=== PATIENT | female | born 1945 | race Caucasian/White ===

== ENCOUNTER → 2016-09-22 | Outpatient (CLI) | payer MEDICARE, BC ==
--- NOTE | 2016-09-23 08:55 | DEXA ---
AP SPINE L1 - L4 0.901 -2.4 -0.3 LT FEMUR TOTAL 0.748 -2.1 -0.3 RT FEMUR TOTAL 0.747 -2.1 -0.3 TOTAL BODY TOTAL OTHER DUAL FEMUR FRAX* ASSESSMENT Risk factors: Current hormone use. 10 year probability of fracture Major osteoporotic fracture 12.1 % Hip fracture 2.7 % COMMENTS: There is low bone density of the spine and hips. The decreased density of the spine does represent a significant change. The decreased density of the left hip does represent a significant change. The decreased density of the right hip does represent a significant change. The density of the spine has decreased 9.7% since the initial exam on 2000. The spine density has decreased 8.5% since the most recent exam on 02/01/2014. The density of the left hip has decreased 12.9% since the initial exam on 2000. The density of the left hip has decreased 3.0% since the most recent exam on . The density of the right hip has decreased 11.0% since the initial exam on 07/13. The density of the right hip has decreased 2.1% since the most recent exam on . FOLLOW-UP: Recommendation for the next bone density exam: 2 years. TIMMY
== END ==
LOC: M WHC 09:03
PROVIDERS: ATTEND Internal Medicine
DX: Z01.419 Encounter for gynecological examination (general) (routine) without abnormal findings (principal); M85.80 Other specified disorders of bone density and structure, unspecified site; Z78.0 Asymptomatic menopausal state; Z82.62 Family history of osteoporosis
CPT/HCPCS: 77080; G0101

== ENCOUNTER → 2017-06-25 | Day surgery (SDC) | payer MEDICARE, BC, OTHER ==
[~2017-06-25] MED LIST: LIDOCAINE 2% INJ 100 MG/5 ML SDV (FOR ANES.) As Ordered; PROPOFOL 200 MG/20 ML VIAL As Ordered
[2017-06-25] MEDS: NS 1,000 ML IV (09:42)
== END | disposition home or self-care (01) ==
LOC: M OPP 08:10
DX: K22.70 Barrett's esophagus without dysplasia (principal); K22.8 Other specified diseases of esophagus; K44.9 Diaphragmatic hernia without obstruction or gangrene; I10 Essential (primary) hypertension; E78.5 Hyperlipidemia, unspecified; R12 Heartburn; K21.9 Gastro-esophageal reflux disease without esophagitis; R51 Headache; Z78.0 Asymptomatic menopausal state; R06.83 Snoring; M85.80 Other specified disorders of bone density and structure, unspecified site; Z85.828 Personal history of other malignant neoplasm of skin; Z88.0 Allergy status to penicillin; Z88.2 Allergy status to sulfonamides; Z88.8 Allergy status to other drugs, medicaments and biological substances; Z91.013 Allergy to seafood
CPT/HCPCS: 43239

== ENCOUNTER → 2020-05-02 | Outpatient (CLI) | payer SELFPAY ==
[~2020-05-02] MED LIST changes: +AMLO2.5T3 PO; +ASPI81TA26 PO; +ATOR1TAB19 PO; +CALCTAB29 PO; +COEN60CA PO; +FISH500C PO; +KLOR10TA76 PO; -LIDOCAINE 2% INJ 100 MG/5 ML SDV (FOR ANES.) As Ordered; +LOSA100T50 PO; +MAGN400C2 PO; +MULT1TAB10 PO; +OMEP1CAP73 PO; -PROPOFOL 200 MG/20 ML VIAL As Ordered
== END ==
LOC: M LABSMTC 10:34
PROVIDERS: ATTEND Pediatrics
DX: Z20.828 Contact with and (suspected) exposure to other viral communicable diseases (principal)

== ENCOUNTER → 2020-09-11 | Outpatient (CLI) | payer MEDICARE, BC, OTHER ==
[~2020-09-11] MED LIST changes: +CALC600C3 PO; +GNP10TAB20 PO; +META0.52 PO; +VITMTA PO
== END ==
LOC: M LABSMTC 11:17
PROVIDERS: ATTEND Anesthesiology
DX: Z01.818 Encounter for other preprocedural examination (principal); Z11.52 Encounter for screening for COVID-19

== ENCOUNTER 2020-09-16 14:00 | Day surgery (SDC) | payer MEDICARE, BC, OTHER ==
[~2020-09-16] VITALS: Ht 152.4 cm; Wt 54.0 kg
[~2020-09-16 14:00] MED LIST changes: +NS 1,000 ML IV ONE
[2020-09-16] MEDS ORDERED: LIDOCAINE 2% 100MG/5ML SDV (FOR ANES.) As Ordered ONE (16:12)
[2020-09-16] MEDS ORDERED: fentaNYL 100 MCG/2 ML INJECTION (J3010) As Ordered ONE (16:12)
[2020-09-16] MEDS ORDERED: propofoL 200 MG/20 ML VIAL As Ordered ONE (16:12)
--- NOTE | 2020-09-16 16:22 | ROOR ---
Patient Name: Richa Santamaria Procedure Date: 09/16/2020 4:04 PM Date of : 1945 Age: 75 Room: [facility] Gender: Female Note Status: Finalized Procedure: Upper GI endoscopy Indications: Surveillance for malignancy due to personal history of Enriquez's esophagus Providers: Samy CARDOZA MD Referring MD: Marina MCARTHUR MD Requesting Provider: Medicines: Monitored Anesthesia Care Complications: No immediate complications. Procedure: Pre-Anesthesia Assessment: - The heart rate, respiratory rate, oxygen saturations, blood pressure, adequacy of pulmonary ventilation, and response to care were monitored throughout the procedure. The Endoscope was introduced through the mouth, and advanced to the second part of duodenum. The upper GI endoscopy was accomplished without difficulty. The patient tolerated the procedure well. Findings: The Z-line was variable and was found 37 cm from the incisors. Biopsies were taken with a cold forceps for histology. The examined esophagus was normal. Small Hiatal Hernia. The entire examined stomach was normal. A small diverticulum was found in the second portion of the duodenum. The examined duodenum was normal. Impression: - Z-line variable, 37 cm from the incisors. Biopsied. - Othrwise normal esophagus. - Small Hiatal Hernia, otherwise normal stomach. - Duodenal diverticulum, otherwise normal duodenum. Recommendation: - Repeat upper endoscopy in 3 years for surveillance. - Continue present medications. Procedure Code(s): --- Professional --- 20869, Esophagogastroduodenoscopy, flexible, transoral; with biopsy, single or multiple Diagnosis Code(s): --- Professional --- K57.10, Diverticulosis of small intestine without perforation or abscess without bleeding K22.8, Other specified diseases of esophagus K22.70, Enriquez's esophagus without dysplasia CPT copyright 2019 [employer]. All rights reserved. The codes documented in this report are preliminary and upon rig operator review may be revised to meet current compliance requirements. Samy Cardoza MD Samy CARDOZA MD 09/16/2020 4:22:04 PM Electronically signed by Samy CARDOZA MD Number of Addenda: 0 Note Initiated On: 09/16/2020 4:04 PM Estimated Blood Loss: Estimated blood loss: none.
[2020-09-16 16:45] VITALS: BP 184/78
== END 2020-09-16 16:57 | disposition home or self-care (01) ==
LOC: M OPP 14:00
PROVIDERS: ATTEND Internal Medicine Gastroenterology
DX: K22.8 Other specified diseases of esophagus (principal); K57.30 Diverticulosis of large intestine without perforation or abscess without bleeding; K21.9 Gastro-esophageal reflux disease without esophagitis; I10 Essential (primary) hypertension; K44.9 Diaphragmatic hernia without obstruction or gangrene; K31.89 Other diseases of stomach and duodenum; Z79.899 Other long term (current) drug therapy; Z88.0 Allergy status to penicillin; Z88.2 Allergy status to sulfonamides; Z88.8 Allergy status to other drugs, medicaments and biological substances; Z91.013 Allergy to seafood
CPT/HCPCS: 43239; 88305; J3010

== ENCOUNTER → 2020-10-17 | Outpatient (REF) | payer MEDICARE, OTHER ==
[~2020-10-17] MED LIST changes: -NS 1,000 ML IV ONE
== END ==
LOC: M LAB REF 17:17
PROVIDERS: ATTEND Internal Medicine
DX: N76.0 Acute vaginitis (principal)

== ENCOUNTER → 2020-11-25 | Outpatient (CLI) | payer MEDICARE, BC ==
--- NOTE | 2020-11-25 10:30 | REPMRS ---
Patient History The patient states she has not had a clinical breast exam in over a year. No known family history of cancer. Taking estrogen for 5 years. Took unspecified hormones for 7 years. No breast complaints today Patient signed the MRS sheet 1st covid vaccine 06/16/20-left arm-Pfizer 2nd covid vaccine 07/07/20--left arm Most recent mammos done @ [facility] Patient Identification Verified Digital Woman Screen Mammo: November 25, 2020 - Exam #: [id number] Bilateral CC and MLO view(s) were taken. Technologist: Hermelinda Foster, Technologist Prior study comparison: February 05, 2015, digital woman screen mammo performed at [facility]. November 29, 2014, left breast digital mammo diagnostic unilateral, performed at [facility]. FINDINGS: The breast tissue is heterogeneously dense. This may lower the sensitivity of mammography. Screening. Digital screening (2D) mammography was performed bilaterally in the CC and MLO projections. Additionally, breast tomosynthesis (3D mammography) was performed bilaterally in the CC and MLO projections. Todays exam was compared to the prior exam/exams. By history, the patient has no complaints of a palpable breast abnormality or other significant breast complaints. The breasts are unchanged in size and shape.Once again, dense heterogenous fibroglandular elements are seen bilaterally in a stable appearing pattern but to such a degree that the sensitivity of the mammogram in detecting cancer is decreased. There are no janelle-soft tissue densities or spiculated masses. There is no internal architectural distortion.Once again, stable benign appearing calcifications are seen. There are no suspicious janelle-calcific clusters. Skin thickening or nipple retraction is not present. IMPRESSION: BI-RADS Category 2- Benign Findings. There is no evidence of malignant alteration of the breasts. Followup examination recommended in one year. The Volpara volumetric breast density category is C, the breasts are heterogenously dense which may obscure small masses. This mammogram was read with the assistance of [employer],an FDA approved computer aided detection system for mammography. The lifetime Tyrer-Cuzick score is 3.4 % Due to the density of the breasts or Tyrer Cuzick score of 20% or greater, MRI/whole breast screening ultrasound is warranted. Negative x-ray reports should not delay surgical consultation if a dominant or clinically suspicious mass is present. Not all breast cancers can be identified by mammography. Therefore, we recommend that you continue to perform regular breast self-examination and physical examination and then promptly contact your physician of any concerns or changes. Adenosis and dense breasts may obscure an underlying neoplasm. Assessment: BI-RADS/ACR category 2 mammogram. Benign Findings. Recommendation Routine screening mammogram of both breasts in 1 year. Electronically Signed By: Jimbo Conte DO 11/25/20 [id number]
== END ==
LOC: M WHC 09:14
PROVIDERS: ATTEND Internal Medicine
DX: Z12.31 Encounter for screening mammogram for malignant neoplasm of breast (principal)

== ENCOUNTER → 2020-12-17 | Outpatient (REF) | payer MEDICARE, BC ==
[~2020-12-17] MED LIST changes: +CLON0.5T2 PO; +ESTR0.1C5 TOP; -KLOR10TA76 PO; +LOSA100T45 PO; -LOSA100T50 PO; +LOSA50TA28 PO; +POTA-136 PO; +REST0.05 OU
== END ==
LOC: M LAB REF 16:20
PROVIDERS: ATTEND Internal Medicine
DX: N76.0 Acute vaginitis (principal)

== ENCOUNTER → 2020-12-17 | Outpatient (CLI) | payer MEDICARE, BC ==
[~2020-12-17] MED LIST changes: -CLON0.5T2 PO; -ESTR0.1C5 TOP; +KLOR10TA76 PO; -LOSA100T45 PO; +LOSA100T50 PO; -LOSA50TA28 PO; -POTA-136 PO; -REST0.05 OU
--- NOTE | 2020-12-17 10:28 | DEXAMM ---
INDICATION: M85.80 [facility] DISRD OF BONE DENSITY AND STRUCTURE. COMPARISON: 09/22/2016 as well as other prior exams. TECHNIQUE: Bone density was measured using dual-energy x-ray absorptiometry (DEXA). FINDINGS: AP SPINE L1-L4 BMD 0.876 g/cm2 Young Adult T-Score -2.6 Age Matched Z-Score -0.8. LT FEMUR, TOTAL BMD 0.738 g/cm2 Young Adult T-Score -2.1 Age Matched Z-Score -0.4. LT NECK BMD 0.718 g/cm2 Young Adult T-Score -2.3 Age Matched Z-Score -0.4. RT FEMUR, TOTAL BMD 0.723 g/cm2 Young Adult T-Score -2.3 Age Matched Z-Score -0.5. RT NECK BMD 0.713 g/cm2 Young Adult T-Score -2.3 Age Matched Z-Score -0.4. IMPRESSION: There is osteoporosis of the spine. There is low bone density of the left hip. There is low bone density of the right hip. The density of the spine has decreased 12.2% since the initial exam on 07/13/2000. The density of the spine decreased 2.8% since most recent exam on 09/22/2016. The density of the left hip has decreased 14.1% since initial exam on 07/13/2000. The density of the left hip has decreased 1.3% since most recent exam on 09/22/2016. The density of the right hip has decreased 13.8% since the initial exam on 07/13/2000. The density of the right hip has decreased 3.2% since the most recent exam on 09/22/2016. FOLLOW-UP: Recommendation for the next bone density exam: 2 years. <Electronically signed by Davin Elder > 12/17/20 1024
== END ==
LOC: M WHC 08:50
PROVIDERS: ATTEND Internal Medicine
DX: M81.0 Age-related osteoporosis without current pathological fracture (principal); M85.851 Other specified disorders of bone density and structure, right thigh; M85.852 Other specified disorders of bone density and structure, left thigh; M85.88 Other specified disorders of bone density and structure, other site; N76.0 Acute vaginitis

== ENCOUNTER → 2021-03-01 | Outpatient (CLI) | payer MEDICARE, BC, OTHER ==
[~2021-03-01] MED LIST changes: -KLOR10TA76 PO; +POTA-136 PO
== END ==
LOC: M LABSMTC 11:18
PROVIDERS: ATTEND Anesthesiology
DX: Z01.818 Encounter for other preprocedural examination (principal); Z11.52 Encounter for screening for COVID-19

== ENCOUNTER 2021-03-06 06:07 | Day surgery (SDC) | payer MEDICARE, BC, OTHER ==
[~2021-03-06] VITALS: Ht 152.4 cm; Wt 50.8 kg
[~2021-03-06 06:07] MED LIST changes: +CLON0.5T2 PO; +ESTR0.1C5 TOP; +LIDOCAINE 1% MDV 20ML VIAL SQ PRN; +LOSA50TA88 PO; +PHENAZOPYRIDINE 100 MG TAB PO ONE; +REST0.05 OU; +UNRESOLVED CLARIFICATION ENTRY XX SCH
--- OUTSIDE RECORDS SUMMARY | 2021-03-06 06:15 | CCD | Continuity of Care Document ---
Author Author Richa Borges M.D. Organization Unknown Address [address] [facility] [address] [place] [address] Phone [phone] Care Team Providers Care Hand Paster Name Role Phone Marina Borges MD AUTM [phone] Farrah Henderson MD AUTM [phone] [facility] AUTM [phone] [facility] AUTM [phone] Oanh Melvin MD AUTM [phone] Samy Cardoza MD AUTM [phone] Ry Benitez DO AUTM [phone] Rama Shelton AUTM [phone] Problems Active Problems Provider Date Enriquez's esophagus Dheeraj Figueroa D.O. Onset: 2010 Osteoporosis Dheeraj Figueroa D.O. Onset: 2010 Essential hypertension Dheeraj Figueroa D.O. Onset: Gastroesophageal reflux disease Dheeraj Figueroa D.O. O nset: 04/29/2011 Pure hypercholesterolemia Dheeraj Figueroa D.O. Onset: 04/29/2011 Social History Type Date Description Comments Sex Unknown ETOH Use Consumes 1 glass of wine per day ETOH Use Occasionally consumes beer ETOH Use Occasionally consumes alcohol Tobacco Use Start: Unknown Patient has never smoked Allergies and adverse reactions Active Allergies Criticality Reaction | Severity Comments Date Shrimp Unable to assess criticality HIVES FACE SWELLS 01/25/2012 Sulfa Unable to assess criticality rash 02/24/2018 Penicillin Unable to assess criticality rash 02/24/2018 Compazine Unable to assess criticality muscle spasm s 02/24/2018 Medications Active Medications SIG Qnty Indications Ordering Provide r Date Clonazepam 0.5mg Tablets take 1/2 tablet by mouth twice a day (max 1 daily) 30tabs Marina sanchez M.D. 01/07/2021 Stool Softener 100mg Capsules 1-2 by mouth every day Marina Borges M.D. 01/08/20 21 Amlodipine Besylate 5mg Tablets Take 1 Tablet AT Bedtime 90tabs Marina Borges M.D. 2020 Losartan Potassium 50mg Tablets Take 1 Tablet Daily 90tabs Marina Borges M.D. 12/19/19 21 Atorvastatin Calcium 10mg Tablets Take 1 Tablet Daily 90tabs Marina Borges M.D. 07/23/19 21 Metamucil 28.3% Powder 1-2 tablespoon every morning as tolerated 1150gm Dwight Olivo 05/08/2020 Estradiol 0.1mg/GM Cream insert 1/2 gram vaginally twice a week 43units Marina Borges M.D. 1 06/06/2018 Restasis 0.05% Emulsion 1 drop both eyes twice a day Marina Borges M.D. 02/17/20 19 Fluticasone Propionate 50mcg/Act Suspension 2 sprays in each nostril once daily 16gm H68.002 [place]o [place], PATRICIO 02/24/2018 Epipen 2-Pineda 0.3mg/0 .3ML Solution Auto-Inject inject as directed prn 1units Marina Borges M.D. 04/04/[address] take 1 capsule by mouth in the morning 90caps Marina Borges M.D. 03/29/2014 Potassium Chloride ER 20Meq Tablet s ER 1 by mouth every day 90tabs Marina Borges M.D. 09/04 Magnesium 400mg Capsules 1 po bid Marina Borges M.D. 06/29/2013 Calcium Citrate + D [id number]-Kbsv Tablets 1 po qd 60tabs Marina Borges M.D. 11/14 Multivital Tablets 1 po qd Marina Borges M.D. 01/25/2012 Fish Oil Double Strength 1200mg Ca psules 1 po qd Marina Borges M.D. 01/25/20 12 Co Q10 200mg Capsules 1 by mouth every day Marina Borges M.D. 01/25/20 12 Saline Nasal Ignacio 0.65% Solution 6-8x/d as directed Marina Borges M.D. 04/29/20 11 Levocetirizine Dihydrochloride 5mg Tablets take one tablet by mouth every zhen Marina Borges M.D. History Medications Fluconazole 100mg Tablets 1 by mouth every day x7 d 7tabs Marina Borges M.D. 12/18/19 - 01/07/2021 Pessary Merida Marina Borges M.D. 0 12/04/2020 - 02/25/2021 Diflucan 150mg Tablets 1 by mouth x1 1tabs Marina Borges M.D. 10/21/2020 - Medications Administered in Office Medication SIG Qnty Indications Ordering Provider Date Administration Of Flu Vaccine Inj frank Borges M.D. 02/13/20 20 Administration Of Flu Vaccine Inj frank Borges M.D. 02/17/20 19 Administration Of Flu Vaccine Inj DULCE ThurmanP 02/24/2018 Administration Of Flu Vaccine Inj frank Borges M.D. 03/18/20 17 Administration Of Flu Vaccine Inj frank Borges M.D. 03/10/20 16 Administration Of Flu Vaccine Inj frank Borges M.D. 04/04/20 15 Administration Of Flu Vaccine Inj frank Borges M.D. 03/01/20 14 Administration Of Flu Vaccine Inj frank Borges M.D. 03/28/20 13 Administration Of Flu Vaccine Inj ection Marina Borges M.D. 02/23/20 12 Immunizations CPT Code Status Date Vaccine Lot # 48737 Given 02/13/2020 Influenza Vaccin e Quadrivalent Preser/Antibiotic Free Im Use [id number] 16125 Given 02/16/2019 Influenza Vaccin e Quadrivalent Preser/Antibiotic Free Im Use [id number] 82817 Given 02/24/2018 Influenza Virus Vaccine, Quadrivalent ([id number]), Derived From 9 Given 2017 Influenza Vaccin e Quadrivalent Preser/Antibiotic Free Im Use [id number] U-[id number] Given 02/11/2017 Prevnar 13 05433 Given 08/11/2016 Adacel- Tetanus Diphtheria P ertussis [id number] Q2037 Given 03/10/2016 Fluvirin Virus Vaccine 72990 01 Q2037 Given 04/04/2015 Fluvirin Virus Vaccine 11833 01 Q2037 Given 03/01/2014 Fluvirin Virus Vaccine 45098 21 Q2037 Given 03/28/2013 Fluvirin Virus Vaccine 50441 01 Q2037 Given 02/23/2012 Fluvirin Virus Vaccine 54348 01 64094 Given 01/25/2012 Pneumovax 23 [id number] Q2037 Given 03/10/2011 Fluvirin Virus Vaccine 96316 Given 02/17/2010 Influenza Virus Vaccine 97845 Refused 08/11/2018 Zoster Vaccine 34319 Refused 08/10/2017 Zoster Vaccine Vital Signs Date Vital Result Comment 02/25/2021 1:00pm BP Systolic 130 mmHg BP Diastolic 80 mmHg Heart Rate 87 /min Height 60.25 inches 5'0.25" Weight 114.00 lb BMI (Body Mass Index) 22.1 kg/m2 01/28/2021 1:44pm BP Systolic 144 mmHg RT Arm BP Diastolic 80 mmHg RT Arm Heart Rate 104 /min Height 60.25 inches 5'0.25" Weight 114.50 lb BMI (Body Mass Index) 22.2 kg/m2 Results Test Acquired Date Facility Test Result H/L Range Note Basic Metabolic Panel 02/24/2021 [facility] [employer] Consultant: Dr Michael Bullock [place] [id number] [phone] Glucose 96 mg/dL 74 - 99 1 BUN 6 mg/dL Low 7 - 18 Creatinine 0.7 mg/dL 0.6 - 1.3 Sodium 134 mEq/L Low 136 - 145 Potassium 4.1 mEq/L 3.5 - 5.1 Chloride 96 mEq/L Low 98 - 107 Carbon Dioxide 31 mEq/L 21 - 32 Calcium 9.3 mg/dL 8.5 - 10.1 GFR >= 60 mL/min >60 GFR >= 60 mL/min >60 2 Lipid Profile 02/24/2021 [facility] [employer] Consultant: [place] [address] [phone] Cholesterol 184 mg/dL 131 - 200 Triglycerides 45 mg/dL 30 - 150 HDL Cholesterol 99 mg/dL High 35 - 60 LDL (Calculated) 76 CALC 50 - 159 Laboratory test finding 02/24/2021 [facility] [employer] Consultant: [place] [address] [phone] Creatine Kinase(CK) 87 U/L 26 - 192 Basic Metabolic Panel 01/28/2021 [facility] [employer] Consultant: [place] [address] [phone] Glucose 137 mg/dL High 74 - 99 3 BUN 11 mg/dL 7 - 18 Creatinine 0.7 mg/dL 0.6 - 1.3 Sodium 137 mEq/L 136 - 145 Potassium 3.9 mEq/L 3.5 - 5.1 Chloride 100 mEq/L 98 - 107 Carbon Dioxide 31 mEq/L 21 - 32 Calcium 9.2 mg/dL 8.5 - 10.1 GFR >= 60 mL/min >60 GFR >= 60 mL/min >60 4 Laboratory test finding 01/28/2021 [facility] [employer] Consultant: [place] [address] [phone] Vitamin D 25-Hydroxy 54.0 ng/ml 24.0 - 80.0 5 Basic Metabolic Panel 01/15/2021 [facility] [employer] Consultant: [place] [address] [phone] Glucose 97 mg/dL 74 - 99 6 BUN 9 mg/dL 7 - 18 Creatinine 0.7 mg/dL 0.6 - 1.3 Sodium 136 mEq/L 136 - 145 Potassium 4.5 mEq/L 3.5 - 5.1 Chloride 100 mEq/L 98 - 107 Carbon Dioxide 26 mEq/L 21 - 32 Calcium 9.5 mg/dL 8.5 - 10.1 GFR >= 60 mL/min >60 GFR >= 60 mL/min >60 7 Basic Metabolic Panel 01/07/2021 [facility] [employer] Consultant: Dr Michael Bullock [place], [place] [id number] [phone] Glucose 132 mg/dL High 74 - 99 8 BUN 11 mg/dL 7 - 18 Creatinine 0.7 mg/dL 0.6 - 1.3 Sodium 133 mEq/L Low 136 - 145 Potassium 3.5 mEq/L 3.5 - 5.1 Chloride 98 mEq/L 98 - 107 Carbon Dioxide 32 mEq/L 21 - 32 Calcium 9.1 mg/dL 8.5 - 10.1 GFR >= 60 mL/min >60 GFR >= 60 mL/min >60 9 Basic Metabolic Panel 12/17/2020 [facility] [employer] Consultant: [place] [address] [phone] Glucose 148 mg/dL High 74 - 99 10 BUN 11 mg/dL 7 - 18 Creatinine 0.7 mg/dL 0.6 - 1.3 Sodium 134 mEq/L Low 136 - 145 Potassium 3.7 mEq/L 3.5 - 5.1 Chloride 97 mEq/L Low 98 - 107 Carbon Dioxide 31 mEq/L 21 - 32 Calcium 9.6 mg/dL 8.5 - 10.1 GFR >= 60 mL/min >60 GFR >= 60 mL/min >60 11 Laboratory test finding 12/17/2020 [facility] [address] [place], [place] [id number] [phone] Genital Culture FULL REPORT IN L <SEE NOTE> Normal 12 Complete Blood Count 12/03/2020 [facility] [employer] Consultant: [place] [address] [phone] WBC 6.5 x10*3/UL 4.1 - 10.9 RBC 4.38 x10*6/UL 4.20 - 6.30 Hemoglobin 14.3 g/dL 12.0 - 18.0 Hematocrit 41.2 % 37.0 - 51.0 MCV 94.0 fL 80.0 - 97.0 MCH 32.6 pg High 26.0 - 32.0 MCHC 34.7 g/dL 31.0 - 38.0 RDW 12.6 % 11.6 - 13.7 PLT 294 x10*3/UL 140 - 440 MPV 7.2 FL Low 7.8 - 11.0 Lymph % 21.4 % 10.0 - 58.5 Mid % 6.6 % 1.7 - 9.3 Neut % 72.0 % 37.0 - 92.0 Lymph # 1.4 x10*3/UL 0.6 - 4.1 Mid # 0.4 x10*3/UL 0.1 - 0.6 Neut # 4.7 x10*3/UL 2.0 - 7.8 Ua Dipstick Only 12/03/2020 [facility] [employer] Consultant: [place] [address] [phone] Urine Color YELLOW Yellow Urine Appearance CLOUDY Abnormal Clear Urine PH 8.0 units 5.0 - 9.0 Urine Specific Rotan 1.010 1.005 - 1.030 Urine Leukocytes LARGE Abnormal Negative Urine Blood NEGATIVE Negative Urine Protein NEGATIVE Negative -Trace Urine Glucose NEGATIVE mg/dL Negative Urine Nitrite NEGATIVE Negative Urine Ketone NEGATIVE mg/dL Negative Urine Bilirubin NEGATIVE Negative Urine Urobilinogen 0.2 mg/dL 0.2 - 1.0 Laboratory test finding 12/03/2020 [facility] [employer] Consultant: [place] [address] [phone] Thyroid Stimulating Hormone 2.77 uIU/mL 0.3 6 - 3.74 Lipid Profile 12/03/2020 [facility] [employer] Consultant: [place] [address] [phone] Cholesterol 166 mg/dL 131 - 200 Triglycerides 44 mg/dL 30 - 150 HDL Cholesterol 111 mg/dL High 35 - 60 LDL (Calculated) 46 CALC Low 50 - 159 Comprehensive Chem Profile 12/03/2020 [facility] [employer] Consultant: Dr Michael Funglogg [place], [place] [id number] [phone] Glucose 104 mg/dL High 74 - 99 13 BUN 8 mg/dL 7 - 18 Creatinine 0.7 mg/dL 0.6 - 1.3 Sodium 134 mEq/L Low 136 - 145 14 Potassium 3.9 mEq/L 3.5 - 5.1 Chloride 97 mEq/L Low 98 - 107 Carbon Dioxide 29 mEq/L 21 - 32 Calcium 9.4 mg/dL 8.5 - 10.1 Alk. Phosphatase 75 mg/dL 46 - 116 Total Bilirubin 0.9 mg/dL 0.2 - 1.0 Ast (Sgot) 32 U/L 15 - 37 Alt (SGPT) 31 U/L 12 - 78 Albumin 4.0 g/dL 3.4 - 5.0 Total Protein 7.3 g/dL 6.4 - 8.2 A/G Ratio 1.21 CALC 1.00 - 1.90 GFR >= 60 mL/min >60 GFR >= 60 mL/min >60 15 Laboratory test finding 12/03/2020 [facility] [employer] Consultant: Dr Michael Bullock [place], [place] [id number] [phone] Magnesium 1.8 mg/dL 1.8 - 2.4 Creatine Kinase(CK) 88 U/L 26 - 192 Xray 11/25/2020 [facility] [address] [place], [place] [id number] [phone] Dexa/Bone Density <pending> 3D Bi-Lateral Mammogram <pending> Laboratory test finding [facility]/17[facility] [address] [place] [address] [phone] Genital Culture FULL REPORT IN L <SEE NOTE> Normal 16 1 NOTE: LYTES VERIFIED 100-125 mg/dL PRE-DIABETES/FASTING >126 mg/dL DIABETES/FASTING 2 CHRONIC KIDNEY DISEASE STAGI NG PER NKF STAGE I & II GFR >= 60 NORMAL TO MILDLY DECREASED STAGE III GFR 30-59 MODERATELY DECREASED STAGE IV GFR 15-29 SEVERELY DECREASED STAGE V GFR <15 VERY LITTLE GFR LEFT ESRD GFR <15 ON ADJUSTMENT EXAMINER 3 100-125 mg/dL PRE-DIABET ES/FASTING >126 mg/dL DIABETES/FASTING 4 CHRONIC KIDNEY DISEASE STAGI NG PER NKF STAGE I & II GFR >= 60 NORMAL TO MILDLY DECREASED STAGE III GFR 30-59 MODERATELY DECREASED STAGE IV GFR 15-29 SEVERELY DECREASED STAGE V GFR <15 VERY LITTLE GFR LEFT ESRD GFR <15 ON ADJUSTMENT EXAMINER 5 This test was performed [employer] Vitamin D immunoassay kit. Values obtained with different assay methods should not be used interchangeably. 6 100-125 mg/dL PRE-DIABET ES/FASTING >126 mg/dL DIABETES/FASTING 7 CHRONIC KIDNEY DISEASE STAGI NG PER NKF STAGE I & II GFR >= 60 NORMAL TO MILDLY DECREASED STAGE III GFR 30-59 MODERATELY DECREASED STAGE IV GFR 15-29 SEVERELY DECREASED STAGE V GFR <15 VERY LITTLE GFR LEFT ESRD GFR <15 ON ADJUSTMENT EXAMINER 8 100-125 mg/dL PRE-DIABET ES/FASTING >126 mg/dL DIABETES/FASTING 9 CHRONIC KIDNEY DISEASE STAGI NG PER NKF STAGE I & II GFR >= 60 NORMAL TO MILDLY DECREASED STAGE III GFR 30-59 MODERATELY DECREASED STAGE IV GFR 15-29 SEVERELY DECREASED STAGE V GFR <15 VERY LITTLE GFR LEFT ESRD GFR <15 ON ADJUSTMENT EXAMINER 10 100-125 mg/dL PRE-DIABET ES/FASTING >126 mg/dL DIABETES/FASTING 11 CHRONIC KIDNEY DISEASE STAGI NG PER NKF STAGE I & II GFR >= 60 NORMAL TO MILDLY DECREASED STAGE III GFR 30-59 MODERATELY DECREASED STAGE IV GFR 15-29 SEVERELY DECREASED STAGE V GFR <15 VERY LITTLE GFR LEFT ESRD GFR <15 ON ADJUSTMENT EXAMINER 12 FULL REPORT IN LAB NOTES (eC W and Medent). NORMAL LIYAH PRESENT ORGANISM 1: YEAST LIKE ORGANISM QUANTITY OF GROWTH FEW ORGANISM 1: YEAST LIKE ORGANISM 13 100-125 mg/dL PRE-DIABET ES/FASTING >126 mg/dL DIABETES/FASTING 14 NOTE: LYTES VERIFIED 15 CHRONIC KIDNEY DISEASE STAGI NG PER NKF STAGE I & II GFR >= 60 NORMAL TO MILDLY DECREASED STAGE III GFR 30-59 MODERATELY DECREASED STAGE IV GFR 15-29 SEVERELY DECREASED STAGE V GFR <15 VERY LITTLE GFR LEFT ESRD GFR <15 ON ADJUSTMENT EXAMINER 16 FULL REPORT IN LAB NOTES (eC W and Medent). NORMAL LIYAH PRESENT ORGANISM 1: YEAST LIKE ORGANISM QUANTITY OF GROWTH FEW ORGANISM 1: YEAST LIKE ORGANISM Procedures Date Code Description Status 01/28/2021 41004 Office/Outpatient Established Mo d MDM 30-39 Min Completed 01/07/2021 47170 Office/Outpatient Established Mo d MDM 30-39 Min Completed 12/17/2020 60877 Office/Outpatient Established Mo d MDM 30-39 Min Completed 12/17/2020 [id number] Bone Mineral Density Test Comple king 12/04/2020 83094 Office/Outpatient Established Mo d MDM 30-39 Min Completed 11/25/2020 [id number] Mammogram Completed 10/17/2020 10685 Office/Outpatient Established Lo w MDM 20-29 Min Completed 11/23/2019 [id number] Mammogram Completed 09/27/2018 [id number] Mammogram Completed 09/27/2018 [id number] Bone Mineral Density Test Comple king 01/10/2018 [id number] Diabetic Retinal Eye Exam Comple king 12/22/2017 [id number] Diabetic Retinal Eye Exam Comple king 08/24/2017 [id number] Mammogram Completed 09/22/2016 [id number] Bone Mineral Density Test Comple king 08/13/2016 [id number] Mammogram Completed 02/05/2015 [id number] Mammogram Completed 12/20/2014 [id number] Colonoscopy Completed 11/29/2014 [id number] Mammogram Completed 02/01/2014 [id number] Mammogram Completed 02/01/2014 [id number] Bone Mineral Density Test Comple king 01/25/2013 [id number] Mammogram Completed 01/13/2012 [id number] Mammogram Completed 01/13/2012 [id number] Bone Mineral Density Test Comple king 12/11/2010 [id number] Mammogram Completed 12/25/2009 [id number] Bone Mineral Density Test Comple [facility] 10/26/2007 [id number] Colonoscopy Completed 07/13/2003 [id number] Mammogram Completed Medical Devices Description No Information Available Encounters Type Date Location Provider Dx Diagnosis Office Visit 01/28[facility]2021 1[facility] I10 Essential (primary) hyperten jana E87.1 Hypo-osmolality and hyponatr emia N76.0 Acute vaginitis N81.10 Cystocele, unspecified F41.9 Anxiety disorder, unspecifie d K22.70 Enriquez's esophagus without dysplasia M81.0 Age-related osteoporosis w/o current pathological fracture Office Visit 01/07/2021 2:45p [facility] N76.0 Acute vaginitis F41.9 Anxiety disorder, unspecifie d G25.81 Restless legs syndrome E87.1 Hypo-osmolality and hyponatr emia I10 Essential (primary) hyperten jana K59.00 Constipation, unspecified K22.70 Enriquez's esophagus without dysplasia Office Visit 12/17/2020 1:00p [facility] N76.0 Acute vaginitis F41.9 Anxiety disorder, unspecifie d E87.1 Hypo-osmolality and hyponatr emia I10 Essential (primary) hyperten jana K59.00 Constipation, unspecified K22.70 Enriquez's esophagus without dysplasia G25.81 Restless legs syndrome Office Visit 12/04/2020 8:45a [facility] N76.0 Acute vaginitis F41.9 Anxiety disorder, unspecifie d I10 Essential (primary) hyperten jana E87.1 Hypo-osmolality and hyponatr emia K59.00 Constipation, unspecified K22.70 Enriquez's esophagus without dysplasia E78.00 Pure hypercholesterolemia, u nspecified R73.09 Other abnormal glucose G25.81 Restless legs syndrome Office Visit 10/17/2020 1[facility]30p [facility] N76.0 Acute vaginitis F41.9 Anxiety disorder, unspecifie d Assessments Date Code Description Provider 01/28/2021 I10 Essential (primary) hypertension Marina Borges M.D. 01/28/2021 E87.1 Hypo-osmolality and hyponatremia Marina Borges M.D. 01/28/2021 N76.0 Acute vaginitis Marina contreras M.D. 01/28/2021 N81.10 Cystocele, unspecified Marina Borges M.D. 01/28/2021 F41.9 Anxiety disorder, unspecified Nasreen Borges M.D. 01/28/2021 K22.70 Enriquez's esophagus without dysp lasia Marina Borges M.D. 01/28/2021 M81.0 Age-related osteoporosis without current pathological fracture Marina Borges M.D. 01/15/2021 E87.1 Hypo-osmolality and hyponatremia Marina Borges M.D. 01/15/2021 E87.1 Hypo-osmolality and hyponatremia Lab Schedule 01/07/2021 N76.0 Acute vaginitis Marina contreras M.D. 01/07/2021 F41.9 Anxiety disorder, unspecified Nasreen Borges M.D. 01/07/2021 G25.81 Restless legs syndrome Marina Borges M.D. 01/07/2021 E87.1 Hypo-osmolality and hyponatremia Marina Borges M.D. 01/07/2021 I10 Essential (primary) hypertension Marina Borges M.D. 01/07/2021 K59.00 Constipation, unspecified Marina Borges M.D. 01/07/2021 K22.70 Enriquez's esophagus without dysp geovanyia Marina Borges M.D. 12/17/2020 N76.0 Acute vaginitis Marina contreras M.D. 12/17/2020 F41.9 Anxiety disorder, unspecified Nasreen Borges M.D. 12/17/2020 E87.1 Hypo-osmolality and hyponatremia Marina Borges M.D. 12/17/2020 I10 Essential (primary) hypertension Marina Borges M.D. 12/17/2020 K59.00 Constipation, unspecified Marina Borges M.D. 12/17/2020 K22.70 Enriquez's esophagus without dysp geovanyia Marina Borges M.D. 12/17/2020 G25.81 Restless legs syndrome Marina Borges M.D. 12/04/2020 N76.0 Acute vaginitis Marina contreras M.D. 12/04/2020 F41.9 Anxiety disorder, unspecified Nasreen Borges M.D. 12/04/2020 I10 Essential (primary) hypertension Marina Borges M.D. 12/04/2020 E87.1 Hypo-osmolality and hyponatremia Marina Borges M.D. 12/04/2020 K59.00 Constipation, unspecified Marina Borges M.D. 12/04/2020 K22.70 Enriquez's esophagus without dysp lasia Marina Borges M.D. 12/04/2020 E78.00 Pure hypercholesterolemia, unspe cified Marina Borges M.D. 12/04/2020 R73.09 Other abnormal glucose Marina Borges M.D. 12/04/2020 G25.81 Restless legs syndrome Marina Borges M.D. 12/03/2020 I10 Essential (primary) hypertension Marina Borges M.D. 12/03/2020 I10 Essential (primary) hypertension Lab Schedule 12/03/2020 E78.00 Pure hypercholesterolemia, unspe cified Marina Borges M.D. 12/03/2020 E78.00 Pure hypercholesterolemia, unspe cified Lab Schedule 12/03/2020 E87.1 Hypo-osmolality and hyponatremia Marina Borges M.D. 12/03/2020 E87.1 Hypo-osmolality and hyponatremia Lab Schedule 12/03/2020 E83.42 Hypomagnesemia Marina contreras M.D. 12/03/2020 E83.42 Hypomagnesemia Lab Schedule 10/17/2020 N76.0 Acute vaginitis Marina contreras M.D. 10/17/2020 F41.9 Anxiety disorder, unspecified Nasreen Borges M.D. Plan of Treatment Future Appointment(s):* 03/11/2021 8:00 am - Marina Borges M.D. at [facility] 01/28/2021 - Marina Borges M.D.* I10 Essential (primary) hypertension * E87.1 Hypo-osmolality and hyponatremia * N76.0 Acute vaginitis * N81.10 Cystocele, unspecified * F41.9 Anxiety disorder, unspecified * K22.70 Enriquez's esophagus without dysplasia * M81.0 Age-related osteoporosis without current pathological fracture Functional Status Description No Information Available Mental Status Description No Information Available Referrals Description No Information Available
--- OUTSIDE RECORDS SUMMARY | 2021-03-06 06:15 | CCD | Continuity of Care Document ---
Author Author Richa Borges M.D. Organization Unknown Address [address] [facility] [address] [place] [address] Phone [phone] Care Team Providers Care Manager Valuation Name Role Phone Marina Borges MD AUTM [phone] Farrah Henderson MD AUTM [phone] [facility] AUTM [phone] [facility] AUTM [phone] Oanh Melvin MD AUTM [phone] Samy Cardoza MD AUTM [phone] Ry Benitez DO AUTM [phone] Rama Shelton AUTM [phone] Problems Active Problems Provider Date Enriquez's esophagus [...] Borges M.D. 06/29/2013 Calcium Citrate + D [id number] Tablets 1 po qd 60tabs Mairna Borges M.D. 11/14 Multivital Tablets 1 po qd Marina Borges M.D. 01/25/2012 Fish Oil Double Strength 1200mg Ca psules 1 po qd Marina Borges M.D. 01/25/20 12 Co Q10 200mg Capsules 1 by mouth every day Marina Borges M.D. 01/25/20 12 Saline Nasal Sellers 0.65% Solution 6-8x/d as directed Marina Borges [...] Of Flu Vaccine Inj frank Borges M.D. 02/26/20 21 Administration Of Flu Vaccine Inj frank Borges M.D. 02/13/20 20 Administration Of Flu Vaccine Inj rfank Borges M.D. 02/17/20 19 Administration Of Flu Vaccine Inj frank [place] [facility] 02/24/2018 Administration Of Flu Vaccine Inj frank Borges M.D. 03/18/20 17 Administration Of Flu Vaccine Inj frank Borges M.D. 03/10/20 16 Administration Of Flu Vaccine Inj frank Borges M.D. 04/04/20 15 Administration Of Flu Vaccine Inj frank Borges M.D. 03/01/20 14 Administration Of Flu Vaccine Inj josephion Marina Borges M.D. 03/28/20 13 Administration Of Flu Vaccine Inj ection Marina Borges M.D. 02/23/20 12 Immunizations CPT Code Status Date Vaccine Lot # [id number] Given 02/25/2021 Influenza Vaccin e Quadrivalent Preser/Antibiotic [place] [id number] Given 02/13/2020 Influenza Vaccin e Quadrivalent Preser/Antibiotic Free Im Use [id number] 39329 Given 02/16/2019 Influenza Vaccin e Quadrivalent Preser/Antibiotic Free Im Use [id number] 75883 Given 02/24/2018 Influenza Virus Vaccine, Quadrivalent (Cciiv4), Derived From 5 Given 2017 Influenza Vaccin e Quadrivalent Preser/Antibiotic Free Im Use [id number] U-PneuC Given 02/11/2017 Prevnar 13 70587 Given 08/11/2016 Adacel- Tetanus Diphtheria P ertussis [id number] Q2037 Given 03/10/2016 Fluvirin Virus Vaccine 45872 01 Q2037 Given 04/04/2015 Fluvirin Virus Vaccine 15987 01 Q2037 Given 03/01/2014 Fluvirin Virus Vaccine 47102 21 Q2037 Given 03/28/2013 Fluvirin Virus Vaccine 21352 01 Q2037 Given 02/23/2012 Fluvirin Virus Vaccine 00720 01 95865 Given 01/25/2012 Pneumovax 23 [id number] Q2037 Given 03/10/2011 Fluvirin Virus Vaccine 66058 Given 02/17/2010 Influenza Virus Vaccine 65081 Refused 08/11/2018 Zoster Vaccine 47436 Refused 08/10/2017 Zoster Vaccine Vital Signs Date [...] Date Facility Test Result H/L Range Note Coronavirus 2019 Nasopharygeal 03/01/2021 [facility] [address] [place], [place] [id number] [phone] Coronavirus 2019 Nasopharygeal ASSAY INFORMATIO <SEE N OTE> 1 Laboratory test finding 02/24/2021 [facility] Semiconductor Processing Technician: Dr Michael Bullock [place], [place] [id number] [phone] Creatine Kinase(CK) 87 U/L 26 - 192 Basic Metabolic Panel 02/24/2021 [facility] Semiconductor Processing Technician: Dr Michael Bullock [place] [id number] [phone] Glucose 96 mg/dL 74 - 99 2 BUN 6 mg/dL Low 7 - 18 Creatinine 0.7 mg/dL 0.6 - 1.3 Sodium 134 mEq/L Low 136 - 145 Potassium 4.1 mEq/L 3.5 - 5.1 Chloride 96 mEq/L Low 98 - 107 Carbon Dioxide 31 mEq/L 21 - 32 Calcium 9.3 mg/dL 8.5 - 10.1 GFR >= 60 mL/min >60 GFR >= 60 mL/min >60 3 Lipid Profile 02/24/2021 [facility] Semiconductor Processing Technician: [place] [address] [phone] Cholesterol 184 mg/dL 131 - 200 Triglycerides 45 mg/dL 30 - 150 HDL Cholesterol 99 mg/dL High 35 - 60 LDL (Calculated) 76 CALC 50 - 159 Basic Metabolic Panel 01/28/2021 [facility] Semiconductor Processing Technician: [place] [address] [phone] Glucose 137 mg/dL High 74 - 99 4 BUN 11 mg/dL 7 - 18 Creatinine 0.7 mg/dL 0.6 - 1.3 Sodium 137 mEq/L 136 - 145 Potassium 3.9 mEq/L 3.5 - 5.1 Chloride 100 mEq/L 98 - 107 Carbon Dioxide 31 mEq/L 21 - 32 Calcium 9.2 mg/dL 8.5 - 10.1 GFR >= 60 mL/min >60 GFR >= 60 mL/min >60 5 Laboratory test finding 01/28/2021 [facility] Semiconductor Processing Technician: Dr Michael Bullock [place], [place] [id number] [phone] Vitamin D 25-Hydroxy 54.0 ng/ml 24.0 - 80.0 6 Basic Metabolic Panel 01/15/2021 [facility] Semiconductor Processing Technician: Dr Michael Bullock [place], [place] [id number] [phone] Glucose 97 mg/dL 74 - 99 7 BUN 9 mg/dL 7 - 18 Creatinine 0.7 mg/dL 0.6 - 1.3 Sodium 136 mEq/L 136 - 145 Potassium 4.5 mEq/L 3.5 - 5.1 Chloride 100 mEq/L 98 - 107 Carbon Dioxide 26 mEq/L 21 - 32 Calcium 9.5 mg/dL 8.5 - 10.1 GFR >= 60 mL/min >60 GFR >= 60 mL/min >60 8 Basic Metabolic Panel 01/07/2021 [facility] Semiconductor Processing Technician: Dr Michael Bullock [place], [place] [id number] [phone] Glucose 132 mg/dL High 74 - 99 9 BUN 11 mg/dL 7 - 18 Creatinine 0.7 mg/dL 0.6 - 1.3 Sodium 133 mEq/L Low 136 - 145 Potassium 3.5 mEq/L 3.5 - 5.1 Chloride 98 mEq/L 98 - 107 Carbon Dioxide 32 mEq/L 21 - 32 Calcium 9.1 mg/dL 8.5 - 10.1 GFR >= 60 mL/min >60 GFR >= 60 mL/min >60 10 Laboratory test finding 12/17/2020 [facility] [address] [place], [place] [id number] [phone] Genital Culture FULL REPORT IN L <SEE NOTE> Normal 11 Basic Metabolic Panel 12/17/2020 [facility] Semiconductor Processing Technician: [place] [address] [phone] Glucose 148 mg/dL High 74 - 99 12 BUN 11 mg/dL 7 - 18 Creatinine 0.7 mg/dL 0.6 - 1.3 Sodium 134 mEq/L Low 136 - 145 Potassium 3.7 mEq/L 3.5 - 5.1 Chloride 97 mEq/L Low 98 - 107 Carbon Dioxide 31 mEq/L 21 - 32 Calcium 9.6 mg/dL 8.5 - 10.1 GFR >= 60 mL/min >60 GFR >= 60 mL/min >60 13 Complete Blood Count 12/03/2020 [facility] vanessa atkinson Semiconductor Processing Technician: [place] [address] [phone] WBC 6.5 x10*3/UL 4.1 - 10.9 RBC [...] Neut # 4.7 x10*3/UL 2.0 - 7.8 Laboratory test finding 12/03/2020 [facility] saab Semiconductor Processing Technician: [place] [address] [phone] Magnesium 1.8 mg/dL 1.8 - 2.4 Creatine Kinase(CK) 88 U/L 26 - 192 Comprehensive Chem Profile 12/03/2020 [facility] Semiconductor Processing Technician: [place] [address] [phone] Glucose 104 mg/dL High 74 - 99 14 BUN 8 mg/dL 7 - 18 Creatinine 0.7 mg/dL 0.6 - 1.3 Sodium 134 mEq/L Low 136 - 145 15 Potassium 3.9 mEq/L 3.5 - 5.1 Chloride [...] mL/min >60 GFR >= 60 mL/min >60 16 Lipid Profile 12/03/2020 [facility] , Semiconductor Processing Technician: [place] [address] [phone] Cholesterol 166 mg/dL 131 - 200 Triglycerides 44 mg/dL 30 - 150 HDL Cholesterol 111 mg/dL High 35 - 60 LDL (Calculated) 46 CALC Low 50 - 159 Laboratory test finding 12/03/2020 [facility] Semiconductor Processing Technician: [place] [address] [phone] Thyroid Stimulating Hormone 2.77 uIU/mL 0.3 6 - 3.74 Ua Dipstick Only 12/03/2020 [facility] [place] [facility] Semiconductor Processing Technician: [place] [address] [phone] Urine Color YELLOW Yellow Urine Appearance CLOUDY Abnormal Clear Urine PH 8.0 units 5.0 - 9.0 Urine Specific [place] 1.010 1.005 - 1.030 Urine Leukocytes LARGE Abnormal Negative Urine Blood NEGATIVE Negative Urine Protein NEGATIVE Negative -Trace Urine Glucose NEGATIVE mg/dL Negative Urine Nitrite NEGATIVE Negative Urine Ketone NEGATIVE mg/dL Negative Urine Bilirubin NEGATIVE Negative Urine Urobilinogen 0.2 mg/dL 0.2 - 1.0 Xray 11/25/2020 [facility] [address] [place] [address] [phone] Dexa/Bone Density <pending> 3D Bi-Lateral Mammogram <pending> Laboratory test finding 10/17/2020 [facility] [address] [place] [address] [phone] Genital Culture FULL REPORT IN L <SEE NOTE> Normal 17 1 ASSAY INFORMATION: Real Time RT-PCR NOTE: The COVID-19 assay has been cleared by the U.S. Food and Drug Administration under the Emergency Use Authorization (EUA). [email or web address] and [employer] are designated as high complexity laboratories by the Clinical Laboratory Improvement Amendments of 1988(CLIA) and are qualified to perform this test. Not Detected 2 NOTE: LYTES VERIFIED 100-125 mg/dL PRE-DIABETES/FASTING >126 mg/dL DIABETES/FASTING 3 CHRONIC KIDNEY DISEASE STAGI NG PER NKF STAGE I & II GFR >= 60 NORMAL TO MILDLY DECREASED STAGE III GFR 30-59 MODERATELY DECREASED STAGE IV GFR 15-29 SEVERELY DECREASED STAGE V GFR <15 VERY LITTLE GFR LEFT ESRD GFR <15 ON HANDBAG DESIGNER 4 100-125 mg/dL PRE-DIABET ES/FASTING >126 mg/dL DIABETES/FASTING 5 CHRONIC KIDNEY DISEASE STAGI NG PER NKF STAGE I & II GFR >= 60 NORMAL TO MILDLY DECREASED STAGE III GFR 30-59 MODERATELY DECREASED STAGE IV GFR 15-29 SEVERELY DECREASED STAGE V GFR <15 VERY LITTLE GFR LEFT ESRD GFR <15 ON HANDBAG DESIGNER 6 This test was performed [employer] Vitamin D immunoassay kit. Values obtained with different assay methods should not be used interchangeably. 7 100-125 mg/dL PRE-DIABET ES/FASTING >126 mg/dL DIABETES/FASTING 8 CHRONIC KIDNEY DISEASE STAGI NG PER NKF STAGE I & II GFR >= 60 NORMAL TO MILDLY DECREASED STAGE III GFR 30-59 MODERATELY DECREASED STAGE IV GFR 15-29 SEVERELY DECREASED STAGE V GFR <15 VERY LITTLE GFR LEFT ESRD GFR <15 ON HANDBAG DESIGNER 9 100-125 mg/dL PRE-DIABET ES/FASTING >126 mg/dL DIABETES/FASTING 10 CHRONIC KIDNEY DISEASE STAGI NG PER NKF STAGE I & II GFR >= 60 NORMAL TO MILDLY DECREASED STAGE III GFR 30-59 MODERATELY DECREASED STAGE IV GFR 15-29 SEVERELY DECREASED STAGE V GFR <15 VERY LITTLE GFR LEFT ESRD GFR <15 ON HANDBAG DESIGNER 11 FULL REPORT IN LAB NOTES ([facility] and [facility]). NORMAL LIYAH PRESENT ORGANISM 1: YEAST LIKE ORGANISM QUANTITY OF GROWTH FEW ORGANISM 1: YEAST LIKE ORGANISM 12 100-125 mg/dL PRE-DIABET ES/FASTING >126 mg/dL DIABETES/FASTING 13 CHRONIC KIDNEY DISEASE STAGI NG PER NKF STAGE I & II GFR >= 60 NORMAL TO MILDLY DECREASED STAGE III GFR 30-59 MODERATELY DECREASED STAGE IV GFR 15-29 SEVERELY DECREASED STAGE V GFR <15 VERY LITTLE GFR LEFT ESRD GFR <15 ON HANDBAG DESIGNER 14 100-125 mg/dL PRE-DIABET ES/FASTING >126 mg/dL DIABETES/FASTING 15 NOTE: LYTES VERIFIED 16 CHRONIC KIDNEY DISEASE STAGI NG PER NKF STAGE I & II GFR >= 60 NORMAL TO MILDLY DECREASED STAGE III GFR 30-59 MODERATELY DECREASED STAGE IV GFR 15-29 SEVERELY DECREASED STAGE V GFR <15 VERY LITTLE GFR LEFT ESRD GFR <15 ON HANDBAG DESIGNER 17 FULL REPORT IN LAB NOTES ([facility] and [facility]). NORMAL LIYAH PRESENT ORGANISM 1: YEAST LIKE ORGANISM QUANTITY OF GROWTH FEW ORGANISM 1: YEAST LIKE ORGANISM Procedures Date Code Description Status 02/25/2021 93732 EKG/Interpretation & Report Comp leted 02/25/2021 92680 Office/Outpatient Established Mo d MDM 30-39 Min Completed 01/28/2021 77330 Office/Outpatient Established Mo d MDM 30-39 Min Completed 01/07/2021 55207 Office/Outpatient Established Mo d MDM 30-39 Min Completed 12/17/2020 46867 Office/Outpatient Established Mo d MDM 30-39 Min Completed 12/17/2020 [id number] Bone Mineral Density Test Comple king 12/04/2020 44476 Office/Outpatient Established Mo d MDM 30-39 Min Completed 11/25/2020 [id number] Mammogram Completed 10/17/2020 12158 Office/Outpatient Established Lo w MDM 20-29 Min Completed 11/23/2019 [id number] Mammogram Completed 09/27/2018 [id number] Mammogram Completed 09/27/2018 [id number] Bone Mineral Density Test Comple king 01/10/2018 [id number] Diabetic Retinal Eye Exam Comple king 12/22/2017 [id number] Diabetic Retinal Eye Exam Comple king 08/24/2017 [id number] Mammogram Completed 09/22/2016 [id number] Bone Mineral Density Test Comple king 08/13/2016 [id number] Mammogram Completed 02/05/2015 [id number] Mammogram Completed 12/20/2014 [id number] Colonoscopy Completed 11/29/2014 [id number] Mammogram Completed 02/01/2014 [id number] Mammogram Completed 02/01/2014 [id number] Bone Mineral Density Test Comple [facility] 01/25/2013 [id number] Mammogram Completed 01/13/2012 [id number] Mammogram Completed 01/13/2012 [id number] Bone Mineral Density Test Comple [facility] 12/11/2010 [id number] Mammogram Completed 12/25/2009 052103418 Bone Mineral Density Test Comple [facility] 10/26/2007 [id number] Colonoscopy Completed 07/13/2003 [id number] Mammogram Completed Medical Devices Description No Information Available Encounters Type Date Location Provider Dx Diagnosis Office Visit 02/25/2021 1:00p [facility] M[facility] 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 I10 Essential (primary) hyperten jana E87.1 Hypo-osmolality and hyponatr emia N76.0 Acute vaginitis N81.10 Cystocele, unspecified F41.9 Anxiety disorder, unspecifie d K22.70 Enriquez's esophagus without dysplasia M81.0 Age-related osteoporosis w/o current pathological fracture Office Visit 01/07/2021 2:45p [facility] M[facility] N76.0 Acute vaginitis F41.9 Anxiety disorder, unspecifie d G25.81 Restless legs syndrome E87.1 Hypo-osmolality and hyponatr emia I10 Essential (primary) hyperten jana K59.00 Constipation, unspecified K22.70 Enriquez's esophagus without dysplasia Office Visit 12/17/2020 1:00p [facility] M[facility] N76.0 Acute vaginitis F41.9 Anxiety disorder, unspecifie d E87.1 Hypo-osmolality and hyponatr emia I10 Essential (primary) hyperten jana K59.00 Constipation, unspecified K22.70 Enriquez's esophagus without dysplasia G25.81 Restless legs syndrome Office Visit 12/04/2020 8:45a [facility] N76.0 Acute vaginitis F41.9 Anxiety disorder, unspecifie d I10 Essential (primary) hyperten jana E87.1 Hypo-osmolality and hyponatr emia K59.00 Constipation, unspecified K22.70 Enriquez's esophagus without dysplasia E78.00 Pure hypercholesterolemia, u nspecified R73.09 Other abnormal glucose G25.81 Restless legs syndrome Office Visit 10/17/2020 1:30p [facility] N76.0 Acute vaginitis F41.9 Anxiety disorder, unspecifie d Assessments Date Code Description Provider 02/25/2021 Z01.810 Encounter for preprocedural card iovascular examination Marina Borges M.D. 02/25/2021 N81.2 Incomplete uterovaginal prolapse Marina Borges M.D. 02/25/2021 I10 Essential (primary) hypertension Marina Borges M.D. 02/25/2021 E78.00 Pure hypercholesterolemia, unspe cified Marina Borges M.D. 02/25/2021 R73.09 Other abnormal glucose Marina Borges M.D. 02/25/2021 K22.70 Enriquez's esophagus without dysp lasia Marina Borges M.D. 02/25/2021 M19.90 Unspecified osteoarthritis, unsp ecified site Marina Borges M.D. 02/25/2021 N95.2 Postmenopausal atrophic vaginiti s Marina Borges M.D. 02/25/2021 J30.9 Allergic rhinitis, unspecified J lyubov Borges M.D. 02/25/2021 M85.80 Other specified diso rders of bone density and structure, unspecified site Marina Borges M.D. 02/25/2021 G25.81 Restless legs syndrome Marina Borges M.D. 02/25/2021 Z23 Encounter for immunization Marina Borges M.D. 02/24/2021 E78.00 Pure hypercholesterolemia, unspe cified Marina Borges M.D. 02/24/2021 E78.00 Pure hypercholesterolemia, unspe cified Lab Schedule 02/24/2021 I10 Essential (primary) hypertension Marina Borges M.D. 02/24/2021 I10 Essential (primary) hypertension Lab Schedule 02/24/2021 E87.1 Hypo-osmolality and hyponatremia Marina Borges M.D. 02/24/2021 E87.1 Hypo-osmolality and hyponatremia Lab Schedule 01/28/2021 I10 Essential (primary) hypertension Marina Borges [...] 8:00 am - Marina Borges M.D. at [facility] 01/28/2021 - Marina Borges M.D.* [...]
--- OUTSIDE RECORDS SUMMARY | 2021-03-06 06:15 | CCD | Continuity of Care Document ---
Author Author Lab [facility] Organization Unknown Address [address] [place] [id number] Phone Unavailable Care Team Providers Care Clock Smith Name Role Phone Marina Borges MD AUTM [phone] Farrah Henderson MD AUTM [phone] [facility] AUTM [phone] [facility] AUTM [phone] Oanh Melvin MD AUTM [phone] Samy Cardoza MD AUTM [phone] Ry Benitez DO AUTM [phone] Rama Shelton AUTM [phone] Problems Active Problems Provider Date Enriquez's esophagus [...] Daily 90tabs Marina Borges M.D. 12/19/19 21 Pessary reyna Marina Borges M.D. 0 12/04/2020 Atorvastatin Calcium 10mg Tablets Take 1 Tablet [...] in each nostril once daily 16gm H68.002 PATRICIO Lyman 02/24/2018 Epipen 2-Pineda 0.3mg/0 .3ML Solution Auto-Inject [...] Borges M.D. 06/29/2013 Calcium Citrate + D [id number] Tablets 1 po qd 60tabs Marina Borges M.D. 11/14 Multivital Tablets 1 po qd Marina Borges M.D. 01/25/2012 Fish Oil Double Strength 1200mg Ca psules 1 po qd Marina Borges M.D. 01/25/20 12 Co Q10 200mg Capsules 1 by mouth every day Marina Borges M.D. 01/25/20 12 Saline Nasal [place] 0.65% Solution 6-8x/d as directed Marina Borges M.D. 04/29/20 11 Levocetirizine Dihydrochloride 5mg Tablets take one tablet by mouth every zhen Marina Borges M.D. History Medications Fluconazole 100mg Tablets 1 by mouth every day x7 d 7tabs Marina Borges M.D. 12/18/19 - 01/07/2021 Diflucan 150mg Tablets 1 by mouth x1 1tabs Marina Borges M.D. 10/21/2020 - Medications Administered in Office Medication SIG Qnty Indications Ordering Provider Date Administration Of Flu Vaccine Inj frank Borges M.D. 02/13/20 20 Administration Of Flu Vaccine Inj frank Borges M.D. 02/17/20 19 Administration Of Flu Vaccine Inj PATRICIO Thurman 02/24/2018 Administration Of Flu Vaccine Inj frank Borges M.D. 03/18/20 17 Administration Of Flu Vaccine Inj frank Borges M.D. 03/10/20 16 Administration Of Flu Vaccine Inj frank Borges M.D. 04/04/20 15 Administration Of Flu Vaccine Inj frank Borges M.D. 03/01/20 14 Administration Of Flu Vaccine Inj frank Borges M.D. 03/28/20 13 Administration Of Flu Vaccine Inj frank Borges M.D. 02/23/20 12 Immunizations CPT Code Status Date Vaccine Lot # [id number] Given 02/13/2020 Influenza Vaccin e Quadrivalent Preser/Antibiotic Free Im Use [id number] Given 02/16/2019 Influenza Vaccin e Quadrivalent Preser/Antibiotic Free Im Use [id number] 91725 Given 02/24/2018 Influenza Virus Vaccine, Quadrivalent ([id number]), Derived From 8 Given 2017 Influenza Vaccin e Quadrivalent Preser/Antibiotic Free Im Use [id number] Given 02/11/2017 Prevnar 13 76134 Given 08/11/2016 Adacel- Tetanus Diphtheria P ertussis [id number] Q2037 Given 03/10/2016 Fluvirin Virus Vaccine 05521 01 Q2037 Given 04/04/2015 Fluvirin Virus Vaccine 66737 01 Q2037 Given 03/01/2014 Fluvirin Virus Vaccine 36241 21 Q2037 Given 03/28/2013 Fluvirin Virus Vaccine 78647 01 Q2037 Given 02/23/2012 Fluvirin Virus Vaccine 08087 01 52265 Given 01/25/2012 Pneumovax 23 [id number] Q2037 Given 03/10/2011 Fluvirin Virus Vaccine 26685 Given 02/17/2010 Influenza Virus Vaccine [id number] Refused 08/11/2018 Zoster Vaccine 76971 Refused 08/10/2017 Zoster Vaccine Vital Signs Date Vital Result Comment 01/28/2021 1:44pm BP Systolic 144 mmHg RT Arm BP Diastolic 80 mmHg RT Arm Heart Rate 104 /min Height 60.25 inches 5'0.25" Weight 114.50 lb BMI (Body Mass Index) 22.2 kg/m2 01/07/2021 2:40pm BP Systolic 132 mmHg RT Arm BP Diastolic 86 mmHg RT Arm Heart Rate 80 /min Height 60.25 inches 5'0.25" Weight 116.00 lb BMI (Body Mass Index) 22.5 kg/m2 Results Test Acquired Date Facility Test Result H/L Range Note Basic Metabolic Panel 02/24/2021 [facility] Practice Management Consultant: [place] [address] [phone] Glucose 96 mg/dL 74 - 99 1 [...] 60 mL/min >60 2 Lipid Profile 02/24/2021 [facility] , Practice Management Consultant: Dr Michael Bullock [place] [id number] [phone] Cholesterol 184 mg/dL 131 - 200 Triglycerides 45 mg/dL 30 - 150 HDL Cholesterol 99 mg/dL High 35 - 60 LDL (Calculated) 76 CALC 50 - 159 Laboratory test finding 02/24/2021 [facility], Practice Management Consultant: Dr Michael Bullock [place] [id number] [phone] Creatine Kinase(CK) 87 U/L 26 - 192 Basic Metabolic Panel 01/28/2021 [facility] Practice Management Consultant: Dr Michael Bullock [place] [id number] [phone] Glucose 137 mg/dL High 74 - 99 [...] mL/min >60 4 Laboratory test finding 01/28/2021 [facility], Practice Management Consultant: Dr [place] [address] [phone] Vitamin D 25-Hydroxy 54.0 ng/ml 24.0 - 80.0 5 Basic Metabolic Panel 01/15/2021 [facility] Practice Management Consultant: [place] [address] [phone] Glucose 97 mg/dL 74 - 99 6 [...] mL/min >60 7 Basic Metabolic Panel 01/07/2021 [facility] Practice Management Consultant: [place] [address] [phone] Glucose 132 mg/dL High 74 - 99 [...] mL/min >60 9 Basic Metabolic Panel 12/17/2020 [facility] Practice Management Consultant: [place] [address] [phone] Glucose 148 mg/dL High 74 - 99 [...] mL/min >60 11 Laboratory test finding 12/17/2020 [facility] [address] [place] [address] [phone] Genital Culture FULL REPORT IN L <SEE NOTE> Normal 12 Complete Blood Count 12/03/2020 [facility] Practice Management Consultant: [place] [address] [phone] WBC 6.5 x10*3/UL 4.1 - 10.9 RBC [...] 2.0 - 7.8 Ua Dipstick Only 12/03/2020 [facility] , Practice Management Consultant: [place] [address] [phone] Urine Color YELLOW Yellow Urine Appearance CLOUDY Abnormal Clear Urine PH 8.0 units 5.0 - 9.0 Urine Specific [place] 1.010 1.005 - 1.030 Urine Leukocytes LARGE Abnormal Negative Urine Blood NEGATIVE Negative Urine Protein NEGATIVE Negative -Trace Urine Glucose NEGATIVE mg/dL Negative Urine Nitrite NEGATIVE Negative Urine Ketone NEGATIVE mg/dL Negative Urine Bilirubin NEGATIVE Negative Urine Urobilinogen 0.2 mg/dL 0.2 - 1.0 Laboratory test finding 12/03/2020 [facility], Practice Management Consultant: [place] [address] [phone] Thyroid Stimulating Hormone 2.77 uIU/mL 0.3 6 - 3.74 Lipid Profile 12/03/2020 [facility] Practice Management Consultant: [place] [address] [phone] Cholesterol 166 mg/dL 131 - 200 Triglycerides 44 mg/dL 30 - 150 HDL Cholesterol 111 mg/dL High 35 - 60 LDL (Calculated) 46 CALC Low 50 - 159 Comprehensive Chem Profile 12/03/2020 [facility] Practice Management Consultant: Dr Michael Bullock [place], [place] [id number] [phone] Glucose 104 mg/dL High 74 - 99 [...] mL/min >60 15 Laboratory test finding 12/03/2020 [facility] Practice Management Consultant: Dr Michael Funglogg [place], [place] [id number] [phone] Magnesium 1.8 mg/dL 1.8 - 2.4 Creatine Kinase(CK) 88 U/L 26 - 192 Xray 11/25/2020 [facility] [address], [place] [id number] [phone] Dexa/Bone Density <pending> 3D Bi-Lateral Mammogram <pending> Laboratory test finding 10/17/2020 [facility] [address] [place] [address] [phone] Genital Culture FULL REPORT IN L <SEE NOTE> Normal 16 1 NOTE: LYTES VERIFIED 100-125 mg/dL PRE-DIABETES/FASTING >126 mg/dL DIABETES/FASTING 2 CHRONIC KIDNEY DISEASE STAGI NG PER NKF STAGE I & II GFR >= 60 NORMAL TO MILDLY DECREASED STAGE III GFR 30-59 MODERATELY DECREASED STAGE IV GFR 15-29 SEVERELY DECREASED STAGE V GFR <15 VERY LITTLE GFR LEFT ESRD GFR <15 ON ROCK SINGER 3 100-125 mg/dL PRE-DIABET ES/FASTING >126 mg/dL DIABETES/FASTING 4 CHRONIC KIDNEY DISEASE STAGI NG PER NKF STAGE I & II GFR >= 60 NORMAL TO MILDLY DECREASED STAGE III GFR 30-59 MODERATELY DECREASED STAGE IV GFR 15-29 SEVERELY DECREASED STAGE V GFR <15 VERY LITTLE GFR LEFT ESRD GFR <15 ON ROCK SINGER 5 This test was performed usin [employer] Vitamin D immunoassay kit. Values obtained with [...] LITTLE GFR LEFT ESRD GFR <15 ON ROCK SINGER 8 100-125 mg/dL PRE-DIABET ES/FASTING >126 mg/dL DIABETES/FASTING 9 CHRONIC KIDNEY DISEASE STAGI NG PER NKF STAGE I & II GFR >= 60 NORMAL TO MILDLY DECREASED STAGE III GFR 30-59 MODERATELY DECREASED STAGE IV GFR 15-29 SEVERELY DECREASED STAGE V GFR <15 VERY LITTLE GFR LEFT ESRD GFR <15 ON ROCK SINGER 10 100-125 mg/dL PRE-DIABET ES/FASTING >126 mg/dL DIABETES/FASTING 11 CHRONIC KIDNEY DISEASE STAGI NG PER NKF STAGE I & II GFR >= 60 NORMAL TO MILDLY DECREASED STAGE III GFR 30-59 MODERATELY DECREASED STAGE IV GFR 15-29 SEVERELY DECREASED STAGE V GFR <15 VERY LITTLE GFR LEFT ESRD GFR <15 ON ROCK SINGER 12 FULL REPORT IN LAB NOTES (eC [...] LITTLE GFR LEFT ESRD GFR <15 ON ROCK SINGER 16 FULL REPORT IN LAB NOTES (eC W and Medent). NORMAL LIYAH PRESENT ORGANISM 1: YEAST LIKE ORGANISM QUANTITY OF GROWTH FEW ORGANISM 1: YEAST LIKE ORGANISM Procedures Date Code Description Status 01/28/2021 12401 Office/Outpatient Established Mo d MDM 30-39 Min Completed 01/07/2021 24854 Office/Outpatient Established Mo d MDM 30-39 Min Completed 12/17/2020 32147 Office/Outpatient Established Mo d MDM 30-39 Min Completed 12/17/2020 [id number] Bone Mineral Density Test Comple king 12/04/2020 86373 Office/Outpatient Established Mo d MDM 30-39 Min Completed 11/25/2020 [id number] Mammogram Completed 10/17/2020 07854 Office/Outpatient Established Lo w MDM 20-29 Min Completed 11/23/2019 [id number] Mammogram Completed 09/27/2018 [id number] Mammogram Completed 09/27/2018 [id number] Bone Mineral Density Test Comple king 01/10/2018 [id number] Diabetic Retinal Eye Exam Comple king 12/22/2017 [id number] Diabetic Retinal Eye Exam Comple king 08/24/2017 [id number] Mammogram Completed 09/22/2016 [id number] Bone Mineral Density Test Comple king 08/13/2016 [id number] Mammogram Completed 02/05/2015 [id number] Mammogram Completed 12/20/2014 [id number] Colonoscopy Completed 11/29/2014 [id number] Mammogram Completed 02/01/2014 [id number] Mammogram Completed 02/01/2014 859204521 Bone Mineral Density Test Comple king 01/25/2013 [id number] Mammogram Completed 01/13/2012 [id number] Mammogram Completed 01/13/2012 [id number] Bone Mineral Density Test Comple king 12/11/2010 [id number] Mammogram Completed 12/25/2009 [id number] Bone Mineral Density Test Comple king 10/26/2007 [id number] Colonoscopy Completed 07/13/2003 [id number] Mammogram Completed Medical Devices Description No Information Available Encounters Type Date Location Provider Dx Diagnosis Office Visit 01/28/2021 1:45p [facility] M.D. I10 Essential (primary) hyperten jana E87.1 Hypo-osmolality and hyponatr emia N76.0 Acute vaginitis N81.10 Cystocele, unspecified F41.9 Anxiety disorder, unspecifie d K22.70 Enriquez's esophagus without dysplasia M81.0 Age-related osteoporosis w/o current pathological fracture Office Visit 01/07/2021 2:45p [facility] M.D. N76.0 Acute vaginitis F41.9 Anxiety disorder, unspecifie d G25.81 Restless legs syndrome E87.1 Hypo-osmolality and hyponatr emia I10 Essential (primary) hyperten jana K59.00 Constipation, unspecified K22.70 Enriquez's esophagus without dysplasia Office Visit 12/17/2020 [facility]p [facility] N76.0 Acute vaginitis F41.9 Anxiety disorder, unspecifie d E87.1 Hypo-osmolality and hyponatr emia I10 Essential (primary) hyperten jana K59.00 Constipation, unspecified K22.70 Enriquez's esophagus without dysplasia G25.81 Restless legs syndrome Office Visit 12/04/2020 8:45a [facility] N76.0 Acute vaginitis F41.9 Anxiety disorder, unspecifie d I10 Essential (primary) hyperten jana E87.1 Hypo-osmolality and hyponatr emia K59.00 Constipation, unspecified K22.70 Enriquez's esophagus without dysplasia E78.00 Pure hypercholesterolemia, u nspecified R73.09 Other abnormal glucose G25.81 Restless legs syndrome Office Visit 10/17/2020 1:30p [facility] N76.0 Acute vaginitis [...] contreras M.D. 12/04/2020 F41.9 Anxiety disorder, unspecified Ju lie M. Jony, M.D. 12/04/2020 I10 Essential (primary) hypertension Marina [...] Borges M.D. Plan of Treatment Future Appointment(s):* 02/25/2021 1:00 pm - Marina Borges M.D. at [facility] * 03/11/2021 8:00 am - Marina Borges M.D. at [facility] 01/28/2021 - Marina Borges M.D.* [...]
--- OUTSIDE RECORDS SUMMARY | 2021-03-06 06:15 | CCD | Continuity of Care Document ---
Author Author Richa ESCALERA Organization Unknown Address [address] [place] [address] Phone [phone] Care Team Providers Care Tube Turner Name Role Phone Marina Borges MD [facility] [phone] Problems Description No Information Available Social History Type Date Description Comments Sex Unknown Tobacco Use Start: Unknown Never Smoked Cigarettes ETOH Use Non-smoker, Occasional Drinker, Non-drug User Tobacco Use Start: Unknown Patient has never smoked Smoking Status Reviewed: 02/11/21 Patient has never smoked Exercise Type/Frequency Exercises regularly Allergies and adverse reactions Active Allergies Criticality Reaction | Severity Comments Date shrimp Unable to assess criticality 05/22/2020 sulfa Unable to assess criticality 05/22/2020 Penicillin V Unable to assess criticality 05/22/2020 Compazine Unable to assess criticality 05/22/2020 Medications Active Medications SIG Qnty Indications Ordering Provide r Date Clobetasol Propionate E 0.05% Crea m apply to affected area twice a day 45grams R10.2 Sugar Escalera MD 1 Fluconazole 150mg Tablets 1 by mouth now and one tomorrow 2tabs B37.3 Sugar Escalera MD 02/24/2021 Metronidazole 500mg Tablets one tab by mouth twice a day x 7 days 14tabs N76.0 Sugar Escalera MD Trimo-Syed 0.025-0.01% Gel use vaginally as directed 113.400gm N76.0 Sugar Escalera MD 12/10/2020 Metronidazole 500mg Tablets one tab by mouth twice a day x 7 days 14tabs N76.0 Sugar Escalera MD Vitamin B12 TR 1000mcg Tablets ER Unknown Fish Oil 1000mg Capsules Unknown Magnesium 500mg Tablets 1 Tab Daily Unknown Calcium Citrate + D3 [id number] Tablets Unknown Potassium Chloride ER 10Meq Capsules ER Unknown Omeprazole 20mg Capsules DR 1 by mouth 2x/ day Unknown Nubia Allergy 60mg Tablets one by mouth daily as needed for allergy symptoms Unknown Losartan Potassium 100mg Tablets 1 Tab Daily Unknown Amlodipine Besylate 2.5mg Tablets 1 Tab AT Bedtime Unknown Fluticasone Propionate 50mcg/Act Suspension apply a very thin coat to groin area 2x/day as needed Unknown Restasis 0.05% Emulsion twice a day Unknown Estridiol 0.1 MG Cream Insert1 GM. Vaginally 2 Times A Week Unknown Buspirone HCL 15mg Tablets 1 Tab 3 Times Daily prn Unknown Metamucil 28.3% Powder 1-2 TBLS.Every Morning Unknown Levocetirizine Dihydrochloride 5mg Tablets 1 Tab AT Bedtime Unknown Lipitor 20mg Tablets 1 Tab Da adithya Unknown Saline Nasal [place] 0.65% Solution Unknown Coq10 200mg Capsules Every Da y Unknown Multivitamin Adult Tablets 1 by mouth every day Unknown Immunizations Description No Information Available Vital Signs Date Vital Result Comment 02/24/2021 2:28pm BP Systolic 140 mmHg BP Diastolic 80 mmHg 05/22/2020 7:25am BP Systolic 162 mmHg BP Diastolic 78 mmHg Height 59.50 inches 4'11.50" Weight 117.00 lb BMI (Body Mass Index) 23.2 kg/m2 BSA (Body Surface Area) 1.48 m2 Results Description No Information Available Procedures Date Code Description Status 02/24/2021 47042 Office/Outpatient Established Lo w MDM 20-29 Min Completed 02/11/2021 48733 Office/Outpatient Established Mo d MDM 30-39 Min Completed 12/10/2020 19409 Office/Outpatient Established Lo w MDM 20-29 Min Completed 12/10/2020 19169 Irrigation Of Vagina And/Or Appl ication Of Medicament Completed 11/27/2020 75136 Office/Outpatient Established Lo w MDM 20-29 Min Completed 11/19/2020 59992 Pessary Fitting & In sertion Of Pessary/Intravaginal Support Constanza Completed 09/25/2020 34181 Office/Outpatient Established Briana w MDM 20-29 Min Completed Medical Devices Description No Information Available Encounters Type Date Location Provider Dx Diagnosis Office Visit 02/24/2021 2:30p [facility] service correspondent Sugar Escalera MD B3 7.3 Candidiasis of vulva and vagina R10.2 Pelvic and perineal pain Office Visit 02/11/2021 9:30a [facility] service correspondent Sugar Escalera MD N8 1.11 Cystocele, midline N81.6 Rectocele N81.2 Incomplete uterovaginal prol apse Office Visit 12/10/2020 11:00a [facility] service correspondent Sugar Escalera MD N7 6.0 Acute vaginitis N81.11 Cystocele, midline N81.6 Rectocele 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 Office Visit 11/27/2020 2:15p [facility] service correspondent Sugar Escalera MD N7 6.0 Acute vaginitis N81.11 Cystocele, midline N81.6 Rectocele Office Visit 09/25/2020 2:00p [facility] service correspondent Sugar Escalera MD N7 6.0 Acute vaginitis Assessments Date Code Description Provider 02/24/2021 B37.3 Candidiasis of vulva and vagina Sugar Escalera MD 02/24/2021 R10.2 Pelvic and perineal pain Sugar Escalera MD 02/11/2021 N81.11 Cystocele, midline Glendy Escalera i, MD 02/11/2021 N81.6 Rectocele Sugar Escalera 02/11/2021 N81.2 Incomplete uterovaginal prolapse Sugar Escalera MD 12/10/2020 N76.0 Acute vaginitis Sugar Escalera 12/10/2020 N81.11 Cystocele, midline Glendy Escalera i, MD 12/10/2020 N81.6 Rectocele Sugar Escalera 12/10/2020 N95.2 Postmenopausal atrophic vaginiti s Sugar Escalera MD 11/27/2020 N76.0 Acute vaginitis Sugar Escalera 11/27/2020 N81.11 Cystocele, midline Glendy Escalera i, MD 11/27/2020 N81.6 Rectocele Sugar Escalera 11/19/2020 N81.11 Cystocele, midline Glendy Escalera i, MD 11/19/2020 N81.6 Rectocele Sugar Escalera 11/19/2020 N81.2 Incomplete uterovaginal prolapse Sugar Escalera MD 11/19/2020 N95.2 Postmenopausal atrophic vaginiti s Sugar Escalera MD 09/25/2020 N76.0 Acute vaginitis Sugar Escalera Plan of Treatment Future Appointment(s):* 04/16/2021 12:00 pm - Sugar Escalera MD at [facility] service correspondent * 03/19/2021 10:00 am - Sugar Escalera MD at [facility] service correspondent * 03/06/2021 10:00 am - Sugar Escalera MD at [facility] 02/24/2021 - Sugar Escalera MD* B37.3 Candidiasis of vulva and vagina* New Medication:* Fluconazole 150 mg - 1 by mouth now and one tomorrow * R10.2 Pelvic and perineal pain* New Medication:* Clobetasol Propionate E 0.05 % - apply to affected area twice a day Functional Status Description No Information Available Mental Status Description No Information Available Referrals Description No Information Available
--- OUTSIDE RECORDS SUMMARY | 2021-03-06 06:15 | CCD | Continuity of Care Document ---
Author Author Richa ESCALERA Organization Unknown Address [address] [place] [address] Phone [phone] Care Team Providers Care Marketing And Communications Officer Name Role Phone Marina Borges MD [facility] [phone] Problems Description No Information Available Social History [...] Tab Daily Unknown Calcium Citrate + D3 [id number]-Fzmr Tablets Unknown Potassium Chloride ER 10Meq Capsules [...] 1 Tab Da adithya Unknown Saline Nasal [place] 0.65% Solution Unknown Coq10 200mg Capsules Every [...] Available Procedures Date Code Description Status 02/24/2021 86169 Office/Outpatient Established Lo w MDM 20-29 Min Completed 02/11/2021 55653 Office/Outpatient Established Mo d MDM 30-39 Min Completed 12/10/2020 46996 Office/Outpatient Established Lo w MDM 20-29 Min Completed 12/10/2020 96995 Irrigation Of Vagina And/Or Appl ication Of Medicament Completed 11/27/2020 64732 Office/Outpatient Established Lo w MDM 20-29 Min Completed 11/19/2020 19398 Pessary Fitting & In sertion Of Pessary/Intravaginal Support Constanza Completed 09/25/2020 95158 Office/Outpatient Established Briana w MDM 20-29 Min Completed Medical Devices Description No Information Available Encounters Type Date Location Provider Dx Diagnosis Office Visit 02/24/2021 2:30p [facility] goods [facility] Sugar Escalera MD B3 7.3 Candidiasis of vulva and vagina R10.2 Pelvic and perineal pain Office Visit 02/11/2021 9:30a [facility] piece goods clerk Sugar Escalera MD N8 1.11 Cystocele, midline N81.6 Rectocele N81.2 Incomplete uterovaginal prol apse Office Visit 12/10/2020 11:00a [facility] piece goods clerk Sugar Escalera MD N7 6.0 Acute vaginitis N81.11 Cystocele, midline N81.6 Rectocele 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 Office Visit 11/27/2020 2:15p [facility] piece goods clerk Sugar Escalera MD N7 6.0 Acute vaginitis N81.11 Cystocele, midline N81.6 Rectocele Office Visit 09/25/2020 2:00p [facility] piece goods clerk Sugar Escalera MD N7 6.0 Acute vaginitis [...] Future Appointment(s):* 04/16/2021 12:00 pm - Sugar Escalrea MD at [facility] piece goods clerk * 03/19/2021 10:00 am - Sugar Escalera MD at [facility] piece goods clerk * 03/06/2021 10:00 am - Sugar Escalera MD at [facility] [place] 02/24/2021 - Sugar Escalera MD* B37.3 [...]
--- OUTSIDE RECORDS SUMMARY | 2021-03-06 06:15 | CCD | Continuity of Care Document ---
Author Author Richa Borges M.D. Organization Unknown Address [address] [facility] [address] [place] [address] Phone [phone] Care Team Providers Care Nuclear Plant Technical Advisor Name Role Phone Marina Borges MD AUTM [phone] Farrah Henderson MD AUTM [phone] [facility] AUTM [phone] [facility] AUTM [phone] Oanh Melvin MD AUTM [phone] Samy Cardoza MD AUTM [phone] Ry Benitez DO AUTM [phone] Rama Shelton AUTM [phone] Problems Active Problems Provider Date Enriquez's esophagus [...] Borges M.D. 06/29/2013 Calcium Citrate + D [id number] Tablets 1 po qd 60tabs Marina Borges M.D. 11/14 Multivital Tablets 1 po qd Marina Borges M.D. 01/25/2012 Fish Oil Double Strength 1200mg Ca psules 1 po qd Marina Borges M.D. 01/25/20 12 Co Q10 200mg Capsules 1 by mouth every day Marina Borges M.D. 01/25/20 12 Saline Nasal [place] 0.65% Solution 6-8x/d as directed Marina Borges [...] CPT Code Status Date Vaccine Lot # [id number] Given 02/13/2020 Influenza Vaccin e Quadrivalent Preser/Antibiotic Free Im Use [id number] 19703 Given 02/16/2019 Influenza Vaccin e Quadrivalent Preser/Antibiotic Free Im Use [id number] 40000 Given 02/24/2018 Influenza Virus Vaccine, Quadrivalent (Cciiv4), Derived From 0 Given 2017 Influenza Vaccin e Quadrivalent Preser/Antibiotic Free Im Use [id number] U-PneuC Given 02/11/2017 Prevnar 13 [id number] Given 08/11/2016 Adacel- Tetanus Diphtheria P ertussis [id number] Q2037 Given 03/10/2016 Fluvirin Virus Vaccine 42212 01 Q2037 Given 04/04/2015 Fluvirin Virus Vaccine 92116 01 Q2037 Given 03/01/2014 Fluvirin Virus Vaccine 07417 21 Q2037 Given 03/28/2013 Fluvirin Virus Vaccine 02752 01 Q2037 Given 02/23/2012 Fluvirin Virus Vaccine 90782 01 43188 Given 01/25/2012 Pneumovax 23 [id number] Q2037 Given 03/10/2011 Fluvirin Virus Vaccine 64143 Given 02/17/2010 Influenza Virus Vaccine 12380 Refused 08/11/2018 Zoster Vaccine 60438 Refused 08/10/2017 Zoster Vaccine Vital Signs Date [...] H/L Range Note Coronavirus 2019 Nasopharygeal 03/01/2021 [place] [address] [phone] Coronavirus 2019 Nasopharygeal ASSAY INFORMATIO <SEE N OTE> 1 Laboratory test finding 02/24/2021 [facility], Cell Manager: Dr Michael Mcdaniels [place] [id number] [phone] Creatine Kinase(CK) 87 U/L 26 - 192 Basic Metabolic Panel 02/24/[address] [facility], Cell Manager: Dr Michael Mcdaniels [place] [id number] [phone] Glucose 96 mg/dL 74 - 99 2 [...] 60 mL/min >60 3 Lipid Profile 02/24/2021 [facility] , Cell Manager: Dr Michael Mcdaniels [place] [id number] [phone] Cholesterol 184 mg/dL 131 - 200 Triglycerides 45 mg/dL 30 - 150 HDL Cholesterol 99 mg/dL High 35 - 60 LDL (Calculated) 76 CALC 50 - 159 Basic Metabolic Panel 01/28/[address] [facility], Cell Manager: Dr Michael Mcdaniels [place] [id number] [phone] Glucose 137 mg/dL High 74 - 99 [...] mL/min >60 5 Laboratory test finding 01/28/2021 [facility], Cell Manager: Dr Michael Mcdaniels [place] [id number] [phone] Vitamin D 25-Hydroxy 54.0 ng/ml 24.0 - 80.0 6 Basic Metabolic Panel 01/15/[address] [facility], Cell Manager: Dr Michael Bullock [place], [place] [id number] [phone] Glucose 97 mg/dL 74 - 99 7 [...] mL/min >60 8 Basic Metabolic Panel 01/07/[address] [facility], Cell Manager: Dr Michael Bullock [place], [place] [id number] [phone] Glucose 132 mg/dL High 74 - 99 [...] mL/min >60 10 Laboratory test finding 12/17/2020 [facility] [address] [place], [place] [id number] [phone] Genital Culture FULL REPORT IN L <SEE NOTE> Normal 11 Basic Metabolic Panel 12/17/[address] [facility], Cell Manager: Dr Michael Bullock [place], [place] [id number] [phone] Glucose 148 mg/dL High 74 - 99 [...] mL/min >60 13 Complete Blood Count 12/03/2020 [facility] Cell Manager: [place] [address] [phone] WBC 6.5 x10*3/UL 4.1 - 10.9 RBC [...] 2.0 - 7.8 Laboratory test finding 12/03/2020 [facility] saab Cell Manager: [place] [address] [phone] Magnesium 1.8 mg/dL 1.8 - 2.4 Creatine Kinase(CK) 88 U/L 26 - 192 Comprehensive Chem Profile 12/03/2020 [facility] Cell Manager: [place] [address] [phone] Glucose 104 mg/dL High 74 - 99 [...] 60 mL/min >60 16 Lipid Profile 12/03/2020 [facility] , Cell Manager: [place] [address] [phone] Cholesterol 166 mg/dL 131 - 200 Triglycerides 44 mg/dL 30 - 150 HDL Cholesterol 111 mg/dL High 35 - 60 LDL (Calculated) 46 CALC Low 50 - 159 Laboratory test finding 12/03/2020 [facility], Cell Manager: [place] [address] [phone] Thyroid Stimulating Hormone 2.77 uIU/mL 0.3 6 - 3.74 Ua Dipstick Only 12/03/2020 [facility] , Cell Manager: [place] [address] [phone] Urine Color YELLOW Yellow Urine Appearance CLOUDY Abnormal Clear Urine PH 8.0 units 5.0 - 9.0 Urine Specific [place] 1.010 1.005 - 1.030 Urine Leukocytes LARGE Abnormal Negative Urine Blood NEGATIVE Negative Urine Protein NEGATIVE Negative -Trace Urine Glucose NEGATIVE mg/dL Negative Urine Nitrite NEGATIVE Negative Urine Ketone NEGATIVE mg/dL Negative Urine Bilirubin NEGATIVE Negative Urine Urobilinogen 0.2 mg/dL 0.2 - 1.0 Xray 11/25/2020 [facility] [address] [place] [address] [phone] Dexa/Bone Density <pending> 3D Bi-Lateral Mammogram <pending> Laboratory test finding 10/17/2020 [facility] [address] [place] [address] [phone] Genital Culture FULL REPORT IN L <SEE NOTE> Normal 17 1 ASSAY INFORMATION: Real Time RT-PCR NOTE: The COVID-19 assay has been cleared by the U.S. Food and Drug Administration under the Emergency Use Authorization (EUA). [facility] are designated as high complexity laboratories by [...] LITTLE GFR LEFT ESRD GFR <15 ON [employer]OPE[employer] WORK[employer] 4 100-125 mg/dL PRE-DIABET ES/FASTING >126 mg/dL DIABETES/FASTING 5 CHRONIC KIDNEY DISEASE STAGI NG PER NKF STAGE I & II GFR >= 60 NORMAL TO MILDLY DECREASED STAGE III GFR 30-59 MODERATELY DECREASED STAGE IV GFR 15-29 SEVERELY DECREASED STAGE V GFR <15 VERY LITTLE GFR LEFT ESRD GFR <15 ON [employer] WORKER 6 This test was performed [employer] Vitamin D immunoassay kit. Values obtained with [...] LITTLE GFR LEFT ESRD GFR <15 ON [employer] WORKER 9 100-125 mg/dL PRE-DIABET ES/FASTING >126 mg/dL DIABETES/FASTING 10 CHRONIC KIDNEY DISEASE STAGI NG PER NKF STAGE I & II GFR >= 60 NORMAL TO MILDLY DECREASED STAGE III GFR 30-59 MODERATELY DECREASED STAGE IV GFR 15-29 SEVERELY DECREASED STAGE V GFR <15 VERY LITTLE GFR LEFT ESRD GFR <15 ON [employer] WORKER 11 FULL REPORT IN LAB NOTES (eC [...] LITTLE GFR LEFT ESRD GFR <15 ON [employer] WORKER 14 100-125 mg/dL PRE-DIABET ES/FASTING >126 mg/dL DIABETES/FASTING 15 NOTE: LYTES VERIFIED 16 CHRONIC KIDNEY DISEASE STAGI NG PER NKF STAGE I & II GFR >= 60 NORMAL TO MILDLY DECREASED STAGE III GFR 30-59 MODERATELY DECREASED STAGE IV GFR 15-29 SEVERELY DECREASED STAGE V GFR <15 VERY LITTLE GFR LEFT ESRD GFR <15 ON [employer] L[employer] WORKER 17 FULL REPORT IN LAB NOTES (eC [facility] and [facility]). NORMAL LIYAH PRESENT ORGANISM 1: YEAST LIKE ORGANISM QUANTITY OF GROWTH FEW ORGANISM 1: YEAST LIKE ORGANISM Procedures Date Code Description Status 01/28/2021 99225 Office/Outpatient Established Mo d MDM 30-39 Min Completed 01/07/2021 83496 Office/Outpatient Established Mo d MDM 30-39 Min Completed 12/17/2020 79129 Office/Outpatient Established Mo d MDM 30-39 Min Completed 12/17/2020 [id number] Bone Mineral Density Test Comple king 12/04/2020 43911 Office/Outpatient Established Mo d MDM 30-39 Min Completed 11/25/2020 [id number] Mammogram Completed 10/17/2020 90198 Office/Outpatient Established Lo w MDM 20-29 Min Completed 11/23/2019 [id number] Mammogram Completed 09/27/2018 [id number] Mammogram Completed 09/27/2018 [id number] Bone Mineral Density Test Comple king 01/10/2018 [id number] Diabetic Retinal Eye Exam Comple king 12/22/2017 900310527 Diabetic Retinal Eye Exam Comple [facility] 08/24/2017 [id number] Mammogram Completed 09/22/2016 [id number] Bone Mineral Density Test Comple king 08/13/2016 [id number] Mammogram Completed 02/05/2015 [id number] Mammogram Completed 12/20/2014 39851054 Colonoscopy Completed 11/29/2014 [id number] Mammogram Completed 02/01/2014 [id number] Mammogram Completed 02/01/2014 [id number] Bone Mineral Density Test Comple king 01/25/2013 [id number] Mammogram Completed 01/13/2012 [id number] Mammogram Completed 01/13/2012 120198705 Bone Mineral Density Test Comple king 12/11/2010 [id number] Mammogram Completed 12/25/2009 [id number] Bone Mineral Density Test Comple [facility] 10/26/2007 73175098 Colonoscopy Completed 07/13/2003 [id number] Mammogram Completed Medical Devices Description No Information Available Encounters Type Date Location Provider Dx Diagnosis Office Visit 01/28/2021 1:45p [facility] [place] [facility] M.[facility] I10 Essential (primary) hyperten jana E87.1 Hypo-osmolality and hyponatr emia N76.0 Acute vaginitis N81.10 Cystocele, unspecified F41.9 Anxiety disorder, unspecifie d K22.70 Enriquez's esophagus without dysplasia M81.0 Age-related osteoporosis w/o current pathological fracture Office Visit 01/07/2021 2:45p [place] [facility] M.D. N76.0 Acute vaginitis F41.9 Anxiety disorder, unspecifie d G25.81 Restless legs syndrome E87.1 Hypo-osmolality and hyponatr emia I10 Essential (primary) hyperten jana K59.00 Constipation, unspecified K22.70 Enriquez's esophagus without dysplasia Office Visit 12/17/2020 1:00p [facility] [place] [facility] M.D. N76.0 Acute vaginitis F41.9 Anxiety disorder, unspecifie d E87.1 Hypo-osmolality and hyponatr emia I10 Essential (primary) hyperten jana K59.00 Constipation, unspecified K22.70 Enriquez's esophagus without dysplasia G25.81 Restless legs syndrome Office Visit 12/04/2020 8:45a [facility] [place] [facility] M.D. N76.0 Acute vaginitis F41.9 Anxiety disorder, unspecifie d I10 Essential (primary) hyperten jana E87.1 Hypo-osmolality and hyponatr emia K59.00 Constipation, unspecified K22.70 Enriquez's esophagus without dysplasia E78.00 Pure hypercholesterolemia, u nspecified R73.09 Other abnormal glucose G25.81 Restless legs syndrome Office Visit 10/17/2020 1:30p [facility] [place] [facility] M.D. N76.0 Acute vaginitis F41.9 Anxiety disorder, unspecifie d Assessments Date Code Description Provider 02/24/2021 E78.00 Pure hypercholesterolemia, unspe cified Marina [...] Borges M.D. 01/07/2021 E87.1 Hypo-osmolality and hyponatremia Marnia Borges M.D. 01/07/2021 I10 Essential (primary) hypertension [...] M.D. 12/04/2020 K22.70 Enriquez's esophagus without dysp geovanyia Marina Borges M.D. 12/04/2020 E78.00 Pure hypercholesterolemia, [...] 8:00 am - [facility] 01/28/2021 - Marina Borges M.D.* I10 [...]
--- OUTSIDE RECORDS SUMMARY | 2021-03-06 06:15 | CCD | Continuity of Care Document ---
Author Author Richa ESCALERA Organization Unknown Address [address] [place] [address] Phone [phone] Care Team Providers Care Brand Marketing Manager Name Role Phone Marina Borges MD [facility] [phone] Problems Description No Information Available Social History [...] Tab Daily Unknown Calcium Citrate + D3 [id number] Tablets Unknown Potassium Chloride ER 10Meq Capsules [...] 1 Tab Da adithya Unknown Saline Nasal [place] 0.65% Solution Unknown Coq10 200mg Capsules Every [...] Available Procedures Date Code Description Status 02/24/2021 58739 Office/Outpatient Established Lo w MDM 20-29 Min Completed 02/11/2021 25803 Office/Outpatient Established Mo d MDM 30-39 Min Completed 12/10/2020 02344 Office/Outpatient Established Lo w MDM 20-29 Min Completed 12/10/2020 76576 Irrigation Of Vagina And/Or Appl ication Of Medicament Completed 11/27/2020 39106 Office/Outpatient Established Lo w MDM 20-29 Min Completed 11/19/2020 64741 Pessary Fitting & In sertion Of Pessary/Intravaginal Support Constanza Completed 09/25/2020 26007 Office/Outpatient Established Briana w MDM 20-29 Min Completed Medical Devices Description No Information Available Encounters Type Date Location Provider Dx Diagnosis Office Visit 02/24/2021 2:30p [facility] Sugar Escalera MD B3 7.3 Candidiasis of vulva and vagina R10.2 Pelvic and perineal pain Office Visit 02/11/2021 9:30a [facility] Sugar Escalera MD N8 1.11 Cystocele, midline N81.6 Rectocele N81.2 Incomplete uterovaginal prol apse Office Visit 12/10/2020 11:00a [facility] [employer] [facility] Sugar Escalera MD N7 6.0 Acute vaginitis N81.11 Cystocele, midline N81.6 Rectocele 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 Office Visit 11/27/2020 2:15p [facility] Sugar Escalera MD N7 6.0 Acute vaginitis N81.11 Cystocele, midline N81.6 Rectocele Office Visit 09/25/2020 2:00p [facility] [employer] [facility] Sugar Escalera MD N7 6.0 Acute vaginitis [...] Escalera i, MD 11/19/2020 N81.6 Rectocele Sugar sEcalera 11/19/2020 N81.2 Incomplete uterovaginal prolapse Sugar Escalera MD 11/19/2020 N95.2 Postmenopausal atrophic vaginiti s Sugar Escalera MD 09/25/2020 N76.0 Acute vaginitis Sugar Escalera Plan of Treatment Future Appointment(s):* 04/16/2021 12:00 pm - Sugar Escalera MD at [facility] glove brusher * 03/19/2021 10:00 am - Sugar Escalera MD at [facility] glove brusher * 03/06/2021 10:00 am - Sugar Escalera [...]
--- OUTSIDE RECORDS SUMMARY | 2021-03-06 06:15 | CCD | Continuity of Care Document ---
Author Author Lab Schedule[facility] Organization Unknown Address [address] [place] [address] Phone Unavailable Care Team Providers Care Police Artist Name Role Phone Marina Borges MD AUTM [phone] Farrah Henderson MD AUTM [phone] [facility] AUTM [phone] [facility] AUTM [phone] Oanh Melvin MD AUTM [phone] Samy Cardoza MD AUTM [phone] Ry Benitez DO AUTM [phone] Rama Shelton AUTM [phone] Problems Active Problems Provider Date Enriquez's esophagus [...] Borges M.D. 06/29/2013 Calcium Citrate + D [id number] Tablets 1 po qd 60tabs Marina Borges M.D. 11/14 Multivital Tablets 1 po qd Marina Borges M.D. 01/25/2012 Fish Oil Double Strength 1200mg Ca psules 1 po qd Marina Borges M.D. 01/25/20 12 Co Q10 200mg Capsules 1 by mouth every day Marina Borges M.D. 01/25/20 12 Saline Nasal [place] 0.65% Solution 6-8x/d as directed Marina Borges M.D. 04/29/20 11 Levocetirizine Dihydrochloride 5mg Tablets take one tablet by mouth every zhen Marina Borges M.D. History Medications Fluconazole 100mg Tablets 1 by mouth every day x7 d 7tabs Marina Borges M.D. 12/18/19 21 - 01/07/2021 Pessary Merida Marina Borges M.D. [...] CPT Code Status Date Vaccine Lot # [id number] Given 02/13/2020 Influenza Vaccin e Quadrivalent Preser/Antibiotic Free Im Use [id number] 08275 Given 02/16/2019 Influenza Vaccin e Quadrivalent Preser/Antibiotic Free Im Use 510504 41992 Given 02/24/2018 Influenza Virus Vaccine, Quadrivalent (Cciiv4), Derived From 3 Given 2017 Influenza Vaccin e Quadrivalent Preser/Antibiotic Free Im Use [id number] U-PneuC Given 02/11/2017 Prevnar 13 55345 Given 08/11/2016 Adacel- Tetanus Diphtheria P ertussis [id number] Q2037 Given 03/10/2016 Fluvirin Virus Vaccine 16063 01 Q2037 Given 04/04/2015 Fluvirin Virus Vaccine 61841 01 Q2037 Given 03/01/2014 Fluvirin Virus Vaccine 41501 21 Q2037 Given 03/28/2013 Fluvirin Virus Vaccine 43125 01 Q2037 Given 02/23/2012 Fluvirin Virus Vaccine 27999 01 26327 Given 01/25/2012 Pneumovax 23 [id number] Q2037 Given 03/10/2011 Fluvirin Virus Vaccine 92016 Given 02/17/2010 Influenza Virus Vaccine 38107 Refused 08/11/2018 Zoster Vaccine 29534 Refused 08/10/2017 Zoster Vaccine Vital Signs Date [...] H/L Range Note Basic Metabolic Panel 02/24/2021 [facility] Lens Generator: [place] [address] [phone] Glucose 96 mg/dL 74 - 99 1 [...] 60 mL/min >60 2 Lipid Profile 02/24/2021 [facility] , Lens Generator: Dr [place] [address] [phone] Cholesterol 184 mg/dL 131 - 200 Triglycerides 45 mg/dL 30 - 150 HDL Cholesterol 99 mg/dL High 35 - 60 LDL (Calculated) 76 CALC 50 - 159 Laboratory test finding 02/24/2021 [facility], Lens Generator: Dr Michael [place] [address] [phone] Creatine Kinase(CK) 87 U/L 26 - 192 Basic Metabolic Panel 01/28/2021 [facility] Lens Generator: Dr Michael Bullock [place] [id number] [phone] Glucose 137 mg/dL High 74 - 99 [...] mL/min >60 4 Laboratory test finding 01/28/2021 [facility], Lens Generator: Dr [place] [address] [phone] Vitamin D 25-Hydroxy 54.0 ng/ml 24.0 - 80.0 5 Basic Metabolic Panel 01/15/2021 [facility] Lens Generator: Dr Michael [place] [address] [phone] Glucose 97 mg/dL 74 - 99 6 [...] mL/min >60 7 Basic Metabolic Panel 01/07/2021 [facility] Lens Generator: [place] [address] [phone] Glucose 132 mg/dL High 74 - 99 [...] mL/min >60 9 Basic Metabolic Panel 12/17/2020 [facility] Lens Generator: [place] [address] [phone] Glucose 148 mg/dL High 74 - 99 [...] mL/min >60 11 Laboratory test finding 12/17/2020 [facility] [address] [place] [address] [phone] Genital Culture FULL REPORT IN L <SEE NOTE> Normal 12 Complete Blood Count 12/03/2020 [facility] Lens Generator: [place] [address] [phone] WBC 6.5 x10*3/UL 4.1 - 10.9 RBC [...] 2.0 - 7.8 Ua Dipstick Only 12/03/2020 [facility] , Lens Generator: Dr [place] [address] [phone] Urine Color YELLOW Yellow Urine Appearance CLOUDY Abnormal Clear Urine PH 8.0 units 5.0 - 9.0 Urine Specific Soldier 1.010 1.005 - 1.030 Urine Leukocytes LARGE Abnormal Negative Urine Blood NEGATIVE Negative Urine Protein NEGATIVE Negative -Trace Urine Glucose NEGATIVE mg/dL Negative Urine Nitrite NEGATIVE Negative Urine Ketone NEGATIVE mg/dL Negative Urine Bilirubin NEGATIVE Negative Urine Urobilinogen 0.2 mg/dL 0.2 - 1.0 Laboratory test finding 12/03/2020 [facility], Lens Generator: Dr [place] [address] [phone] Thyroid Stimulating Hormone 2.77 uIU/mL 0.3 6 - 3.74 Lipid Profile 12/03/2020 [facility] , Lens Generator: Dr Michael [place] [address] [phone] Cholesterol 166 mg/dL 131 - 200 Triglycerides 44 mg/dL 30 - 150 HDL Cholesterol 111 mg/dL High 35 - 60 LDL (Calculated) 46 CALC Low 50 - 159 Comprehensive Chem Profile 12/03/2020 [facility], Lens Generator: Dr Michael Bullock [place], [place] [id number] [phone] Glucose 104 mg/dL High 74 - 99 [...] mL/min >60 15 Laboratory test finding 12/03/2020 [facility]: Dr Michael Bullock [place], [place] [id number] [phone] Magnesium 1.8 mg/dL 1.8 - 2.4 Creatine Kinase(CK) 88 U/L 26 - 192 Xray 11/25/2020 [facility] [address] [place], [place] [id number] [phone] Dexa/Bone Density <pending> 3D Bi-Lateral Mammogram <pending> Laboratory test finding 10/17/2020 [facility] [address] [place] [address] [phone] Genital Culture FULL REPORT IN L <SEE NOTE> Normal 16 1 NOTE: LYTES VERIFIED 100-125 mg/dL PRE-DIABETES/FASTING >126 mg/dL DIABETES/FASTING 2 CHRONIC KIDNEY DISEASE STAGI NG PER NKF STAGE I & II GFR >= 60 NORMAL TO MILDLY DECREASED STAGE III GFR 30-59 MODERATELY DECREASED STAGE IV GFR 15-29 SEVERELY DECREASED STAGE V GFR <15 VERY LITTLE GFR LEFT ESRD GFR <15 ON CARDIAC EXERCISE PHYSIOLOGIST 3 100-125 mg/dL PRE-DIABET ES/FASTING >126 mg/dL DIABETES/FASTING 4 CHRONIC KIDNEY DISEASE STAGI NG PER NKF STAGE I & II GFR >= 60 NORMAL TO MILDLY DECREASED STAGE III GFR 30-59 MODERATELY DECREASED STAGE IV GFR 15-29 SEVERELY DECREASED STAGE V GFR <15 VERY LITTLE GFR LEFT ESRD GFR <15 ON CARDIAC EXERCISE PHYSIOLOGIST 5 This test was performed usin [employer] Vitamin D immunoassay kit. Values obtained with [...] LITTLE GFR LEFT ESRD GFR <15 ON CARDIAC EXERCISE PHYSIOLOGIST 8 100-125 mg/dL PRE-DIABET ES/FASTING >126 mg/dL DIABETES/FASTING 9 CHRONIC KIDNEY DISEASE STAGI NG PER NKF STAGE I & II GFR >= 60 NORMAL TO MILDLY DECREASED STAGE III GFR 30-59 MODERATELY DECREASED STAGE IV GFR 15-29 SEVERELY DECREASED STAGE V GFR <15 VERY LITTLE GFR LEFT ESRD GFR <15 ON CARDIAC EXERCISE PHYSIOLOGIST 10 100-125 mg/dL PRE-DIABET ES/FASTING >126 mg/dL DIABETES/FASTING 11 CHRONIC KIDNEY DISEASE STAGI NG PER NKF STAGE I & II GFR >= 60 NORMAL TO MILDLY DECREASED STAGE III GFR 30-59 MODERATELY DECREASED STAGE IV GFR 15-29 SEVERELY DECREASED STAGE V GFR <15 VERY LITTLE GFR LEFT ESRD GFR <15 ON CARDIAC EXERCISE PHYSIOLOGIST 12 FULL REPORT IN LAB NOTES (eC [...] LITTLE GFR LEFT ESRD GFR <15 ON CARDIAC EXERCISE PHYSIOLOGIST 16 FULL REPORT IN LAB NOTES (eC W and [employer]). NORMAL LIYAH PRESENT ORGANISM 1: YEAST LIKE ORGANISM QUANTITY OF GROWTH FEW ORGANISM 1: YEAST LIKE ORGANISM Procedures Date Code Description Status 01/28/2021 48572 Office/Outpatient Established Mo d MDM 30-39 Min Completed 01/07/2021 04658 Office/Outpatient Established Mo d MDM 30-39 Min Completed 12/17/2020 08289 Office/Outpatient Established Mo d MDM 30-39 Min Completed 12/17/2020 [id number] Bone Mineral Density Test Comple king 12/04/2020 44192 Office/Outpatient Established Mo d MDM 30-39 Min Completed 11/25/2020 [id number] Mammogram Completed 10/17/2020 63905 Office/Outpatient Established Lo w MDM 20-29 Min Completed 11/23/2019 [id number] Mammogram Completed 09/27/2018 [id number] Mammogram Completed 09/27/2018 [id number] Bone Mineral Density Test Comple king 01/10/2018 [id number] Diabetic Retinal Eye Exam Comple king 12/22/2017 063381410 Diabetic Retinal Eye Exam Comple king 08/24/2017 [id number] Mammogram Completed 09/22/2016 [id number] Bone Mineral Density Test Comple king 08/13/2016 [id number] Mammogram Completed 02/05/2015 18154538 Mammogram Completed 12/20/2014 56183728 Colonoscopy Completed 11/29/2014 [id number] Mammogram Completed 02/01/2014 [id number] Mammogram Completed 02/01/2014 [id number] Bone Mineral Density Test Comple king 01/25/2013 [id number] Mammogram Completed 01/13/2012 [id number] Mammogram Completed 01/13/2012 [id number] Bone Mineral Density Test Comple king 12/11/2010 [id number] Mammogram Completed 12/25/2009 [id number] Bone Mineral Density Test Comple king 10/26/2007 [id number] Colonoscopy Completed 07/13/2003 [id number] Mammogram Completed Medical Devices Description No Information Available Encounters Type Date Location Provider Dx Diagnosis Office Visit 01/28/2021 1:45p [facility] PK[facility]ha Borges M.D. I10 Essential (primary) hyperten jana E87.1 Hypo-osmolality and hyponatr emia N76.0 Acute vaginitis N81.10 Cystocele, unspecified F41.9 Anxiety disorder, unspecifie d K22.70 Enriquez's esophagus without dysplasia M81.0 Age-related osteoporosis w/o current pathological fracture Office Visit 01/07/2021 2:45p [facility] PKeesha Borges M.D. N76.0 Acute vaginitis F41.9 Anxiety disorder, unspecifie d G25.81 Restless legs syndrome E87.1 Hypo-osmolality and hyponatr emia I10 Essential (primary) hyperten jana K59.00 Constipation, unspecified K22.70 Enriquez's esophagus without dysplasia Office Visit 12/17/2020 1:00p [facility] N76.0 Acute vaginitis F41.9 Anxiety disorder, unspecifie d E87.1 Hypo-osmolality and hyponatr emia I10 Essential (primary) hyperten jana K59.00 Constipation, unspecified K22.70 Enriquez's esophagus without dysplasia G25.81 Restless legs syndrome Office Visit 12/04/2020 8:45a [facility] M.D. N76.0 Acute vaginitis F41.9 Anxiety disorder, unspecifie d I10 Essential (primary) hyperten jana E87.1 Hypo-osmolality and hyponatr emia K59.00 Constipation, unspecified K22.70 Enriquez's esophagus without dysplasia E78.00 Pure hypercholesterolemia, u nspecified R73.09 Other abnormal glucose G25.81 Restless legs syndrome Office Visit 10/17/2020 1:30p [facility] M.[facility]. N76.0 Acute vaginitis [...] M.D. 01/07/2021 K22.70 Enriquez's esophagus without dysp lasia Marina Borges M.D. 12/17/2020 N76.0 Acute vaginitis Marina contreras M.D. 12/17/2020 F41.9 Anxiety disorder, unspecified Nasreen Borges M.D. 12/17/2020 E87.1 Hypo-osmolality and hyponatremia Marina Borges M.D. 12/17/2020 I10 Essential (primary) hypertension Marina Borges M.D. 12/17/2020 K59.00 Constipation, unspecified Marina Borges M.D. 12/17/2020 K22.70 Enriquez's esophagus without dysp lasia Marina Borges M.D. 12/17/2020 G25.81 Restless legs [...] 8:00 am - Marina [facility] 01/28/2021 - Marina Borges [...]
--- OUTSIDE RECORDS SUMMARY | 2021-03-06 06:15 | CCD | Continuity of Care Document ---
Author Author Richa ESCALERA Organization Unknown Address [address] [place] [phone] Phone [phone] Care Team Providers Care Freelance Copywriter Name Role Phone Marina Borges MD [facility] [phone] Problems Description No Information Available Social History [...] Tab Daily Unknown Calcium Citrate + D3 [id number]-Afjq Tablets Unknown Potassium Chloride ER 10Meq Capsules [...] 1 Tab Da adithya Unknown Saline Nasal [place] 0.65% Solution Unknown Coq10 200mg Capsules Every [...] Available Procedures Date Code Description Status 02/24/2021 37123 Office/Outpatient Established Lo w MDM 20-29 Min Completed 02/11/2021 33520 Office/Outpatient Established Mo d MDM 30-39 Min Completed 12/10/2020 88118 Office/Outpatient Established Lo w MDM 20-29 Min Completed 12/10/2020 45262 Irrigation Of Vagina And/Or Appl ication Of Medicament Completed 11/27/2020 21393 Office/Outpatient Established Lo w MDM 20-29 Min Completed 11/19/2020 45691 Pessary Fitting & In sertion Of Pessary/Intravaginal Support Constanza Completed 09/25/2020 21266 Office/Outpatient Established Briana w MDM 20-29 Min Completed Medical Devices Description No Information Available Encounters Type Date Location Provider Dx Diagnosis Office Visit 02/24/2021 2:30p [facility] [employer] Sugar Escalera MD B3 7.3 Candidiasis of vulva and vagina R10.2 Pelvic and perineal pain Office Visit 02/11/2021 9:30a [facility] [employer] Sugar Escalera MD N8 1.11 Cystocele, midline N81.6 Rectocele N81.2 Incomplete uterovaginal prol apse Office Visit 12/10/2020 11:00a [facility] [employer] Sugar Escalera MD N7 6.0 Acute vaginitis N81.11 Cystocele, midline N81.6 Rectocele 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 Office Visit 11/27/2020 2:15p [facility] [employer] Sugar Escalera MD N7 6.0 Acute vaginitis N81.11 Cystocele, midline N81.6 Rectocele Office Visit 09/25/2020 2:00p [facility] [employer] Sugar Escalera MD N7 6.0 Acute vaginitis Assessments Date Code Description Provider 02/24/2021 B37.3 Candidiasis of vulva and vagina Sugar Escalera MD 02/24/2021 R10.2 Pelvic and perineal pain Sugar Escalera MD 02/11/2021 N81.11 Cystocele, midline Glendy Escalera i, MD 02/11/2021 N81.6 Rectocele Sugar Esaclera 02/11/2021 N81.2 Incomplete uterovaginal prolapse uSgar Escalera MD 12/10/2020 N76.0 Acute vaginitis Sugar [...] 12:00 pm - Sugar Escalera MD at [facility] 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
--- OUTSIDE RECORDS SUMMARY | 2021-03-06 06:16 | CCD | Continuity of Care Document ---
Author Author [facility] Organization Unknown Address [address] [place] [phone] Phone Unavailable Care Team Providers Care Flag Signalman Name Role Phone Marina Borges MD AUTM [phone] Farrah Henderson MD AUTM [phone] [facility] AUTM [phone] [facility] AUTM [phone] Oanh Melvin MD AUTM [phone] Samy Cardoza MD AUTM [phone] Ry Benitez DO AUTM [phone] Rama Shelton AUTM [phone] Problems Active Problems Provider Date Enriquez's esophagus [...] Borges M.D. 06/29/2013 Calcium Citrate + D [id number] Tablets 1 po qd 60tabs Marina Borges M.D. 11/14 Multivital Tablets 1 po qd Marina Borges M.D. 01/25/2012 Fish Oil Double Strength 1200mg Ca psules 1 po qd Marina Borges M.D. 01/25/20 12 Co Q10 200mg Capsules 1 by mouth every day Marina Borges M.D. 01/25/20 12 Saline Nasal [place] 0.65% Solution 6-8x/d as directed Marina Borges [...] CPT Code Status Date Vaccine Lot # [id number] Given 02/13/2020 Influenza Vaccin e Quadrivalent Preser/Antibiotic Free Im Use [id number] Given 02/16/2019 Influenza Vaccin e Quadrivalent Preser/Antibiotic Free Im Use [id number] 79476 Given 02/24/2018 Influenza Virus Vaccine, Quadrivalent ([id number]), Derived From 2 Given 2017 Influenza Vaccin e Quadrivalent Preser/Antibiotic Free Im Use [id number] Given 02/11/2017 Prevnar 13 [id number] Given 08/11/2016 Adacel- Tetanus Diphtheria P ertussis [id number] Q2037 Given 03/10/2016 Fluvirin Virus Vaccine 72065 01 Q2037 Given 04/04/2015 Fluvirin Virus Vaccine 32368 01 Q2037 Given 03/01/2014 Fluvirin Virus Vaccine 68041 21 Q2037 Given 03/28/2013 Fluvirin Virus Vaccine 63686 01 Q2037 Given 02/23/2012 Fluvirin Virus Vaccine 03073 01 97019 Given 01/25/2012 Pneumovax 23 [id number] Q2037 Given 03/10/2011 Fluvirin Virus Vaccine 50525 Given 02/17/2010 Influenza Virus Vaccine 32222 Refused 08/11/2018 Zoster Vaccine 18013 Refused 08/10/2017 Zoster Vaccine Vital Signs Date [...] Result H/L Range Note Basic Metabolic Panel 01/28/2021 [facility] Registered Nurse: [place] [address] [phone] Glucose 137 mg/dL High 74 - 99 1 BUN 11 mg/dL 7 - 18 Creatinine 0.7 mg/dL 0.6 - 1.3 Sodium 137 mEq/L 136 - 145 Potassium 3.9 mEq/L 3.5 - 5.1 Chloride 100 mEq/L 98 - 107 Carbon Dioxide 31 mEq/L 21 - 32 Calcium 9.2 mg/dL 8.5 - 10.1 GFR >= 60 mL/min >60 GFR >= 60 mL/min >60 2 Laboratory test finding 01/28/2021 [facility], [facility] Registered Nurse: Dr [place] [address] [phone] Vitamin D 25-Hydroxy 54.0 ng/ml 24.0 - 80.0 3 Basic Metabolic Panel 01/15/2021 [facility], [facility] Registered Nurse: [place] [address] [phone] Glucose 97 mg/dL 74 - 99 4 BUN 9 mg/dL 7 - 18 Creatinine 0.7 mg/dL 0.6 - 1.3 Sodium 136 mEq/L 136 - 145 Potassium 4.5 mEq/L 3.5 - 5.1 Chloride 100 mEq/L 98 - 107 Carbon Dioxide 26 mEq/L 21 - 32 Calcium 9.5 mg/dL 8.5 - 10.1 GFR >= 60 mL/min >60 GFR >= 60 mL/min >60 5 Basic Metabolic Panel 01/07/2021 [facility], [facility] Registered Nurse: Dr [place] [address] [phone] Glucose 132 mg/dL High 74 - 99 6 BUN 11 mg/dL 7 - 18 Creatinine 0.7 mg/dL 0.6 - 1.3 Sodium 133 mEq/L Low 136 - 145 Potassium 3.5 mEq/L 3.5 - 5.1 Chloride 98 mEq/L 98 - 107 Carbon Dioxide 32 mEq/L 21 - 32 Calcium 9.1 mg/dL 8.5 - 10.1 GFR >= 60 mL/min >60 GFR >= 60 mL/min >60 7 Basic Metabolic Panel 12/17/2020 [facility], [facility] Registered Nurse: Dr Michael [place] [address] [phone] Glucose 148 mg/dL High 74 - 99 8 BUN 11 mg/dL 7 - 18 Creatinine 0.7 mg/dL 0.6 - 1.3 Sodium 134 mEq/L Low 136 - 145 Potassium 3.7 mEq/L 3.5 - 5.1 Chloride 97 mEq/L Low 98 - 107 Carbon Dioxide 31 mEq/L 21 - 32 Calcium 9.6 mg/dL 8.5 - 10.1 GFR >= 60 mL/min >60 GFR >= 60 mL/min >60 9 Laboratory test finding 12/17/2020 [facility] [address] [place], [place] [id number] [phone] Genital Culture FULL REPORT IN L <SEE NOTE> Normal 10 Complete Blood Count 12/03/2020 [facility] Registered Nurse: [place] [address] [phone] WBC 6.5 x10*3/UL 4.1 - 10.9 RBC [...] 2.0 - 7.8 Laboratory test finding 12/03/2020 [facility] Registered Nurse: [place] [address] [phone] Magnesium 1.8 mg/dL 1.8 - 2.4 Creatine Kinase(CK) 88 U/L 26 - 192 Comprehensive Chem Profile 12/03/2020 [facility] Registered Nurse: Dr Michael [place] [address] [phone] Glucose 104 mg/dL High 74 - 99 11 BUN 8 mg/dL 7 - 18 Creatinine 0.7 mg/dL 0.6 - 1.3 Sodium 134 mEq/L Low 136 - 145 12 Potassium 3.9 mEq/L 3.5 - 5.1 Chloride [...] >60 GFR >= 60 mL/min >60 13 Lipid Profile 12/03/2020 [facility] , [facility] Registered Nurse: Dr Michael [place] [address] [phone] Cholesterol 166 mg/dL 131 - 200 Triglycerides 44 mg/dL 30 - 150 HDL Cholesterol 111 mg/dL High 35 - 60 LDL (Calculated) 46 CALC Low 50 - 159 Laboratory test finding 12/03/2020 [facility] Registered Nurse: Dr Michael [place] [address] [phone] Thyroid Stimulating Hormone 2.77 uIU/mL 0.3 6 - 3.74 Ua Dipstick Only 12/03/2020 [facility] , [facility] Registered Nurse: Dr Michael [place] [address] [phone] Urine Color YELLOW Yellow Urine Appearance CLOUDY Abnormal Clear Urine PH 8.0 units 5.0 - 9.0 Urine Specific [place] 1.010 1.005 - 1.030 Urine Leukocytes LARGE Abnormal Negative Urine Blood NEGATIVE Negative Urine Protein NEGATIVE Negative -Trace Urine Glucose NEGATIVE mg/dL Negative Urine Nitrite NEGATIVE Negative Urine Ketone NEGATIVE mg/dL Negative Urine Bilirubin NEGATIVE Negative Urine Urobilinogen 0.2 mg/dL 0.2 - 1.0 Xray 11/25/2020 [facility] [address] [place] [address] [phone] Dexa/Bone Density <pending> 3D Bi-Lateral Mammogram <pending> Laboratory test finding 10/17/2020 [facility] [address] [place] [address] [phone] Genital Culture FULL REPORT IN L <SEE NOTE> Normal 14 1 100-125 mg/dL PRE-DIABET ES/FASTING >126 mg/dL DIABETES/FASTING 2 CHRONIC KIDNEY DISEASE STAGI NG PER NKF STAGE I & II GFR >= 60 NORMAL TO MILDLY DECREASED STAGE III GFR 30-59 MODERATELY DECREASED STAGE IV GFR 15-29 SEVERELY DECREASED STAGE V GFR <15 VERY LITTLE GFR LEFT ESRD GFR <15 ON GENERAL ASSISTANT 3 This test was performed [employer] Vitamin D immunoassay kit. Values obtained with different assay methods should not be used interchangeably. 4 100-125 mg/dL PRE-DIABET ES/FASTING >126 mg/dL DIABETES/FASTING 5 CHRONIC KIDNEY DISEASE STAGI NG PER NKF STAGE I & II GFR >= 60 NORMAL TO MILDLY DECREASED STAGE III GFR 30-59 MODERATELY DECREASED STAGE IV GFR 15-29 SEVERELY DECREASED STAGE V GFR <15 VERY LITTLE GFR LEFT ESRD GFR <15 ON GENERAL ASSISTANT 6 100-125 mg/dL PRE-DIABET ES/FASTING >126 mg/dL DIABETES/FASTING 7 CHRONIC KIDNEY DISEASE STAGI NG PER NKF STAGE I & II GFR >= 60 NORMAL TO MILDLY DECREASED STAGE III GFR 30-59 MODERATELY DECREASED STAGE IV GFR 15-29 SEVERELY DECREASED STAGE V GFR <15 VERY LITTLE GFR LEFT ESRD GFR <15 ON GENERAL ASSISTANT 8 100-125 mg/dL PRE-DIABET ES/FASTING >126 mg/dL DIABETES/FASTING 9 CHRONIC KIDNEY DISEASE STAGI NG PER NKF STAGE I & II GFR >= 60 NORMAL TO MILDLY DECREASED STAGE III GFR 30-59 MODERATELY DECREASED STAGE IV GFR 15-29 SEVERELY DECREASED STAGE V GFR <15 VERY LITTLE GFR LEFT ESRD GFR <15 ON GENERAL ASSISTANT 10 FULL REPORT IN LAB NOTES (eC W and [facility]). NORMAL LIYAH PRESENT ORGANISM 1: YEAST LIKE ORGANISM QUANTITY OF GROWTH FEW ORGANISM 1: YEAST LIKE ORGANISM 11 100-125 mg/dL PRE-DIABET ES/FASTING >126 mg/dL DIABETES/FASTING 12 NOTE: LYTES VERIFIED 13 CHRONIC KIDNEY DISEASE STAGI NG PER NKF STAGE I & II GFR >= 60 NORMAL TO MILDLY DECREASED STAGE III GFR 30-59 MODERATELY DECREASED STAGE IV GFR 15-29 SEVERELY DECREASED STAGE V GFR <15 VERY LITTLE GFR LEFT ESRD GFR <15 ON GENERAL ASSISTANT 14 FULL REPORT IN LAB NOTES (eC W and Med[facility]). NORMAL LIYAH PRESENT ORGANISM 1: YEAST LIKE ORGANISM QUANTITY OF GROWTH FEW ORGANISM 1: YEAST LIKE ORGANISM Procedures Date Code Description Status 01/28/2021 74554 Office/Outpatient Established Mo d MDM 30-39 Min Completed 01/07/2021 33795 Office/Outpatient Established Mo d MDM 30-39 Min Completed 12/17/2020 48581 Office/Outpatient Established Mo d MDM 30-39 Min Completed 12/17/2020 [id number] Bone Mineral Density Test Comple king 12/04/2020 86785 Office/Outpatient Established Mo d MDM 30-39 Min Completed 11/25/2020 [id number] Mammogram Completed 10/17/2020 99827 Office/Outpatient Established Lo w MDM 20-29 Min Completed 11/23/2019 [id number] Mammogram Completed 09/27/2018 [id number] Mammogram Completed 09/27/2018 [id number] Bone Mineral Density Test Comple king 01/10/2018 [id number] Diabetic Retinal Eye Exam Comple king 12/22/2017 [id number] Diabetic Retinal Eye Exam Comple king 08/24/2017 [id number] Mammogram Completed 09/22/2016 [id number] Bone Mineral Density Test Comple king 08/13/2016 [id number] Mammogram Completed 02/05/2015 [id number] Mammogram Completed 12/20/2014 [id number] Colonoscopy Completed 11/29/2014 [id number] Mammogram Completed 02/01/2014 [id number] Mammogram Completed 02/01/2014 [id number] Bone Mineral Density Test Comple king 01/25/2013 [id number] Mammogram Completed 01/13/2012 [id number] Mammogram Completed 01/13/2012 [id number] Bone Mineral Density Test Comple king 12/11/2010 [id number] Mammogram Completed 12/25/2009 [id number] Bone Mineral Density Test Comple king 10/26/2007 [id number] Colonoscopy Completed 07/13/2003 [id number] Mammogram Completed Medical Devices Description No Information Available Encounters Type Date Location Provider Dx Diagnosis Office Visit [facility] Essential (primary) hyperten jana E87.1 Hypo-osmolality and hyponatr emia N76.0 Acute vaginitis N81.10 Cystocele, unspecified F41.9 Anxiety disorder, unspecifie d K22.70 Enriquez's esophagus without dysplasia M81.0 Age-related osteoporosis w/o current pathological fracture Office Visit 01/07/2021 2:45p [facility] N76.0 Acute vaginitis F41.9 Anxiety disorder, unspecifie d G25.81 Restless legs syndrome E87.1 Hypo-osmolality and hyponatr emia I10 Essential (primary) hyperten jana K59.00 Constipation, unspecified K22.70 Enriquez's esophagus without dysplasia Office Visit 12/17/2020 1:00p [facility] N76.0 Acute vaginitis F41.9 Anxiety disorder, unspecifie d E87.1 Hypo-osmolality and hyponatr emia I10 Essential (primary) hyperten jana K59.00 Constipation, unspecified K22.70 Enriquez's esophagus without dysplasia G25.81 Restless legs syndrome Office Visit 12/04/2020 8:45a [facility] N76.0 Acute vaginitis F41.9 Anxiety disorder, unspecifie d I10 Essential (primary) hyperten jana E87.1 Hypo-osmolality and hyponatr emia K59.00 Constipation, unspecified K22.70 Enriquez's esophagus without dysplasia E78.00 Pure hypercholesterolemia, u nspecified R73.09 Other abnormal glucose G25.81 Restless legs syndrome Office Visit 10/17/2020 1:30p [facility] N76.0 Acute vaginitis F41.9 [...] contreras M.D. 12/04/2020 F41.9 Anxiety disorder, unspecified Nsareen Borges M.D. 12/04/2020 I10 Essential (primary) hypertension [...] 1:00 pm - Marina Borges M.D. at [facility] * 03/11/2021 8:00 am - Marina Borges M.D. at [facility] 01/28/2021 - Marina Borges M.D.* [...]
--- OUTSIDE RECORDS SUMMARY | 2021-03-06 06:16 | CCD | Continuity of Care Document ---
Author Author Richa Borges M.D. Organization Unknown Address [address] [facility] [address] [place] [address] Phone [phone] Care Team Providers Care Skip Operator Name Role Phone Marina Borges MD AUTM [phone] Farrah Henderson MD AUTM [phone] [facility] AUTM [phone] [facility] AUTM [phone] Oanh Melvin MD AUTM [phone] Samy Cardoza MD AUTM [phone] Ry Benitez DO AUTM [phone] Rama Shelton AUTM [phone] Problems Active Problems Provider Date Enriquez's esophagus [...] Use Start: Unknown Patient has never smoked Allergies, Adverse Reactions, Alerts Active Allergies Criticality Reaction | Severity Comments [...] Daily 90tabs Marina Borges M.D. 12/19/19 21 Pessdeisi de dioskins Marina Borges M.D. 0 12/04/2020 Atorvastatin Calcium [...] Borges M.D. 06/29/2013 Calcium Citrate + D [id number] Tablets 1 po qd 60tabs Marina Borges M.D. 11/14 Multivital Tablets 1 po qd Marina Borges M.D. 01/25/2012 Fish Oil Double Strength 1200mg Ca psules 1 po qd Marina Borges M.D. 01/25/20 12 Co Q10 200mg Capsules 1 by mouth every day Marina Borges M.D. 01/25/20 12 Saline Nasal Butler 0.65% Solution 6-8x/d as directed Marina Borges [...] CPT Code Status Date Vaccine Lot # [id number] Given 02/13/2020 Influenza Vaccin e Quadrivalent Preser/Antibiotic Free Im Use [id number] 48853 Given 02/16/2019 Influenza Vaccin e Quadrivalent Preser/Antibiotic Free Im Use [id number] 84982 Given 02/24/2018 Influenza Virus Vaccine, Quadrivalent ([id number]), Derived From 0 Given 2017 Influenza Vaccin e Quadrivalent Preser/Antibiotic Free Im Use [id number] U-PneuC Given 02/11/2017 Prevnar 13 36016 Given 08/11/2016 Adacel- Tetanus Diphtheria P ertussis [id number] Q2037 Given 03/10/2016 Fluvirin Virus Vaccine [id number] 01 Q2037 Given 04/04/2015 Fluvirin Virus Vaccine 02410 01 Q2037 Given 03/01/2014 Fluvirin Virus Vaccine 81774 21 Q2037 Given 03/28/2013 Fluvirin Virus Vaccine 62584 01 Q2037 Given 02/23/2012 Fluvirin Virus Vaccine 93429 01 97811 Given 01/25/2012 Pneumovax 23 [id number] Q2037 Given 03/10/2011 Fluvirin Virus Vaccine 29499 Given 02/17/2010 Influenza Virus Vaccine 35343 Refused 08/11/2018 Zoster Vaccine 43520 Refused 08/10/2017 Zoster Vaccine Vital Signs Date [...] Date Facility Test Result H/L Range Note Laboratory test finding 01/28/2021 Enedelia saab, vanessa Admissions Advisor: Dr Michael Bull[place] [id number] [phone] Vitamin D 25-Hydroxy 54.0 ng/ml 24.0 - 80.0 1 Basic Metabolic Panel 01/28/2021 [facility], Admissions Advisor: Dr Michael [place], [place] [id number] [phone] Glucose 137 mg/dL High 74 - 99 2 BUN 11 mg/dL 7 - 18 Creatinine 0.7 mg/dL 0.6 - 1.3 Sodium 137 mEq/L 136 - 145 Potassium 3.9 mEq/L 3.5 - 5.1 Chloride 100 mEq/L 98 - 107 Carbon Dioxide 31 mEq/L 21 - 32 Calcium 9.2 mg/dL 8.5 - 10.1 GFR >= 60 mL/min >60 GFR >= 60 mL/min >60 3 Basic Metabolic Panel 01/15/2021 [facility], Admissions Advisor: [place] [address] [phone] Glucose 97 mg/dL 74 - 99 4 [...] mL/min >60 5 Basic Metabolic Panel 01/07/2021 [facility], Admissions Advisor: Dr [place], [place] [id number] [phone] Glucose 132 mg/dL High 74 - 99 [...] mL/min >60 7 Basic Metabolic Panel 12/17/2020 [facility], Admissions Advisor: [place] [address] [phone] Glucose 148 mg/dL High 74 - 99 [...] mL/min >60 9 Laboratory test finding 12/17/2020 [facility] [address] [place] [id number] [phone] Genital Culture FULL REPORT IN L <SEE NOTE> Normal 10 Comprehensive Chem Profile 12/03/2020 [place] [facility] Admissions Advisor: [place] [address] [phone] Glucose 104 mg/dL High 74 - 99 [...] >60 GFR >= 60 mL/min >60 13 Ua Dipstick Only 12/03/2020 [facility] , Admissions Advisor: [place] [address] [phone] Urine Color YELLOW Yellow Urine Appearance CLOUDY Abnormal Clear Urine PH 8.0 units 5.0 - 9.0 Urine Specific [place] 1.010 1.005 - 1.030 Urine Leukocytes LARGE Abnormal Negative Urine Blood NEGATIVE Negative Urine Protein NEGATIVE Negative -Trace Urine Glucose NEGATIVE mg/dL Negative Urine Nitrite NEGATIVE Negative Urine Ketone NEGATIVE mg/dL Negative Urine Bilirubin NEGATIVE Negative Urine Urobilinogen 0.2 mg/dL 0.2 - 1.0 Laboratory test finding 12/03/2020 [place] [facility] [employer] [facility], Admissions Advisor: Dr Michael Bullock [place] [id number] [phone] Thyroid Stimulating Hormone 2.77 uIU/mL 0.3 6 - 3.74 Lipid Profile 12/03/2020 [facility] , Admissions Advisor: [place] [address] [phone] Cholesterol 166 mg/dL 131 - 200 Triglycerides 44 mg/dL 30 - 150 HDL Cholesterol 111 mg/dL High 35 - 60 LDL (Calculated) 46 CALC Low 50 - 159 Laboratory test finding 12/03/2020 [facility] Admissions Advisor: Dr Michael Bullock [place] [id number] [phone] Magnesium 1.8 mg/dL 1.8 - 2.4 Creatine Kinase(CK) 88 U/L 26 - 192 Complete Blood Count 12/03/2020 [place] [facility] [employer], Admissions Advisor: [place] [address] [phone] WBC 6.5 x10*3/UL 4.1 - 10.9 RBC [...] Neut # 4.7 x10*3/UL 2.0 - 7.8 Xray 11/25/2020 [facility] [address] [place], [place] [id number] [phone] Dexa/Bone Density <pending> 3D Bi-Lateral Mammogram <pending> Laboratory test finding 10/17/2020 [facility] [address] [id number] [phone] Genital Culture FULL REPORT IN L <SEE NOTE> Normal 14 Basic Metabolic Panel 08/07/2020 [facility] [facility] Admissions Advisor: [place] [address] [phone] Glucose 104 mg/dL High 74 - 99 15 BUN 11 mg/dL 7 - 18 Creatinine 0.7 mg/dL 0.6 - 1.3 Sodium 135 mEq/L Low 136 - 145 16 Potassium 3.9 mEq/L 3.5 - 5.1 Chloride 96 mEq/L Low 98 - 107 Carbon Dioxide 27 mEq/L 21 - 32 Calcium 9.1 mg/dL 8.5 - 10.1 GFR >= 60 mL/min >60 GFR >= 60 mL/min >60 17 Lipid Profile 08/07/2020 [facility] Admissions Advisor: [place] [address] [phone] Cholesterol 212 mg/dL High 131 - 200 Triglycerides 79 mg/dL 30 - 150 HDL Cholesterol 91 mg/dL High 35 - 60 LDL (Calculated) 105 CALC 50 - 159 1 This test was performed usin JW Player IP Vitamin D immunoassay kit. Values obtained with different assay methods should not be used interchangeably. 2 100-125 mg/dL PRE-DIABET ES/FASTING >126 mg/dL DIABETES/FASTING 3 CHRONIC KIDNEY DISEASE STAGI NG PER NKF STAGE I & II GFR >= 60 NORMAL TO MILDLY DECREASED STAGE III GFR 30-59 MODERATELY DECREASED STAGE IV GFR 15-29 SEVERELY DECREASED STAGE V GFR <15 VERY LITTLE GFR LEFT ESRD GFR <15 ON STITCH WHEELER 4 100-125 mg/dL PRE-DIABET ES/FASTING >126 mg/dL DIABETES/FASTING 5 CHRONIC KIDNEY DISEASE STAGI NG PER NKF STAGE I & II GFR >= 60 NORMAL TO MILDLY DECREASED STAGE III GFR 30-59 MODERATELY DECREASED STAGE IV GFR 15-29 SEVERELY DECREASED STAGE V GFR <15 VERY LITTLE GFR LEFT ESRD GFR <15 ON STITCH WHEELER 6 100-125 mg/dL PRE-DIABET ES/FASTING >126 mg/dL DIABETES/FASTING 7 CHRONIC KIDNEY DISEASE STAGI NG PER NKF STAGE I & II GFR >= 60 NORMAL TO MILDLY DECREASED STAGE III GFR 30-59 MODERATELY DECREASED STAGE IV GFR 15-29 SEVERELY DECREASED STAGE V GFR <15 VERY LITTLE GFR LEFT ESRD GFR <15 ON STITCH WHEELER 8 100-125 mg/dL PRE-DIABET ES/FASTING >126 mg/dL DIABETES/FASTING 9 CHRONIC KIDNEY DISEASE STAGI NG PER NKF STAGE I & II GFR >= 60 NORMAL TO MILDLY DECREASED STAGE III GFR 30-59 MODERATELY DECREASED STAGE IV GFR 15-29 SEVERELY DECREASED STAGE V GFR <15 VERY LITTLE GFR LEFT ESRD GFR <15 ON STITCH WHEELER 10 FULL REPORT IN LAB NOTES (eC [...] LITTLE GFR LEFT ESRD GFR <15 ON STITCH WHEELER 14 FULL REPORT IN LAB NOTES (eC W and [facility]). NORMAL LIYAH PRESENT ORGANISM 1: YEAST LIKE ORGANISM QUANTITY OF GROWTH FEW ORGANISM 1: YEAST LIKE ORGANISM 15 100-125 mg/dL PRE-DIABET ES/FASTING >126 mg/dL DIABETES/FASTING 16 NOTE: RESULT VERIFIED. 17 CHRONIC KIDNEY DISEASE STAGI NG PER NKF STAGE I & II GFR >= 60 NORMAL TO MILDLY DECREASED STAGE III GFR 30-59 MODERATELY DECREASED STAGE IV GFR 15-29 SEVERELY DECREASED STAGE V GFR <15 VERY LITTLE GFR LEFT ESRD GFR <15 ON STITCH WHEELER Procedures Date Code Description Status 01/28/2021 92672 Office/Outpatient Established Mo d MDM 30-39 Min Completed 01/07/2021 03326 Office/Outpatient Established Mo d MDM 30-39 Min Completed 12/17/2020 33308 Office/Outpatient Established Mo d MDM 30-39 Min Completed 12/17/2020 [id number] Bone Mineral Density Test Comple king 12/04/2020 15490 Office/Outpatient Established Mo d MDM 30-39 Min Completed 11/25/2020 [id number] Mammogram Completed 10/17/2020 98189 Office/Outpatient Established Lo w MDM 20-29 Min Completed 08/08/2020 26048 Office/Outpatient Established Mo d MDM 30-39 Min Completed 11/23/2019 [id number] Mammogram Completed 09/27/2018 [id number] Mammogram Completed 09/27/2018 [id number] Bone Mineral Density Test Comple king 01/10/2018 [id number] Diabetic Retinal Eye Exam Comple king 12/22/2017 [id number] Diabetic Retinal Eye Exam Comple [facility] 08/24/2017 [id number] Mammogram Completed 09/22/2016 [id number] Bone Mineral Density Test Comple [facility] 08/13/2016 [id number] Mammogram Completed 02/05/2015 [id number] Mammogram Completed 12/20/2014 [id number] Colonoscopy Completed 11/29/2014 [id number] Mammogram Completed 02/01/2014 [id number] Mammogram Completed 02/01/2014 [id number] Bone Mineral Density Test Comple [facility] 01/25/2013 [id number] Mammogram Completed 01/13/2012 [id number] Mammogram Completed 01/13/2012 [id number] Bone Mineral Density Test Comple [facility] 12/11/2010 [id number] Mammogram Completed 12/25/2009 [id number] Bone Mineral Density Test Comple [facility] 10/26/2007 [id number] Colonoscopy Completed 07/13/2003 [id number] Mammogram Completed Medical Devices Description No Information [...] esophagus without dysplasia Office Visit 12/17/2020 [facility] [place] [facility] N76.0 Acute vaginitis F41.9 Anxiety disorder, unspecifie d E87.1 Hypo-osmolality and hyponatr emia I10 Essential (primary) hyperten jana K59.00 Constipation, unspecified K22.70 Enriquez's esophagus without dysplasia G25.81 Restless legs syndrome Office Visit 12/04/2020 8:45a [place] [facility] N76.0 Acute vaginitis F41.9 Anxiety disorder, unspecifie d I10 Essential (primary) hyperten jana E87.1 Hypo-osmolality and hyponatr emia K59.00 Constipation, unspecified K22.70 Enriquez's esophagus without dysplasia E78.00 Pure hypercholesterolemia, u nspecified R73.09 Other abnormal glucose G25.81 Restless legs syndrome Office Visit 10/17/2020 1:30p [place] [facility] M.[facility] N76.0 Acute vaginitis F41.9 Anxiety disorder, unspecifie d Office Visit 08/08/2020 8:30a [place] [facility] I10 Essential (primary) hyperten jana E78.00 Pure hypercholesterolemia, u nspecified R73.09 Other abnormal glucose F41.9 Anxiety disorder, unspecifie d R00.2 Palpitations K59.00 Constipation, unspecified G25.81 Restless legs syndrome E87.1 Hypo-osmolality and hyponatr emia Assessments Date Code Description Provider 01/28/2021 I10 [...] hyponatremia Marina Borges M.D. 12/04/2020 K59.00 Constipation, andersonified Marina Borges M.D. 12/04/2020 K22.70 Enriquez's esophagus [...] F41.9 Anxiety disorder, unspecified Nasreen Borges M.D. 08/08/2020 I10 Essential (primary) hypertension Marina Borges M.D. 08/08/2020 E78.00 Pure hypercholesterolemia, unspe cified Marina Borges M.D. 08/08/2020 R73.09 Other abnormal glucose Marina Borges M.D. 08/08/2020 F41.9 Anxiety disorder, unspecified Nasreen Borges M.D. 08/08/2020 R00.2 Palpitations Marina contreras M.D. 08/08/2020 K59.00 Constipation, unspecified Marina Borges M.D. 08/08/2020 G25.81 Restless legs syndrome Marina Borges M.D. 08/08/2020 E87.1 Hypo-osmolality and hyponatremia Marina Borges M.D. 08/07/2020 I10 Essential (primary) hypertension Marina Borges M.D. 08/07/2020 I10 Essential (primary) hypertension Lab Schedule 08/07/2020 E78.00 Pure hypercholesterolemia, unspe cified Marina Borges M.D. 08/07/2020 E78.00 Pure hypercholesterolemia, unspe cified Lab Schedule Plan of Treatment Future Appointment(s):* 03/11/2021 8:00 am - Marina Borges M.D. at [facility] 01/28/2021 - Marina Borges M.D.* [...]
--- OUTSIDE RECORDS SUMMARY | 2021-03-06 06:16 | CCD | Continuity of Care Document ---
Author Author Richa Borges M.D. Organization Unknown Address [address] [facility] [address] [place] [address] Phone [phone] Care Team Providers Care Rn Clinical Documentation Name Role Phone Marina Borges MD AUTM [phone] Farrah Henderson MD AUTM [phone] [facility] AUTM [phone] [facility] AUTM [phone] Oanh Melvin MD AUTM [phone] Samy Cardoza MD AUTM [phone] Ry Benitez DO AUTM [phone] Rama Shelton AUTM [phone] Problems Active Problems Provider Date Enriquez's esophagus Dheeraj Figueroa D.O. Onset: 2010 Osteoporosis Dheeraj Figueroa D.O. Onset: 2010 Essential hypertension Dheeraj Figueroa D.O. Onset: Gastroesophageal reflux disease Dheeraj Figueroa D.O. O nset: 04/29/2011 Pure hypercholesterolemia Deheraj Figueroa D.O. Onset: 04/29/2011 Social History Type [...] Borges M.D. 06/29/2013 Calcium Citrate + D [id number] Tablets 1 po qd 60tabs Marina Borges M.D. 11/14 Multivital Tablets 1 po qd Marina Borges M.D. 01/25/2012 Fish Oil Double Strength 1200mg Ca psules 1 po qd Marina Borges M.D. 01/25/20 12 Co Q10 200mg Capsules 1 by mouth every day Marina Borges M.D. 01/25/20 12 Saline Nasal [place] 0.65% Solution 6-8x/d as directed Marina Borges [...] 02/17/20 19 Administration Of Flu Vaccine Inj PARTICIO Thurman 02/24/2018 Administration Of Flu Vaccine Inj [...] CPT Code Status Date Vaccine Lot # 41833 Given 02/13/2020 Influenza Vaccin e Quadrivalent Preser/Antibiotic Free Im Use 301885 32684 Given 02/16/2019 Influenza Vaccin e Quadrivalent Preser/Antibiotic Free Im Use [id number] 19466 Given 02/24/2018 Influenza Virus Vaccine, Quadrivalent (Cciiv4), Derived From 3 Given 2017 Influenza Vaccin e Quadrivalent Preser/Antibiotic Free Im Use [id number] U-PneuC Given 02/11/2017 Prevnar 13 10088 Given 08/11/2016 Adacel- Tetanus Diphtheria P ertussis (Age64 & Under) [id number] Q2037 Given 03/10/2016 Fluvirin Virus Vaccine 66430 01 Q2037 Given 04/04/2015 Fluvirin Virus Vaccine 75440 01 Q2037 Given 03/01/2014 Fluvirin Virus Vaccine 96763 21 Q2037 Given 03/28/2013 Fluvirin Virus Vaccine 78642 01 Q2037 Given 02/23/2012 Fluvirin Virus Vaccine 59277 01 86381 Given 01/25/2012 Pneumovax 23 [id number] Q2037 Given 03/10/2011 Fluvirin Virus Vaccine 81118 Given 02/17/2010 Influenza Virus Vaccine 82074 Refused 08/11/2018 Zoster Vaccine 46459 Refused 08/10/2017 Zoster Vaccine Vital Signs Date [...] H/L Range Note Laboratory test finding 01/28/2021 vanessa Gambino Window Glazier Helper: Dr Michael Bullock [place] [id number] [phone] Vitamin D 25-Hydroxy <pending> Basic Metabolic Panel 01/28/2021 [facility], Window Glazier Helper: Dr Michael Bullock [place] [id number] [phone] Glucose 137 mg/dL High 74 - 99 1 BUN 11 mg/dL 7 - 18 Creatinine 0.7 mg/dL 0.6 - 1.3 Sodium 137 mEq/L 136 - 145 Potassium 3.9 mEq/L 3.5 - 5.1 Chloride 100 mEq/L 98 - 107 Carbon Dioxide 31 mEq/L 21 - 32 Calcium 9.2 mg/dL 8.5 - 10.1 GFR >= 60 mL/min >60 GFR >= 60 mL/min >60 2 Basic Metabolic Panel 01/15/2021 [facility], Window Glazier Helper: Dr Michael Bullock [place], [place] [id number] [phone] Glucose 97 mg/dL 74 - 99 3 BUN 9 mg/dL 7 - 18 Creatinine 0.7 mg/dL 0.6 - 1.3 Sodium 136 mEq/L 136 - 145 Potassium 4.5 mEq/L 3.5 - 5.1 Chloride 100 mEq/L 98 - 107 Carbon Dioxide 26 mEq/L 21 - 32 Calcium 9.5 mg/dL 8.5 - 10.1 GFR >= 60 mL/min >60 GFR >= 60 mL/min >60 4 Basic Metabolic Panel 01/07/2021 [facility], Window Glazier Helper: Dr Michael [place], [place] [id number] [phone] Glucose 132 mg/dL High 74 - 99 5 BUN 11 mg/dL 7 - 18 Creatinine 0.7 mg/dL 0.6 - 1.3 Sodium 133 mEq/L Low 136 - 145 Potassium 3.5 mEq/L 3.5 - 5.1 Chloride 98 mEq/L 98 - 107 Carbon Dioxide 32 mEq/L 21 - 32 Calcium 9.1 mg/dL 8.5 - 10.1 GFR >= 60 mL/min >60 GFR >= 60 mL/min >60 6 Basic Metabolic Panel 12/17/2020 [facility], Window Glazier Helper: [place] [address] [phone] Glucose 148 mg/dL High 74 - 99 7 BUN 11 mg/dL 7 - 18 Creatinine 0.7 mg/dL 0.6 - 1.3 Sodium 134 mEq/L Low 136 - 145 Potassium 3.7 mEq/L 3.5 - 5.1 Chloride 97 mEq/L Low 98 - 107 Carbon Dioxide 31 mEq/L 21 - 32 Calcium 9.6 mg/dL 8.5 - 10.1 GFR >= 60 mL/min >60 GFR >= 60 mL/min >60 8 Laboratory test finding 12/17/2020 [facility] [address] [place], [place] [id number] [phone] Genital Culture FULL REPORT IN L <SEE NOTE> Normal 9 Comprehensive Chem Profile 12/03/2020 [facility], Window Glazier Helper: [place] [address] [phone] Glucose 104 mg/dL High 74 - 99 10 BUN 8 mg/dL 7 - 18 Creatinine 0.7 mg/dL 0.6 - 1.3 Sodium 134 mEq/L Low 136 - 145 11 Potassium 3.9 mEq/L 3.5 - 5.1 Chloride [...] mL/min >60 GFR >= 60 mL/min >60 12 Ua Dipstick Only 12/03/2020 [facility] , Window Glazier Helper: [place] [address] [phone] Urine Color YELLOW Yellow Urine Appearance CLOUDY Abnormal Clear Urine PH 8.0 units 5.0 - 9.0 Urine Specific [place] 1.010 1.005 - 1.030 Urine Leukocytes LARGE Abnormal Negative Urine Blood NEGATIVE Negative Urine Protein NEGATIVE Negative -Trace Urine Glucose NEGATIVE mg/dL Negative Urine Nitrite NEGATIVE Negative Urine Ketone NEGATIVE mg/dL Negative Urine Bilirubin NEGATIVE Negative Urine Urobilinogen 0.2 mg/dL 0.2 - 1.0 Laboratory test finding 12/03/2020 [facility], Window Glazier Helper: Dr Michael Bullock [place] [id number] [phone] Thyroid Stimulating Hormone 2.77 uIU/mL 0.3 6 - 3.74 Lipid Profile 12/03/2020 [facility] , Window Glazier Helper: Dr Michael Bullock [place] [id number] [phone] Cholesterol 166 mg/dL 131 - 200 Triglycerides 44 mg/dL 30 - 150 HDL Cholesterol 111 mg/dL High 35 - 60 LDL (Calculated) 46 CALC Low 50 - 159 Laboratory test finding 12/03/2020 [facility] Window Glazier Helper: Dr Michael Bullock [place] [id number] [phone] Magnesium 1.8 mg/dL 1.8 - 2.4 Creatine Kinase(CK) 88 U/L 26 - 192 Complete Blood Count 12/03/2020 [facility], Window Glazier Helper: [place] [address] [phone] WBC 6.5 x10*3/UL 4.1 - 10.9 RBC [...] [facility] [address] [place], [place] [id number] [phone] Dexa/Bone Density <pending> 3D Bi-Lateral Mammogram <pending> Laboratory test finding 10/17/2020 [facility] [address] [place] [address] [phone] Genital Culture FULL REPORT IN L <SEE NOTE> Normal 13 Basic Metabolic Panel 08/07/2020 [facility] Window Glazier Helper: [place] [address] [phone] Glucose 104 mg/dL High 74 - 99 14 BUN 11 mg/dL 7 - 18 Creatinine 0.7 mg/dL 0.6 - 1.3 Sodium 135 mEq/L Low 136 - 145 15 Potassium 3.9 mEq/L 3.5 - 5.1 Chloride 96 mEq/L Low 98 - 107 Carbon Dioxide 27 mEq/L 21 - 32 Calcium 9.1 mg/dL 8.5 - 10.1 GFR >= 60 mL/min >60 GFR >= 60 mL/min >60 16 Lipid Profile 08/07/2020 [facility] Window Glazier Helper: [place] [address] [phone] Cholesterol 212 mg/dL High 131 - 200 Triglycerides 79 mg/dL 30 - 150 HDL Cholesterol 91 mg/dL High 35 - 60 LDL (Calculated) 105 CALC 50 - 159 1 100-125 mg/dL PRE-DIABET ES/FASTING >126 mg/dL DIABETES/FASTING 2 CHRONIC KIDNEY DISEASE STAGI NG PER NKF STAGE I & II GFR >= 60 NORMAL TO MILDLY DECREASED STAGE III GFR 30-59 MODERATELY DECREASED STAGE IV GFR 15-29 SEVERELY DECREASED STAGE V GFR <15 VERY LITTLE GFR LEFT ESRD GFR <15 ON ROLL MACHINE OPERATOR 3 100-125 mg/dL PRE-DIABET ES/FASTING >126 mg/dL DIABETES/FASTING 4 CHRONIC KIDNEY DISEASE STAGI NG PER NKF STAGE I & II GFR >= 60 NORMAL TO MILDLY DECREASED STAGE III GFR 30-59 MODERATELY DECREASED STAGE IV GFR 15-29 SEVERELY DECREASED STAGE V GFR <15 VERY LITTLE GFR LEFT ESRD GFR <15 ON ROLL MACHINE OPERATOR 5 100-125 mg/dL PRE-DIABET ES/FASTING >126 mg/dL DIABETES/FASTING 6 CHRONIC KIDNEY DISEASE STAGI NG PER NKF STAGE I & II GFR >= 60 NORMAL TO MILDLY DECREASED STAGE III GFR 30-59 MODERATELY DECREASED STAGE IV GFR 15-29 SEVERELY DECREASED STAGE V GFR <15 VERY LITTLE GFR LEFT ESRD GFR <15 ON ROLL MACHINE OPERATOR 7 100-125 mg/dL PRE-DIABET ES/FASTING >126 mg/dL DIABETES/FASTING 8 CHRONIC KIDNEY DISEASE STAGI NG PER NKF STAGE I & II GFR >= 60 NORMAL TO MILDLY DECREASED STAGE III GFR 30-59 MODERATELY DECREASED STAGE IV GFR 15-29 SEVERELY DECREASED STAGE V GFR <15 VERY LITTLE GFR LEFT ESRD GFR <15 ON ROLL MACHINE OPERATOR 9 FULL REPORT IN LAB NOTES (eC W and Med[facility]). NORMAL LIYAH PRESENT ORGANISM 1: YEAST LIKE ORGANISM QUANTITY OF GROWTH FEW ORGANISM 1: YEAST LIKE ORGANISM 10 100-125 mg/dL PRE-DIABET ES/FASTING >126 mg/dL DIABETES/FASTING 11 NOTE: LYTES VERIFIED 12 CHRONIC KIDNEY DISEASE STAGI NG PER NKF STAGE I & II GFR >= 60 NORMAL TO MILDLY DECREASED STAGE III GFR 30-59 MODERATELY DECREASED STAGE IV GFR 15-29 SEVERELY DECREASED STAGE V GFR <15 VERY LITTLE GFR LEFT ESRD GFR <15 ON ROLL MACHINE OPERATOR 13 FULL REPORT IN LAB NOTES (eC W and Medent). NORMAL LIYAH PRESENT ORGANISM 1: YEAST LIKE ORGANISM QUANTITY OF GROWTH FEW ORGANISM 1: YEAST LIKE ORGANISM 14 100-125 mg/dL PRE-DIABET ES/FASTING >126 mg/dL DIABETES/FASTING 15 NOTE: RESULT VERIFIED. 16 CHRONIC KIDNEY DISEASE STAGI NG PER NKF STAGE I & II GFR >= 60 NORMAL TO MILDLY DECREASED STAGE III GFR 30-59 MODERATELY DECREASED STAGE IV GFR 15-29 SEVERELY DECREASED STAGE V GFR <15 VERY LITTLE GFR LEFT ESRD GFR <15 ON ROLL MACHINE OPERATOR Procedures Date Code Description Status 01/07/2021 73068 Office/Outpatient Established Mo d MDM 30-39 Min Completed 12/17/2020 50655 Office/Outpatient Established Mo d MDM 30-39 Min Completed 12/17/2020 [id number] Bone Mineral Density Test Comple king 12/04/2020 86540 Office/Outpatient Established Mo d MDM 30-39 Min Completed 11/25/2020 [id number] Mammogram Completed 10/17/2020 17967 Office/Outpatient Established Lo w MDM 20-29 Min Completed 08/08/2020 15065 Office/Outpatient Established Mo d MDM 30-39 Min Completed 11/23/2019 [id number] Mammogram Completed 09/27/2018 [id number] Mammogram Completed 09/27/2018 [id number] Bone Mineral Density Test Comple king 01/10/2018 [id number] Diabetic Retinal Eye Exam Comple king 12/22/2017 [id number] Diabetic Retinal Eye Exam Comple king 08/24/2017 [id number] Mammogram Completed 09/22/2016 [id number] Bone Mineral Density Test Comple king 08/13/2016 [id number] Mammogram Completed 02/05/2015 [id number] Mammogram Completed 12/20/2014 [id number] Colonoscopy Completed 11/29/2014 [id number] Mammogram Completed 02/01/2014 [id number] Mammogram Completed 02/01/2014 [id number] Bone Mineral Density Test Comple king 01/25/2013 [id number] Mammogram Completed 01/13/2012 [id number] Mammogram Completed 01/13/2012 [id number] Bone Mineral Density Test Comple king 12/11/2010 [id number] Mammogram Completed 12/25/2009 [id number] Bone Mineral Density Test Comple king 10/26/2007 [id number] Colonoscopy Completed 07/13/2003 [id number] Mammogram Completed Medical Devices Description No Information Available Encounters Type Date Location Provider Dx Diagnosis Office Visit 01/07/2021 2:45p [facility] N76.0 Acute vaginitis F41.9 Anxiety disorder, unspecifie d G25.81 Restless legs syndrome E87.1 Hypo-osmolality and hyponatr emia I10 Essential (primary) hyperten jana K59.00 Constipation, unspecified K22.70 Enriquez's esophagus without dysplasia Office Visit 12/17/2020 1:00p [facility] PNikaCNika Borges M.D. N76.0 Acute vaginitis F41.9 Anxiety disorder, unspecifie d E87.1 Hypo-osmolality and hyponatr emia I10 Essential (primary) hyperten jana K59.00 Constipation, unspecified K22.70 Enriquez's esophagus without dysplasia G25.81 Restless legs syndrome Office Visit 12/04/2020 8[facility] N76.0 Acute vaginitis F41.9 Anxiety disorder, unspecifie d I10 Essential (primary) hyperten jana E87.1 Hypo-osmolality and hyponatr emia K59.00 Constipation, unspecified K22.70 Enriquez's esophagus without dysplasia E78.00 Pure hypercholesterolemia, u nspecified R73.09 Other abnormal glucose G25.81 Restless legs syndrome Office Visit 10/17/2020 [facility] N76.0 Acute vaginitis F41.9 Anxiety disorder, unspecifie d Office Visit 08/08/2020 8[facility]a [facility] I10 Essential (primary) hyperten jana [...] 8:00 am - Marina [facility] 01/28/2021 - Marina Borges M.D.* I10 [...]
--- OUTSIDE RECORDS SUMMARY | 2021-03-06 06:16 | CCD | Continuity of Care Document ---
Author Author Richa Borges M.D. Organization Unknown Address [address] [facility] [address] [place] [address] Phone [phone] Care Team Providers Care Dispatcher Maintenance Service Name Role Phone Marina Borges MD AUTM [phone] Farrah Henderson MD AUTM [phone] [facility] AUTM [phone] [facility] AUTM [phone] Oanh Melvin MD AUTM [phone] Samy Cardoza MD AUTM [phone] Ry Benitez DO AUTM [phone] Rama Shelton AUTM [phone] Problems Active Problems Provider Date Enriquez's esophagus [...] Borges M.D. 06/29/2013 Calcium Citrate + D [id number] Tablets 1 po qd 60tabs Marina Borges M.D. 11/14 Multivital Tablets 1 po qd Marina Borges M.D. 01/25/2012 Fish Oil Double Strength 1200mg Ca psules 1 po qd Marina Borges M.D. 01/25/20 12 Co Q10 200mg Capsules 1 by mouth every day Marina Borges M.D. 01/25/20 12 Saline Nasal [place] 0.65% Solution 6-8x/d as directed Marina Borges [...] CPT Code Status Date Vaccine Lot # 52586 Given 02/13/2020 Influenza Vaccin e Quadrivalent Preser/Antibiotic Free Im Use [id number] 67536 Given 02/16/2019 Influenza Vaccin e Quadrivalent Preser/Antibiotic Free Im Use 818222 45462 Given 02/24/2018 Influenza Virus Vaccine, Quadrivalent (Cciiv4), Derived From 2 Given 2017 Influenza Vaccin e Quadrivalent Preser/Antibiotic Free Im Use 581998 U-PneuC Given 02/11/2017 Prevnar 13 31950 Given 08/11/2016 Adacel- Tetanus Diphtheria P ertussis (Age64 & Under) [id number] Q2037 Given 03/10/2016 Fluvirin Virus Vaccine 34634 01 Q2037 Given 04/04/2015 Fluvirin Virus Vaccine 96537 01 Q2037 Given 03/01/2014 Fluvirin Virus Vaccine 10059 21 Q2037 Given 03/28/2013 Fluvirin Virus Vaccine 28006 01 Q2037 Given 02/23/2012 Fluvirin Virus Vaccine 39647 01 93500 Given 01/25/2012 Pneumovax 23 [id number] Q2037 Given 03/10/2011 Fluvirin Virus Vaccine 49263 Given 02/17/2010 Influenza Virus Vaccine 15143 Refused 08/11/2018 Zoster Vaccine 22756 Refused 08/10/2017 Zoster Vaccine Vital Signs Date [...] Note Laboratory test finding 01/28/2021 vanessa Gambino Head Still Operator: Dr Michael Bullock [place] [id number] [phone] Vitamin D 25-Hydroxy <pending> Basic Metabolic Panel 01/28/2021 [facility], Head Still Operator: Dr Michael Bullock [place] [id number] [phone] Glucose 137 mg/dL High 74 - 99 [...] mL/min >60 2 Basic Metabolic Panel 01/15/2021 [facility], Head Still Operator: Dr Michael Bullock [place], [place] [address]54 [phone] Glucose 97 mg/dL 74 - 99 3 [...] mL/min >60 4 Basic Metabolic Panel 01/07/2021 [facility], Head Still Operator: Dr Michael [place], [place] 0593293 [phone] Glucose 132 mg/dL High 74 - 99 [...] mL/min >60 6 Basic Metabolic Panel 12/17/2020 [facility], Head Still Operator: [place] [address] [phone] Glucose 148 mg/dL High 74 - 99 [...] mL/min >60 8 Laboratory test finding 12/17/2020 [facility] [address] [place], [place] [address] [phone] Genital Culture FULL REPORT IN L <SEE NOTE> Normal 9 Comprehensive Chem Profile 12/03/2020 [facility], Head Still Operator: [place] [address] [phone] Glucose 104 mg/dL High 74 - 99 [...] mL/min >60 12 Ua Dipstick Only 12/03/2020 [facility] , Head Still Operator: [place] [address] [phone] Urine Color YELLOW Yellow Urine Appearance CLOUDY Abnormal Clear Urine PH 8.0 units 5.0 - 9.0 Urine Specific [place] 1.010 1.005 - 1.030 Urine Leukocytes LARGE Abnormal Negative Urine Blood NEGATIVE Negative Urine Protein NEGATIVE Negative -Trace Urine Glucose NEGATIVE mg/dL Negative Urine Nitrite NEGATIVE Negative Urine Ketone NEGATIVE mg/dL Negative Urine Bilirubin NEGATIVE Negative Urine Urobilinogen 0.2 mg/dL 0.2 - 1.0 Laboratory test finding 12/03/2020 [facility], Head Still Operator: Dr Michael Bullock [place] [id number] [phone] Thyroid Stimulating Hormone 2.77 uIU/mL 0.3 6 - 3.74 Lipid Profile 12/03/2020 [facility] , Head Still Operator: Dr Michael Bullock [place] [id number] [phone] Cholesterol 166 mg/dL 131 - 200 Triglycerides 44 mg/dL 30 - 150 HDL Cholesterol 111 mg/dL High 35 - 60 LDL (Calculated) 46 CALC Low 50 - 159 Laboratory test finding 12/03/2020 [facility] Head Still Operator: Dr Michael Bullock [place] [id number] [phone] Magnesium 1.8 mg/dL 1.8 - 2.4 Creatine Kinase(CK) 88 U/L 26 - 192 Complete Blood Count 12/03/2020 [facility], Head Still Operator: [place] [address] [phone] WBC 6.5 x10*3/UL 4.1 - 10.9 RBC [...] [facility] [address] [place], [place] [id number] [phone] Dexa/Bone Density <pending> 3D Bi-Lateral Mammogram <pending> Laboratory test finding 10/17/2020 [facility] [address] [place] [address] [phone] Genital Culture FULL REPORT IN L <SEE NOTE> Normal 13 Basic Metabolic Panel 08/07/2020 [facility] Head Still Operator: [place] [address] [phone] Glucose 104 mg/dL High 74 - 99 [...] 60 mL/min >60 16 Lipid Profile 08/07/2020 [facility] Head Still Operator: [place] [address] [phone] Cholesterol 212 mg/dL High 131 - 200 [...] LITTLE GFR LEFT ESRD GFR <15 ON MANAGER LAND 3 100-125 mg/dL PRE-DIABET ES/FASTING >126 mg/dL DIABETES/FASTING 4 CHRONIC KIDNEY DISEASE STAGI NG PER NKF STAGE I & II GFR >= 60 NORMAL TO MILDLY DECREASED STAGE III GFR 30-59 MODERATELY DECREASED STAGE IV GFR 15-29 SEVERELY DECREASED STAGE V GFR <15 VERY LITTLE GFR LEFT ESRD GFR <15 ON MANAGER LAND 5 100-125 mg/dL PRE-DIABET ES/FASTING >126 mg/dL DIABETES/FASTING 6 CHRONIC KIDNEY DISEASE STAGI NG PER NKF STAGE I & II GFR >= 60 NORMAL TO MILDLY DECREASED STAGE III GFR 30-59 MODERATELY DECREASED STAGE IV GFR 15-29 SEVERELY DECREASED STAGE V GFR <15 VERY LITTLE GFR LEFT ESRD GFR <15 ON MANAGER LAND 7 100-125 mg/dL PRE-DIABET ES/FASTING >126 mg/dL DIABETES/FASTING 8 CHRONIC KIDNEY DISEASE STAGI NG PER NKF STAGE I & II GFR >= 60 NORMAL TO MILDLY DECREASED STAGE III GFR 30-59 MODERATELY DECREASED STAGE IV GFR 15-29 SEVERELY DECREASED STAGE V GFR <15 VERY LITTLE GFR LEFT ESRD GFR <15 ON MANAGER LAND 9 FULL REPORT IN LAB NOTES (eC [...] LITTLE GFR LEFT ESRD GFR <15 ON MANAGER LAND 13 FULL REPORT IN LAB NOTES (eC [...] LITTLE GFR LEFT ESRD GFR <15 ON MANAGER LAND Procedures Date Code Description Status 01/07/2021 30397 Office/Outpatient Established Mo d MDM 30-39 Min Completed 12/17/2020 96003 Office/Outpatient Established Mo d MDM 30-39 Min Completed 12/17/2020 [id number] Bone Mineral Density Test Comple king 12/04/2020 54024 Office/Outpatient Established Mo d MDM 30-39 Min Completed 11/25/2020 [id number] Mammogram Completed 10/17/2020 99004 Office/Outpatient Established Lo w MDM 20-29 Min Completed 08/08/2020 25678 Office/Outpatient Established Mo d MDM 30-39 Min Completed 11/23/2019 [id number] Mammogram Completed 09/27/2018 [id number] Mammogram Completed 09/27/2018 [id number] Bone Mineral Density Test Comple king 01/10/2018 [id number] Diabetic Retinal Eye Exam Comple king 12/22/2017 [id number] Diabetic Retinal Eye Exam Comple king 08/24/2017 [id number] Mammogram Completed 09/22/2016 [id number] Bone Mineral Density Test Comple king 08/13/2016 [id number] Mammogram Completed 02/05/2015 [id number] Mammogram Completed 12/20/2014 [id number] Colonoscopy Completed 11/29/2014 [id number] Mammogram Completed 02/01/2014 [id number] Mammogram Completed 02/01/2014 [id number] Bone Mineral Density Test Comple king 01/25/2013 [id number] Mammogram Completed 01/13/2012 [id number] Mammogram Completed 01/13/2012 [id number] Bone Mineral Density Test Comple king 12/11/2010 [id number] Mammogram Completed 12/25/2009 [id number] Bone Mineral Density Test Comple king 10/26/2007 [id number] Colonoscopy Completed 07/13/2003 [id number] Mammogram Completed Medical Devices Description No Information Available Encounters Type Date Location Provider Dx Diagnosis Office Visit 01/07/2021 2:45p [facility] Borges M.D. N76.0 Acute vaginitis F41.9 Anxiety disorder, unspecifie d G25.81 Restless legs syndrome E87.1 Hypo-osmolality and hyponatr emia I10 Essential (primary) hyperten jana K59.00 Constipation, unspecified K22.70 Enriquez's esophagus without dysplasia Office Visit 12/17/2020 1:00p [facility] PNikaCNika Borges M.D. N76.0 Acute vaginitis F41.9 Anxiety disorder, unspecifie d E87.1 Hypo-osmolality and hyponatr emia I10 Essential (primary) hyperten jana K59.00 Constipation, unspecified K22.70 Enriquez's esophagus without dysplasia G25.81 Restless legs syndrome Office Visit 12/04/2020 8:45a [facility] N76.0 Acute vaginitis F41.9 Anxiety disorder, unspecifie d I10 Essential (primary) hyperten jana E87.1 Hypo-osmolality and hyponatr emia K59.00 Constipation, unspecified K22.70 Enriquez's esophagus without dysplasia E78.00 Pure hypercholesterolemia, u nspecified R73.09 Other abnormal glucose G25.81 Restless legs syndrome Office Visit 10/17/2020 1:[facility]p [facility] N76.0 Acute vaginitis F41.9 Anxiety disorder, unspecifie d Office Visit 08/08/2020 8:30a [facility] I10 Essential (primary) hyperten jana [...] 8:00 am - [facility] 01/28/2021 - Marina Borges M.D.* I10 [...]
--- OUTSIDE RECORDS SUMMARY | 2021-03-06 06:16 | CCD | Continuity of Care Document ---
Author Author Richa ESCALERA Organization Unknown Address [address] [place] [address] Phone [phone] Care Team Providers Care Customer Experience Retail Clerk Name Role Phone Marina Borges MD [facility] [phone] Problems Description No Information Available Social History [...] SIG Qnty Indications Ordering Provide r Date Trimo-Syed 0.025-0.01% Gel use vaginally as directed 113.400gm N76.0 Sugar Escalera MD 12/10/2020 Metronidazole 500mg Tablets one tab by mouth twice a day x 7 days 14tabs N76.0 Sugar Escalera MD Metronidazole 500mg Tablets one tab by mouth twice a day x 7 days 14tabs N76.0 Sugar Escalera MD Vitamin B12 TR 1000mcg Tablets ER Unknown Fish Oil 1000mg Capsules Unknown Magnesium 500mg Tablets 1 Tab Daily Unknown Calcium Citrate + D3 [id number]-Cuuk Tablets Unknown Potassium Chloride ER 10Meq Capsules [...] 1 Tab Da adithya Unknown Saline Nasal [place] 0.65% Solution Unknown Coq10 200mg Capsules Every Da y Unknown Multivitamin Adult Tablets 1 by mouth every day Unknown Immunizations Description No Information Available Vital Signs Date Vital Result Comment 05/22/2020 7:25am BP Systolic 162 mmHg BP Diastolic 78 mmHg Height 59.50 inches 4'11.50" Weight 117.00 lb BMI (Body Mass Index) 23.2 kg/m2 BSA (Body Surface Area) 1.48 m2 Results Description No Information Available Procedures Date Code Description Status 12/10/2020 89840 Office/Outpatient Established w [facility] 20-29 Min Completed 12/10/2020 32167 Irrigation Of Vagina And/Or Appl ication Of Medicament Completed 11/27/2020 34349 Office/Outpatient Established Lo w [facility] 20-29 Min Completed 11/19/2020 58166 Pessary Fitting & In sertion Of Pessary/Intravaginal Support Constanza Completed 09/25/2020 63773 Office/Outpatient Established w [facility] 20-29 Min Completed Medical Devices Description No Information Available Encounters Type Date Location Provider Dx Diagnosis Office Visit 12/10/2020 11:00a [facility] canoe inspector final Sugar Escalera MD N7 6.0 Acute vaginitis N81.11 Cystocele, midline N81.6 Rectocele 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 Office Visit 11/27/2020 2:15p [facility] canoe inspector final Sugar Escalera MD N7 6.0 Acute vaginitis N81.11 Cystocele, midline N81.6 Rectocele Office Visit 09/25/2020 2:00p [facility] canoe inspector final Sugar Escalera MD N7 6.0 Acute vaginitis Assessments Date Code Description Provider 12/10/2020 N76.0 Acute vaginitis Sugar Escalera 12/10/2020 [...] Escalera MD 11/19/2020 N95.2 Postmenopausal atrophic vaginiti Sugar Angelo MD 09/25/2020 N76.0 Acute vaginitis Sugar Escalera Plan of Treatment No Information Available Functional Status Description No Information Available Mental Status Description No Information Available Referrals Description No Information Available
--- OUTSIDE RECORDS SUMMARY | 2021-03-06 06:16 | CCD | Continuity of Care Document ---
Author Author Richa Borges M.D. Organization Unknown Address [address] [facility] [address] [place] [address] Phone [phone] Care Team Providers Care Broadcast Maintenance Engineer Name Role Phone Marina Borges MD [facility] [phone] Farrah Henderson MD [facility] [phone] [facility] [phone] [facility] [phone] Oanh Melvin MD [facility] [phone] Samy Cardoza MD [facility] [phone] Ry Benitez DO [facility] [phone] Rama Shelton [facility] [phone] Problems Active Problems Provider Date Enriquez's esophagus [...] Borges M.D. 06/29/2013 Calcium Citrate + D [id number]-Azsn Tablets 1 po qd 60tabs Marina Borges M.D. 11/14 Multivital Tablets 1 po qd Marina Borges M.D. 01/25/2012 Fish Oil Double Strength 1200mg Ca psules 1 po qd Marina Borges M.D. 01/25/20 12 Co Q10 200mg Capsules 1 by mouth every day Marina Borges M.D. 01/25/20 12 Saline Nasal [place] 0.65% Solution 6-8x/d as directed Marina Borges [...] CPT Code Status Date Vaccine Lot # [id number] Given 02/13/2020 Influenza Vaccin e Quadrivalent Preser/Antibiotic Free Im Use [id number] 88875 Given 02/16/2019 Influenza Vaccin e Quadrivalent Preser/Antibiotic Free Im Use 122135 93157 Given 02/24/2018 Influenza Virus Vaccine, Quadrivalent (Cciiv4), Derived From 8 Given 2017 Influenza Vaccin e Quadrivalent Preser/Antibiotic Free Im Use [id number] U-PneuC Given 02/11/2017 Prevnar 13 75239 Given 08/11/2016 Adacel- Tetanus Diphtheria P ertussis (Age64 & Under) [id number] Q2037 Given 03/10/2016 Fluvirin Virus Vaccine 49477 01 Q2037 Given 04/04/2015 Fluvirin Virus Vaccine 30121 01 Q2037 Given 03/01/2014 Fluvirin Virus Vaccine 40449 21 Q2037 Given 03/28/2013 Fluvirin Virus Vaccine 73155 01 Q2037 Given 02/23/2012 Fluvirin Virus Vaccine 54423 01 50129 Given 01/25/2012 Pneumovax 23 [id number] Q2037 Given 03/10/2011 Fluvirin Virus Vaccine 30972 Given 02/17/2010 Influenza Virus Vaccine 59260 Refused 08/11/2018 Zoster Vaccine 30381 Refused 08/10/2017 Zoster Vaccine Vital Signs Date [...] Note Laboratory test finding 01/28/2021 vanessa Gambino Telegraphic Typewriter Mechanic: Dr Michael Bullock [place] [id number] [phone] Vitamin D 25-Hydroxy <pending> Basic Metabolic Panel 01/28/2021 [facility], Telegraphic Typewriter Mechanic: Dr Michael Bullock [place] [id number] [phone] Glucose 137 mg/dL High 74 - 99 [...] mL/min >60 2 Basic Metabolic Panel 01/15/2021 [facility], Telegraphic Typewriter Mechanic: Dr Michael Bullock [place], [place] [id number] [phone] Glucose 97 mg/dL 74 - 99 3 [...] mL/min >60 4 Basic Metabolic Panel 01/07/2021 [facility], Telegraphic Typewriter Mechanic: Dr [place], [place] [id number] [phone] Glucose 132 mg/dL High 74 - 99 [...] mL/min >60 6 Basic Metabolic Panel 12/17/2020 [facility], Telegraphic Typewriter Mechanic: [place] [address] [phone] Glucose 148 mg/dL High 74 - 99 [...] mL/min >60 8 Laboratory test finding 12/17/2020 [facility] [address] [place], [place] [id number] [phone] Genital Culture FULL REPORT IN L <SEE NOTE> Normal 9 Comprehensive Chem Profile 12/03/2020 [facility], Telegraphic Typewriter Mechanic: [place] [address] [phone] Glucose 104 mg/dL High 74 - 99 [...] mL/min >60 12 Ua Dipstick Only 12/03/2020 [facility] , Telegraphic Typewriter Mechanic: [place] [address] [phone] Urine Color YELLOW Yellow Urine Appearance CLOUDY Abnormal Clear Urine PH 8.0 units 5.0 - 9.0 Urine Specific [place] 1.010 1.005 - 1.030 Urine Leukocytes LARGE Abnormal Negative Urine Blood NEGATIVE Negative Urine Protein NEGATIVE Negative -Trace Urine Glucose NEGATIVE mg/dL Negative Urine Nitrite NEGATIVE Negative Urine Ketone NEGATIVE mg/dL Negative Urine Bilirubin NEGATIVE Negative Urine Urobilinogen 0.2 mg/dL 0.2 - 1.0 Laboratory test finding 12/03/2020 [facility], Telegraphic Typewriter Mechanic: Dr Michael Bullock [place] [id number] [phone] Thyroid Stimulating Hormone 2.77 uIU/mL 0.3 6 - 3.74 Lipid Profile 12/03/2020 [facility] , Telegraphic Typewriter Mechanic: Dr Michael Bullock [place] [id number] [phone] Cholesterol 166 mg/dL 131 - 200 Triglycerides 44 mg/dL 30 - 150 HDL Cholesterol 111 mg/dL High 35 - 60 LDL (Calculated) 46 CALC Low 50 - 159 Laboratory test finding 12/03/2020 [facility] Telegraphic Typewriter Mechanic: Dr Michael Bullock [place] [id number] [phone] Magnesium 1.8 mg/dL 1.8 - 2.4 Creatine Kinase(CK) 88 U/L 26 - 192 Complete Blood Count 12/03/2020 [facility], Telegraphic Typewriter Mechanic: [place] [address] [phone] WBC 6.5 x10*3/UL 4.1 - 10.9 RBC [...] [facility] [address] [place], [place] [address] [phone] Dexa/Bone Density <pending> 3D Bi-Lateral Mammogram <pending> Laboratory test finding 10/17/2020 [facility] [address] [place] [address] [phone] Genital Culture FULL REPORT IN L <SEE NOTE> Normal 13 Basic Metabolic Panel 08/07/2020 [facility] Telegraphic Typewriter Mechanic: [place] [address] [phone] Glucose 104 mg/dL High 74 - 99 [...] 60 mL/min >60 16 Lipid Profile 08/07/2020 [facility] Telegraphic Typewriter Mechanic: [place] [address] [phone] Cholesterol 212 mg/dL High 131 - 200 [...] LITTLE GFR LEFT ESRD GFR <15 ON MITER SAW OPERATOR 3 100-125 mg/dL PRE-DIABET ES/FASTING >126 mg/dL DIABETES/FASTING 4 CHRONIC KIDNEY DISEASE STAGI NG PER NKF STAGE I & II GFR >= 60 NORMAL TO MILDLY DECREASED STAGE III GFR 30-59 MODERATELY DECREASED STAGE IV GFR 15-29 SEVERELY DECREASED STAGE V GFR <15 VERY LITTLE GFR LEFT ESRD GFR <15 ON MITER SAW OPERATOR 5 100-125 mg/dL PRE-DIABET ES/FASTING >126 mg/dL DIABETES/FASTING 6 CHRONIC KIDNEY DISEASE STAGI NG PER NKF STAGE I & II GFR >= 60 NORMAL TO MILDLY DECREASED STAGE III GFR 30-59 MODERATELY DECREASED STAGE IV GFR 15-29 SEVERELY DECREASED STAGE V GFR <15 VERY LITTLE GFR LEFT ESRD GFR <15 ON MITER SAW OPERATOR 7 100-125 mg/dL PRE-DIABET ES/FASTING >126 mg/dL DIABETES/FASTING 8 CHRONIC KIDNEY DISEASE STAGI NG PER NKF STAGE I & II GFR >= 60 NORMAL TO MILDLY DECREASED STAGE III GFR 30-59 MODERATELY DECREASED STAGE IV GFR 15-29 SEVERELY DECREASED STAGE V GFR <15 VERY LITTLE GFR LEFT ESRD GFR <15 ON MITER SAW OPERATOR 9 FULL REPORT IN LAB NOTES [...] LITTLE GFR LEFT ESRD GFR <15 ON MITER SAW OPERATOR 13 FULL REPORT IN LAB NOTES [...] LITTLE GFR LEFT ESRD GFR <15 ON MITER SAW OPERATOR Procedures Date Code Description Status 01/07/2021 27620 Office/Outpatient Established Mo d MDM 30-39 Min Completed 12/17/2020 43272 Office/Outpatient Established Mo d MDM 30-39 Min Completed 12/17/2020 [id number] Bone Mineral Density Test Comple king 12/04/2020 83981 Office/Outpatient Established Mo d MDM 30-39 Min Completed 11/25/2020 92559052 Mammogram Completed 10/17/2020 44013 Office/Outpatient Established Lo w MDM 20-29 Min Completed 08/08/2020 81234 Office/Outpatient Established Mo d MDM 30-39 Min Completed 11/23/2019 42353853 Mammogram Completed 09/27/2018 46598566 Mammogram Completed 09/27/2018 494452791 Bone Mineral Density Test Comple king 01/10/2018 705616720 Diabetic Retinal Eye Exam Comple king 12/22/2017 776918166 Diabetic Retinal Eye Exam Comple king 08/24/2017 [id number] Mammogram Completed 09/22/2016 446537610 Bone Mineral Density Test Comple king 08/13/2016 03076762 Mammogram Completed 02/05/2015 56731150 Mammogram Completed 12/20/2014 [id number] Colonoscopy Completed 11/29/2014 [id number] Mammogram Completed 02/01/2014 [id number] Mammogram Completed 02/01/2014 974178784 Bone Mineral Density Test Comple king 01/25/2013 17946864 Mammogram Completed 01/13/2012 [id number] Mammogram Completed 01/13/2012 739065691 Bone Mineral Density Test Comple king 12/11/2010 [id number] Mammogram Completed 12/25/2009 [id number] Bone Mineral Density Test Comple king 10/26/2007 68768533 Colonoscopy Completed 07/13/2003 85967942 Mammogram Completed Medical Devices Description No Information Available Encounters Type Date Location Provider Dx Diagnosis Office Visit 01/07/2021 2:45p [facility] Borges M.D. N76.0 Acute vaginitis F41.9 Anxiety disorder, unspecifie d G25.81 Restless legs syndrome E87.1 Hypo-osmolality and hyponatr emia I10 Essential (primary) hyperten jana K59.00 Constipation, unspecified K22.70 Enriquez's esophagus without dysplasia Office Visit 12/17/2020 1:00p [facility] PNikaCNika Borges M.D. N76.0 Acute vaginitis F41.9 Anxiety disorder, unspecifie d E87.1 Hypo-osmolality and hyponatr emia I10 Essential (primary) hyperten jana K59.00 Constipation, unspecified K22.70 Enriquez's esophagus without dysplasia G25.81 Restless legs syndrome Office Visit 12/04/2020 8:45a [facility] N76.0 Acute vaginitis F41.9 Anxiety disorder, unspecifie d I10 Essential (primary) hyperten jana E87.1 Hypo-osmolality and hyponatr emia K59.00 Constipation, unspecified K22.70 Enriquez's esophagus without dysplasia E78.00 Pure hypercholesterolemia, u nspecified R73.09 Other abnormal glucose G25.81 Restless legs syndrome Office Visit 10/17/2020 1:30p [facility] N76.0 Acute vaginitis F41.9 Anxiety disorder, unspecifie d Office Visit 08/08/2020 8:30a [facility] I10 Essential (primary) hyperten jana [...] M.D. 01/07/2021 G25.81 Restless legs syndrome Marina Bogres M.D. 01/07/2021 E87.1 Hypo-osmolality and hyponatremia Marina Borges M.D. 01/07/2021 I10 Essential (primary) hypertension Marina Borges M.D. 01/07/2021 K59.00 Constipation, unspecified Marina Borges M.D. 01/07/2021 K22.70 Enriquez's esophagus without dysp lasia Marina Borges M.D. 12/17/2020 N76.0 Acute vaginitis Marina conrteras M.D. 12/17/2020 F41.9 Anxiety disorder, unspecified Nasreen [...] 8:00 am - [facility] 01/28/2021 - Marina [...]
--- OUTSIDE RECORDS SUMMARY | 2021-03-06 06:16 | CCD | Continuity of Care Document ---
Author Author Richa Borges M.D. Organization Unknown Address [address] [facility] [address] [place] [address] Phone [phone] Care Team Providers Care Senior Drupal Developer Name Role Phone Marina Borges MD [facility] [phone] Farrah Henderson MD [facility] [phone] [facility] [phone] [facility] [phone] Oanh Melvin MD [facility] [phone] Samy Cardoza MD [facility] [phone] Ry Benitez DO [facility] [phone] Rama Shelton [facility] [phone] Problems Active Problems Provider Date Enriquez's esophagus [...] Borges M.D. 06/29/2013 Calcium Citrate + D [id number]-Lilm Tablets 1 po qd 60tabs Marina Borges M.D. 11/14 Multivital Tablets 1 po qd Marina Borges M.D. 01/25/2012 Fish Oil Double Strength 1200mg Ca psules 1 po qd Marina Borges M.D. 01/25/20 12 Co Q10 200mg Capsules 1 by mouth every day Marina Borges M.D. 01/25/20 12 Saline Nasal [place] 0.65% Solution 6-8x/d as directed Marina Borges M.D. 04/29/20 11 Levocetirizine Dihydrochloride 5mg Tablets take one tablet by mouth every zhen Marnia Borges M.D. History Medications Fluconazole 100mg Tablets [...] CPT Code Status Date Vaccine Lot # [id number] Given 02/13/2020 Influenza Vaccin e Quadrivalent Preser/Antibiotic Free Im Use 894201 89061 Given 02/16/2019 Influenza Vaccin e Quadrivalent Preser/Antibiotic Free Im Use 616013 17378 Given 02/24/2018 Influenza Virus Vaccine, Quadrivalent (Cciiv4), Derived From 1 Given 2017 Influenza Vaccin e Quadrivalent Preser/Antibiotic Free Im Use [id number] U-PneuC Given 02/11/2017 Prevnar 13 92181 Given 08/11/2016 Adacel- Tetanus Diphtheria P ertussis [id number] Q2037 Given 03/10/2016 Fluvirin Virus Vaccine 37433 01 Q2037 Given 04/04/2015 Fluvirin Virus Vaccine 75450 01 Q2037 Given 03/01/2014 Fluvirin Virus Vaccine 59307 21 Q2037 Given 03/28/2013 Fluvirin Virus Vaccine 56185 01 Q2037 Given 02/23/2012 Fluvirin Virus Vaccine 76013 01 69656 Given 01/25/2012 Pneumovax 23 [id number] Q2037 Given 03/10/2011 Fluvirin Virus Vaccine 30601 Given 02/17/2010 Influenza Virus Vaccine 49632 Refused 08/11/2018 Zoster Vaccine 26221 Refused 08/10/2017 Zoster Vaccine Vital Signs Date [...] Laboratory test finding 01/28/2021 Enedelia saab, vanessa Floor Manager: [place] [address] [phone] Vitamin D 25-Hydroxy <pending> Basic Metabolic Panel 01/28/2021 [facility], Floor Manager: [place] [address] [phone] Glucose 137 mg/dL High 74 - 99 [...] [facility], Floor Manager: [place] [address] [phone] Glucose 97 mg/dL 74 - 99 3 [...] [facility], Floor Manager: Dr Michael [place] [address] [phone] Glucose 132 mg/dL High 74 - 99 [...] [facility], Floor Manager: [place] [address] [phone] Glucose 148 mg/dL High 74 - 99 [...] mL/min >60 8 Laboratory test finding 12/17/2020 [facility] [address] [place] [address] [phone] Genital Culture FULL REPORT IN L <SEE NOTE> Normal 9 Comprehensive Chem Profile 12/03/2020 [facility], vanessa Floor Manager: [place] [address] [phone] Glucose 104 mg/dL High 74 - 99 [...] mL/min >60 12 Ua Dipstick Only 12/03/2020 [facility] Floor Manager: [place] [address] [phone] Urine Color YELLOW Yellow Urine Appearance CLOUDY Abnormal Clear Urine PH 8.0 units 5.0 - 9.0 Urine Specific [place] 1.010 1.005 - 1.030 Urine Leukocytes LARGE Abnormal Negative Urine Blood NEGATIVE Negative Urine Protein NEGATIVE Negative -Trace Urine Glucose NEGATIVE mg/dL Negative Urine Nitrite NEGATIVE Negative Urine Ketone NEGATIVE mg/dL Negative Urine Bilirubin NEGATIVE Negative Urine Urobilinogen 0.2 mg/dL 0.2 - 1.0 Laboratory test finding 12/03/2020 [facility], Floor Manager: [place] [address] [phone] Thyroid Stimulating Hormone 2.77 uIU/mL 0.3 6 - 3.74 Lipid Profile 12/03/2020 [facility] , Floor Manager: [place] [address] [phone] Cholesterol 166 mg/dL 131 - 200 Triglycerides 44 mg/dL 30 - 150 HDL Cholesterol 111 mg/dL High 35 - 60 LDL (Calculated) 46 CALC Low 50 - 159 Laboratory test finding 12/03/2020 [facility] Floor Manager: [place] [address] [phone] Magnesium 1.8 mg/dL 1.8 - 2.4 Creatine Kinase(CK) 88 U/L 26 - 192 Complete Blood Count 12/03/2020 [facility], Floor Manager: [place] [address] [phone] WBC 6.5 x10*3/UL 4.1 - 10.9 RBC [...] [facility] [address] [place] [address] [phone] Dexa/Bone Density <pending> 3D Bi-Lateral Mammogram <pending> Laboratory test finding 10/17/2020 [facility] [address] [place] [address] [phone] Genital Culture FULL REPORT IN L <SEE NOTE> Normal 13 Basic Metabolic Panel 08/07/2020 [facility] Floor Manager: Dr Michael Bullock [place], [place] [id number] [phone] Glucose 104 mg/dL High 74 - 99 [...] 60 mL/min >60 16 Lipid Profile 08/07/2020 [facility] Floor Manager: [place] [address] [phone] Cholesterol 212 mg/dL High 131 - 200 [...] LITTLE GFR LEFT ESRD GFR <15 ON DIORAMA MODEL MAKER 3 100-125 mg/dL PRE-DIABET ES/FASTING >126 mg/dL DIABETES/FASTING 4 CHRONIC KIDNEY DISEASE STAGI NG PER NKF STAGE I & II GFR >= 60 NORMAL TO MILDLY DECREASED STAGE III GFR 30-59 MODERATELY DECREASED STAGE IV GFR 15-29 SEVERELY DECREASED STAGE V GFR <15 VERY LITTLE GFR LEFT ESRD GFR <15 ON DIORAMA MODEL MAKER 5 100-125 mg/dL PRE-DIABET ES/FASTING >126 mg/dL DIABETES/FASTING 6 CHRONIC KIDNEY DISEASE STAGI NG PER NKF STAGE I & II GFR >= 60 NORMAL TO MILDLY DECREASED STAGE III GFR 30-59 MODERATELY DECREASED STAGE IV GFR 15-29 SEVERELY DECREASED STAGE V GFR <15 VERY LITTLE GFR LEFT ESRD GFR <15 ON DIORAMA MODEL MAKER 7 100-125 mg/dL PRE-DIABET ES/FASTING >126 mg/dL DIABETES/FASTING 8 CHRONIC KIDNEY DISEASE STAGI NG PER NKF STAGE I & II GFR >= 60 NORMAL TO MILDLY DECREASED STAGE III GFR 30-59 MODERATELY DECREASED STAGE IV GFR 15-29 SEVERELY DECREASED STAGE V GFR <15 VERY LITTLE GFR LEFT ESRD GFR <15 ON DIORAMA MODEL MAKER 9 FULL REPORT IN LAB NOTES (eC [...] LITTLE GFR LEFT ESRD GFR <15 ON DIORAMA MODEL MAKER 13 FULL REPORT IN LAB NOTES (eC [...] LITTLE GFR LEFT ESRD GFR <15 ON DIORAMA MODEL MAKER Procedures Date Code Description Status 01/28/2021 57668 Office/Outpatient Established Mo d MDM 30-39 Min Completed 01/07/2021 14144 Office/Outpatient Established Mo d MDM 30-39 Min Completed 12/17/2020 19168 Office/Outpatient Established Mo d MDM 30-39 Min Completed 12/17/2020 [id number] Bone Mineral Density Test Comple king 12/04/2020 67225 Office/Outpatient Established Mo d MDM 30-39 Min Completed 11/25/2020 [id number] Mammogram Completed 10/17/2020 48754 Office/Outpatient Established Lo w MDM 20-29 Min Completed 08/08/2020 85900 Office/Outpatient Established Mo d MDM 30-39 Min Completed 11/23/2019 [id number] Mammogram Completed 09/27/2018 [id number] Mammogram Completed 09/27/2018 [id number] Bone Mineral Density Test Comple king 01/10/2018 [id number] Diabetic Retinal Eye Exam Comple king 12/22/2017 [id number] Diabetic Retinal Eye Exam Comple king 08/24/2017 [id number] Mammogram Completed 09/22/2016 [id number] Bone Mineral Density Test Comple king 08/13/2016 [id number] Mammogram Completed 02/05/2015 [id number] Mammogram Completed 12/20/2014 [id number] Colonoscopy Completed 11/29/2014 [id number] Mammogram Completed 02/01/2014 [id number] Mammogram Completed 02/01/2014 [id number] Bone Mineral Density Test Comple [facility] 01/25/2013 [id number] Mammogram Completed 01/13/2012 [id number] Mammogram Completed 01/13/2012 [id number] Bone Mineral Density Test Comple king 12/11/2010 [id number] Mammogram Completed 12/25/2009 [id number] Bone Mineral Density Test Comple king 10/26/2007 [id number] Colonoscopy Completed 07/13/2003 [id number] Mammogram Completed Medical Devices Description No Information Available Encounters Type Date Location Provider Dx Diagnosis Office Visit 01/28/2021 [facility]p [facility] I10 Essential (primary) hyperten jana E87.1 Hypo-osmolality and hyponatr emia N76.0 Acute vaginitis N81.10 Cystocele, unspecified F41.9 Anxiety disorder, unspecifie d K22.70 Enriquez's esophagus without dysplasia M81.0 Age-related osteoporosis w/o current pathological fracture Office Visit 01/07/2021 2:45p [facility] N76.0 Acute vaginitis F41.9 Anxiety disorder, unspecifie d G25.81 Restless legs syndrome E87.1 Hypo-osmolality and hyponatr emia I10 Essential (primary) hyperten jana K59.00 Constipation, unspecified K22.70 Enriquez's esophagus without dysplasia Office Visit 12/17/2020 1:00p [facility] N76.0 Acute vaginitis F41.9 Anxiety disorder, unspecifie d E87.1 Hypo-osmolality and hyponatr emia I10 Essential (primary) hyperten jana K59.00 Constipation, unspecified K22.70 Enriquez's esophagus without dysplasia G25.81 Restless legs syndrome Office Visit 12/04/2020 8:45a [facility] N76.0 Acute vaginitis F41.9 Anxiety disorder, unspecifie d I10 Essential (primary) hyperten jana E87.1 Hypo-osmolality and hyponatr emia K59.00 Constipation, unspecified K22.70 Enriquez's esophagus without dysplasia E78.00 Pure hypercholesterolemia, u nspecified R73.09 Other abnormal glucose G25.81 Restless legs syndrome Office Visit 10/17/2020 1:30p [facility] N76.0 Acute vaginitis F41.9 Anxiety disorder, unspecifie d Office Visit 08/08/2020 8:30a [facility] I10 Essential (primary) hyperten jana [...] 8:00 am - Marina Borges M.D. at [facility] 01/28/2021 - Marina Borges M.D.* [...]
--- OUTSIDE RECORDS SUMMARY | 2021-03-06 06:17 | CCD | Continuity of Care Document ---
Author Author Richa Borges M.D. Organization Unknown Address [address] [facility] [address] [place] [address] Phone [phone] Care Team Providers Care Proof Plate Maker Name Role Phone Marina Borges MD AUTM [phone] Farrah [place] MD AUTM [phone] [facility] AUTM [phone] [facility] AUTM [phone] Oanh Melvin MD AUTM [phone] Samy Cardoza MD AUTM [phone] Ry Benitez DO AUTM [phone] Rama Shelton AUTM [phone] Problems Active Problems Provider Date Enriquez's esophagus [...] Borges M.D. 06/29/2013 Calcium Citrate + D [id number] Tablets 1 po qd 60tabs Marina Borges M.D. 11/14 Multivital Tablets 1 po qd Marina Borges M.D. 01/25/2012 Fish Oil Double Strength 1200mg Ca psules 1 po qd Marina Borges M.D. 01/25/20 12 Co Q10 200mg Capsules 1 by mouth every day Marina Borges M.D. 01/25/20 12 Saline Nasal [place] 0.65% Solution 6-8x/d as directed Marina Borges [...] CPT Code Status Date Vaccine Lot # [id number] Given 02/13/2020 Influenza Vaccin e Quadrivalent Preser/Antibiotic Free Im Use 200535 43023 Given 02/16/2019 Influenza Vaccin e Quadrivalent Preser/Antibiotic Free Im Use [id number] 22116 Given 02/24/2018 Influenza Virus Vaccine, Quadrivalent (Cciiv4), Derived From 4 Given 2017 Influenza Vaccin e Quadrivalent Preser/Antibiotic Free Im Use [id number] U-PneuC Given 02/11/2017 Prevnar 13 99224 Given 08/11/2016 Adacel- Tetanus Diphtheria P ertussis (Age64 & Under) [id number] Q2037 Given 03/10/2016 Fluvirin Virus Vaccine 53621 01 Q2037 Given 04/04/2015 Fluvirin Virus Vaccine 76383 01 Q2037 Given 03/01/2014 Fluvirin Virus Vaccine 50016 21 Q2037 Given 03/28/2013 Fluvirin Virus Vaccine 61781 01 Q2037 Given 02/23/2012 Fluvirin Virus Vaccine 25237 01 23238 Given 01/25/2012 Pneumovax 23 [id number] Q2037 Given 03/10/2011 Fluvirin Virus Vaccine 40905 Given 02/17/2010 Influenza Virus Vaccine 75976 Refused 08/11/2018 Zoster Vaccine 25241 Refused 08/10/2017 Zoster Vaccine Vital Signs Date Vital Result Comment 01/07/2021 2:40pm BP Systolic 132 mmHg RT Arm BP Diastolic 86 mmHg RT Arm Heart Rate 80 /min Height 60.25 inches 5'0.25" Weight 116.00 lb BMI (Body Mass Index) 22.5 kg/m2 12/17/2020 1:01pm BP Systolic 142 mmHg RT Arm BP Diastolic 80 mmHg RT Arm Heart Rate 88 /min Height 60.25 inches 5'0.25" Weight 115.00 lb BMI (Body Mass Index) 22.3 kg/m2 Results Test Acquired Date Facility Test Result H/L Range Note Basic Metabolic Panel 01/07/2021 [facility] Cullet Crusher: Dr Michael Bullock [place] [id number] [phone] Glucose 132 mg/dL High 74 - 99 1 BUN [...] 60 mL/min >60 2 Basic Metabolic Panel 12/17/2020 [facility] Cullet Crusher: Dr Michael Bullock [place] [id number] [phone] Glucose 148 mg/dL High 74 - 99 3 BUN [...] 60 mL/min >60 4 Laboratory test finding 12/17/2020 [facility] [address] [place] [address] [phone] Genital Culture FULL REPORT IN L <SEE NOTE> Normal 5 Complete Blood Count 12/03/2020 [facility] Cullet Crusher: [place] [address] [phone] WBC 6.5 x10*3/UL 4.1 - 10.9 RBC [...] 2.0 - 7.8 Laboratory test finding 12/03/2020 [facility] Cullet Crusher: [place] [address] [phone] Magnesium 1.8 mg/dL 1.8 - 2.4 Creatine Kinase(CK) 88 U/L 26 - 192 Comprehensive Chem Profile 12/03/2020 [facility] Cullet Crusher: [place] [address] [phone] Glucose 104 mg/dL High 74 - 99 6 BUN 8 mg/dL 7 - 18 Creatinine 0.7 mg/dL 0.6 - 1.3 Sodium 134 mEq/L Low 136 - 145 7 Potassium 3.9 mEq/L 3.5 - 5.1 Chloride [...] >60 GFR >= 60 mL/min >60 8 Lipid Profile 12/03/2020 [facility] Cullet Crusher: Dr [place] [address] [phone] Cholesterol 166 mg/dL 131 - 200 Triglycerides 44 mg/dL 30 - 150 HDL Cholesterol 111 mg/dL High 35 - 60 LDL (Calculated) 46 CALC Low 50 - 159 Laboratory test finding 12/03/2020 [facility] Cullet Crusher: [place] [address] [phone] Thyroid Stimulating Hormone 2.77 uIU/mL 0.3 6 - 3.74 Ua Dipstick Only 12/03/2020 [facility] Cullet Crusher: Dr Michael Bullock [place], [place] [id number] [phone] Urine Color YELLOW Yellow Urine Appearance CLOUDY Abnormal Clear Urine PH 8.0 units 5.0 - 9.0 Urine Specific [place] 1.010 1.005 - 1.030 Urine Leukocytes LARGE Abnormal Negative Urine Blood NEGATIVE Negative Urine Protein NEGATIVE Negative -Trace Urine Glucose NEGATIVE mg/dL Negative Urine Nitrite NEGATIVE Negative Urine Ketone NEGATIVE mg/dL Negative Urine Bilirubin NEGATIVE Negative Urine Urobilinogen 0.2 mg/dL 0.2 - 1.0 Xray 11/25/2020 [facility] [address] [place] [address] [phone] Dexa/Bone Density <pending> 3D Bi-Lateral Mammogram <pending> Laboratory test finding 10/17/2020 [facility] [address] [place] [address] [phone] Genital Culture FULL REPORT IN L <SEE NOTE> Normal 9 Basic Metabolic Panel 08/07/2020 [facility] Cullet Crusher: [place] [address] [phone] Glucose 104 mg/dL High 74 - 99 10 BUN 11 mg/dL 7 - 18 Creatinine 0.7 mg/dL 0.6 - 1.3 Sodium 135 mEq/L Low 136 - 145 11 Potassium 3.9 mEq/L 3.5 - 5.1 Chloride 96 mEq/L Low 98 - 107 Carbon Dioxide 27 mEq/L 21 - 32 Calcium 9.1 mg/dL 8.5 - 10.1 GFR >= 60 mL/min >60 GFR >= 60 mL/min >60 12 Lipid Profile 08/07/2020 [facility] Cullet Crusher: [place] [address] [phone] Cholesterol 212 mg/dL High 131 - 200 [...] LITTLE GFR LEFT ESRD GFR <15 ON [employer]ACLE DAT[employer]ASE CONSULTANT 3 100-125 mg/dL PRE-DIABET ES/FASTING >126 mg/dL DIABETES/FASTING 4 CHRONIC KIDNEY DISEASE STAGI NG PER NKF STAGE I & II GFR >= 60 NORMAL TO MILDLY DECREASED STAGE III GFR 30-59 MODERATELY DECREASED STAGE IV GFR 15-29 SEVERELY DECREASED STAGE V GFR <15 VERY LITTLE GFR LEFT ESRD GFR <15 ON [employer]ACLE DAT[employer]ASE CONSULTANT 5 FULL REPORT IN LAB NOTES (eC W and [facility]). NORMAL LIYAH PRESENT ORGANISM 1: YEAST LIKE ORGANISM QUANTITY OF GROWTH FEW ORGANISM 1: YEAST LIKE ORGANISM 6 100-125 mg/dL PRE-DIABET ES/FASTING >126 mg/dL DIABETES/FASTING 7 NOTE: LYTES VERIFIED 8 CHRONIC KIDNEY DISEASE STAGI NG PER NKF STAGE I & II GFR >= 60 NORMAL TO MILDLY DECREASED STAGE III GFR 30-59 MODERATELY DECREASED STAGE IV GFR 15-29 SEVERELY DECREASED STAGE V GFR <15 VERY LITTLE GFR LEFT ESRD GFR <15 ON ORACLE DATABASE CONSULTANT 9 FULL REPORT IN LAB NOTES (eC W and Medent). NORMAL LIYAH PRESENT ORGANISM 1: YEAST LIKE ORGANISM QUANTITY OF GROWTH FEW ORGANISM 1: YEAST LIKE ORGANISM 10 100-125 mg/dL PRE-DIABET ES/FASTING >126 mg/dL DIABETES/FASTING 11 NOTE: RESULT VERIFIED. 12 CHRONIC KIDNEY DISEASE STAGI NG PER NKF STAGE I & II GFR >= 60 NORMAL TO MILDLY DECREASED STAGE III GFR 30-59 MODERATELY DECREASED STAGE IV GFR 15-29 SEVERELY DECREASED STAGE V GFR <15 VERY LITTLE GFR LEFT ESRD GFR <15 ON ORACLE DATABASE CONSULTANT Procedures Date Code Description Status 01/07/2021 69772 Office/Outpatient Established Mo d MDM 30-39 Min Completed 12/17/2020 52890 Office/Outpatient Established Mo d MDM 30-39 Min Completed 12/17/2020 [id number] Bone Mineral Density Test Comple king 12/04/2020 65462 Office/Outpatient Established Mo d MDM 30-39 Min Completed 11/25/2020 [id number] Mammogram Completed 10/17/2020 79524 Office/Outpatient Established Lo w MDM 20-29 Min Completed 08/08/2020 00121 Office/Outpatient Established Mo d MDM 30-39 Min Completed 11/23/2019 [id number] Mammogram Completed 09/27/2018 [id number] Mammogram Completed 09/27/2018 [id number] Bone Mineral Density Test Comple king 01/10/2018 [id number] Diabetic Retinal Eye Exam Comple king 12/22/2017 [id number] Diabetic Retinal Eye Exam Comple king 08/24/2017 [id number] Mammogram Completed 09/22/2016 [id number] Bone Mineral Density Test Comple king 08/13/2016 [id number] Mammogram Completed 02/05/2015 [id number] Mammogram Completed 12/20/2014 [id number] Colonoscopy Completed 11/29/2014 [id number] Mammogram Completed 02/01/2014 [id number] Mammogram Completed 02/01/2014 [id number] Bone Mineral Density Test Comple king 01/25/2013 [id number] Mammogram Completed 01/13/2012 [id number] Mammogram Completed 01/13/2012 [id number] Bone Mineral Density Test Comple king 12/11/2010 [id number] Mammogram Completed 12/25/2009 [id number] Bone Mineral Density Test Comple king 10/26/2007 [id number] Colonoscopy Completed 07/13/2003 [id number] Mammogram Completed Medical Devices Description No Information Available Encounters Type Date Location Provider Dx Diagnosis Office Visit 01/07/2021 2:45p [facility] PNika[facility]ika Borges M.D. N76.0 Acute vaginitis F41.9 Anxiety disorder, unspecifie d G25.81 Restless legs syndrome E87.1 Hypo-osmolality and hyponatr emia I10 Essential (primary) hyperten jana K59.00 Constipation, unspecified K22.70 Enriquez's esophagus without dysplasia Office Visit 12/17/2020 1:00p [facility] N76.0 Acute vaginitis F41.9 Anxiety disorder, unspecifie d E87.1 Hypo-osmolality and hyponatr emia I10 Essential (primary) hyperten jana K59.00 Constipation, unspecified K22.70 Enriquez's esophagus without dysplasia G25.81 Restless legs syndrome Office Visit 12/04/2020 8[facility]a [facility] N76.0 Acute vaginitis F41.9 Anxiety disorder, unspecifie d I10 Essential (primary) hyperten jana E87.1 Hypo-osmolality and hyponatr emia K59.00 Constipation, unspecified K22.70 Enriquez's esophagus without dysplasia E78.00 Pure hypercholesterolemia, u nspecified R73.09 Other abnormal glucose G25.81 Restless legs syndrome Office Visit 10/17/2020 [facility]p [facility] N76.0 Acute vaginitis F41.9 Anxiety disorder, unspecifie d Office Visit 08/08/2020 8:30a [facility] I10 Essential (primary) hyperten jana E78.00 Pure hypercholesterolemia, u nspecified R73.09 Other abnormal glucose F41.9 Anxiety disorder, unspecifie d R00.2 Palpitations K59.00 Constipation, unspecified G25.81 Restless legs syndrome E87.1 Hypo-osmolality and hyponatr emia Assessments Date Code Description Provider 01/07/2021 N76.0 Acute vaginitis Marina contreras M.D. [...] Borges M.D. 12/04/2020 E78.00 Pure hypercholesterolemia, unspe cijanet Borges M.D. 12/04/2020 R73.09 Other abnormal glucose [...] Lab Schedule Plan of Treatment Future Appointment(s):* 01/15/2021 10:10 am - Lab Schedule at [facility] * 01/28/2021 1:45 pm - Marina Borges M.D. at [facility] * 03/11/2021 8:00 am - [facility] 01/07/2021 - Marina Borges M.D.* N76.0 Acute vaginitis * F41.9 Anxiety disorder, unspecified * G25.81 Restless legs syndrome * E87.1 Hypo-osmolality and hyponatremia * I10 Essential (primary) hypertension * K59.00 Constipation, unspecified * K22.70 Enriquez's esophagus without dysplasia * All * New Medication:* Stool Softener 100 mg - 1-2 by mouth every day * Clonazepam 0.5 mg - take 1/2 tablet by mouth twice a day (max 1 daily) * Comments:* 8. Pelvic organ prolapse. She will establish with [facility]ne[facility] end of January.9. Osteoporosis. DEXA reviewed. She is on Calcium and D. Discuss Alendronate which she has been on previously but in the setting of Enriquez's esophagitis consider injectable therapy next visit. Functional Status Description No Information Available Mental Status Description No Information Available Referrals Description No Information Available
--- OUTSIDE RECORDS SUMMARY | 2021-03-06 06:17 | CCD | Continuity of Care Document ---
Author Author Richa Borges M.D. Organization Unknown Address [address] [facility] [address] [place] [address] Phone [phone] Care Team Providers Care Pellet Post Inspector Name Role Phone Marina Borges MD AUTM [phone] Farrah [place] MD AUTM [phone] [facility] AUTM [phone] [facility] AUTM [phone] Oanh Melvin MD AUTM [phone] Samy Cardoza MD AUTM [phone] Ry Benitez DO AUTM [phone] Rama Shelton AUTM [phone] Problems Active Problems Provider Date Enriquez's esophagus [...] Borges M.D. 06/29/2013 Calcium Citrate + D [id number] Tablets 1 po qd 60tabs Marina Borges M.D. 11/14 Multivital Tablets 1 po qd Marina Borges M.D. 01/25/2012 Fish Oil Double Strength 1200mg Ca psules 1 po qd Marina Borges M.D. 01/25/20 12 Co Q10 200mg Capsules 1 by mouth every day Marina Borges M.D. 01/25/20 12 Saline Nasal [place] 0.65% Solution 6-8x/d as directed Marina Borges [...] CPT Code Status Date Vaccine Lot # 45636 Given 02/13/2020 Influenza Vaccin e Quadrivalent Preser/Antibiotic Free Im Use [id number] 13519 Given 02/16/2019 Influenza Vaccin e Quadrivalent Preser/Antibiotic Free Im Use 582520 92439 Given 02/24/2018 Influenza Virus Vaccine, Quadrivalent (Cciiv4), Derived From 0 Given 2017 Influenza Vaccin e Quadrivalent Preser/Antibiotic Free Im Use [id number] U-PneuC Given 02/11/2017 Prevnar 13 88188 Given 08/11/2016 Adacel- Tetanus Diphtheria P ertussis (Age64 & Under) [id number] Q2037 Given 03/10/2016 Fluvirin Virus Vaccine 04273 01 Q2037 Given 04/04/2015 Fluvirin Virus Vaccine 14738 01 Q2037 Given 03/01/2014 Fluvirin Virus Vaccine 98862 21 Q2037 Given 03/28/2013 Fluvirin Virus Vaccine 25725 01 Q2037 Given 02/23/2012 Fluvirin Virus Vaccine 34048 01 37668 Given 01/25/2012 Pneumovax 23 [id number] Q2037 Given 03/10/2011 Fluvirin Virus Vaccine 66817 Given 02/17/2010 Influenza Virus Vaccine 08391 Refused 08/11/2018 Zoster Vaccine 30184 Refused 08/10/2017 Zoster Vaccine Vital Signs Date [...] Note Laboratory test finding 01/28/2021 vanessa Gambino Coat Presser: Dr Michael Bullock [place] [id number] [phone] Vitamin D 25-Hydroxy <pending> Basic Metabolic Panel 01/28/2021 [facility], Coat Presser: Dr Michael Bullock [place] [id number] [phone] Glucose 137 mg/dL High 74 - 99 [...] mL/min >60 2 Basic Metabolic Panel 01/15/2021 [facility], Coat Presser: Dr Michael Bull[place], [place] [id number] [phone] Glucose 97 mg/dL 74 - 99 3 [...] mL/min >60 4 Basic Metabolic Panel 01/07/2021 [facility], Coat Presser: Dr [place], [place] [id number] [phone] Glucose 132 mg/dL High 74 - 99 [...] mL/min >60 6 Basic Metabolic Panel 12/17/2020 [facility], Coat Presser: [place] [address] [phone] Glucose 148 mg/dL High 74 - 99 [...] mL/min >60 8 Laboratory test finding 12/17/2020 [facility] [address] [place], [place] [address] [phone] Genital Culture FULL REPORT IN L <SEE NOTE> Normal 9 Comprehensive Chem Profile 12/03/2020 [facility], Coat Presser: [place] [address] [phone] Glucose 104 mg/dL High 74 - 99 [...] mL/min >60 12 Ua Dipstick Only 12/03/2020 [facility] , Coat Presser: [place] [address] [phone] Urine Color YELLOW Yellow Urine Appearance CLOUDY Abnormal Clear Urine PH 8.0 units 5.0 - 9.0 Urine Specific [place] 1.010 1.005 - 1.030 Urine Leukocytes LARGE Abnormal Negative Urine Blood NEGATIVE Negative Urine Protein NEGATIVE Negative -Trace Urine Glucose NEGATIVE mg/dL Negative Urine Nitrite NEGATIVE Negative Urine Ketone NEGATIVE mg/dL Negative Urine Bilirubin NEGATIVE Negative Urine Urobilinogen 0.2 mg/dL 0.2 - 1.0 Laboratory test finding 12/03/2020 [facility], Coat Presser: Dr Michael Bullock [place] [id number] [phone] Thyroid Stimulating Hormone 2.77 uIU/mL 0.3 6 - 3.74 Lipid Profile 12/03/2020 [facility] , Coat Presser: Dr Michael Bullock [place] [id number] [phone] Cholesterol 166 mg/dL 131 - 200 Triglycerides 44 mg/dL 30 - 150 HDL Cholesterol 111 mg/dL High 35 - 60 LDL (Calculated) 46 CALC Low 50 - 159 Laboratory test finding 12/03/2020 [facility] Coat Presser: Dr Michael Bullock [place] [id number] [phone] Magnesium 1.8 mg/dL 1.8 - 2.4 Creatine Kinase(CK) 88 U/L 26 - 192 Complete Blood Count 12/03/2020 [facility], Coat Presser: [place] [address] [phone] WBC 6.5 x10*3/UL 4.1 - 10.9 RBC [...] [facility] [address] [place], [place] [id number] [phone] Dexa/Bone Density <pending> 3D Bi-Lateral Mammogram <pending> Laboratory test finding 10/17/2020 [facility] [address] [place] [address] [phone] Genital Culture FULL REPORT IN L <SEE NOTE> Normal 13 Basic Metabolic Panel 08/07/2020 [facility] Coat Presser: [place] [address] [phone] Glucose 104 mg/dL High 74 - 99 [...] 60 mL/min >60 16 Lipid Profile 08/07/2020 [facility] Coat Presser: [place] [address] [phone] Cholesterol 212 mg/dL High 131 - 200 [...] LITTLE GFR LEFT ESRD GFR <15 ON CONCR[employer]ODU[employer] MACHINE OPERATOR 3 100-125 mg/dL PRE-DIABET ES/FASTING >126 mg/dL DIABETES/FASTING 4 CHRONIC KIDNEY DISEASE STAGI NG PER NKF STAGE I & II GFR >= 60 NORMAL TO MILDLY DECREASED STAGE III GFR 30-59 MODERATELY DECREASED STAGE IV GFR 15-29 SEVERELY DECREASED STAGE V GFR <15 VERY LITTLE GFR LEFT ESRD GFR <15 ON CONCR[employer]ODU[employer] MACHINE OPERATOR 5 100-125 mg/dL PRE-DIABET ES/FASTING >126 mg/dL DIABETES/FASTING 6 CHRONIC KIDNEY DISEASE STAGI NG PER NKF STAGE I & II GFR >= 60 NORMAL TO MILDLY DECREASED STAGE III GFR 30-59 MODERATELY DECREASED STAGE IV GFR 15-29 SEVERELY DECREASED STAGE V GFR <15 VERY LITTLE GFR LEFT ESRD GFR <15 ON CONCR[employer] MACHINE OPERATOR 7 100-125 mg/dL PRE-DIABET ES/FASTING >126 mg/dL DIABETES/FASTING 8 CHRONIC KIDNEY DISEASE STAGI NG PER NKF STAGE I & II GFR >= 60 NORMAL TO MILDLY DECREASED STAGE III GFR 30-59 MODERATELY DECREASED STAGE IV GFR 15-29 SEVERELY DECREASED STAGE V GFR <15 VERY LITTLE GFR LEFT ESRD GFR <15 ON CONCR[employer]ODU[employer] MACHINE OPERATOR 9 FULL REPORT IN LAB [...] LITTLE GFR LEFT ESRD GFR <15 ON CONCR[employer] MACHINE OPERATOR 13 FULL REPORT IN LAB [...] LITTLE GFR LEFT ESRD GFR <15 ON CONCR[employer]ODU[employer] MACHINE OPERATOR Procedures Date Code Description Status 01/07/2021 97713 Office/Outpatient Established Mo d MDM 30-39 Min Completed 12/17/2020 70008 Office/Outpatient Established Mo d MDM 30-39 Min Completed 12/17/2020 [id number] Bone Mineral Density Test Comple king 12/04/2020 61621 Office/Outpatient Established Mo d MDM 30-39 Min Completed 11/25/2020 [id number] Mammogram Completed 10/17/2020 17111 Office/Outpatient Established Lo w MDM 20-29 Min Completed 08/08/2020 11209 Office/Outpatient Established Mo d MDM 30-39 Min Completed 11/23/2019 [id number] Mammogram Completed 09/27/2018 [id number] Mammogram Completed 09/27/2018 [id number] Bone Mineral Density Test Comple king 01/10/2018 [id number] Diabetic Retinal Eye Exam Comple king 12/22/2017 [id number] Diabetic Retinal Eye Exam Comple king 08/24/2017 [id number] Mammogram Completed 09/22/2016 [id number] Bone Mineral Density Test Comple king 08/13/2016 [id number] Mammogram Completed 02/05/2015 [id number] Mammogram Completed 12/20/2014 [id number] Colonoscopy Completed 11/29/2014 [id number] Mammogram Completed 02/01/2014 [id number] Mammogram Completed 02/01/2014 [id number] Bone Mineral Density Test Comple king 01/25/2013 [id number] Mammogram Completed 01/13/2012 [id number] Mammogram Completed 01/13/2012 [id number] Bone Mineral Density Test Comple king 12/11/2010 [id number] Mammogram Completed 12/25/2009 [id number] Bone Mineral Density Test Comple king 10/26/2007 [id number] Colonoscopy Completed 07/13/2003 [id number] Mammogram Completed Medical Devices Description No Information Available Encounters Type Date Location Provider Dx Diagnosis Office Visit 01/07/2021 2:45p [facility] P.CNika Borges M.D. N76.0 Acute vaginitis F41.9 Anxiety disorder, unspecifie d G25.81 Restless legs syndrome E87.1 Hypo-osmolality and hyponatr emia I10 Essential (primary) hyperten jana K59.00 Constipation, unspecified K22.70 Enriquez's esophagus without dysplasia Office Visit 12/17/2020 1:00p [facility] PNikaCNika Borges M.D. N76.0 Acute vaginitis F41.9 Anxiety disorder, unspecifie d E87.1 Hypo-osmolality and hyponatr emia I10 Essential (primary) hyperten jana K59.00 Constipation, unspecified K22.70 Enriquez's esophagus without dysplasia G25.81 Restless legs syndrome Office Visit 12/04/2020 8[facility]a [facility] N76.0 Acute vaginitis F41.9 Anxiety disorder, unspecifie d I10 Essential (primary) hyperten jana E87.1 Hypo-osmolality and hyponatr emia K59.00 Constipation, unspecified K22.70 Enriquez's esophagus without dysplasia E78.00 Pure hypercholesterolemia, u nspecified R73.09 Other abnormal glucose G25.81 Restless legs syndrome Office Visit 10/17/2020 1[facility]p [facility] N76.0 Acute vaginitis F41.9 Anxiety disorder, unspecifie d Office Visit 08/08/2020 8:30a [facility] I10 Essential (primary) hyperten jana [...] 8:00 am - [facility] 01/28/2021 - Marina Borges M.D.* [...]
--- OUTSIDE RECORDS SUMMARY | 2021-03-06 06:17 | CCD | Continuity of Care Document ---
Author Author Richa Borges M.D. Organization Unknown Address [address] [facility] [address] [place] [address] Phone [phone] Care Team Providers Care Caustic Purification Operator Name Role Phone Marina Borges MD AUTM [phone] Farrah Henderson MD AUTM [phone] [facility] AUTM [phone] [facility] AUTM [phone] Oanh Melvin MD AUTM [phone] Samy Cardoza MD AUTM [phone] Ry Benitez DO AUTM [phone] Rama Sehlton AUTM [phone] Problems Active Problems Provider Date Enriquez's esophagus [...] Borges M.D. 06/29/2013 Calcium Citrate + D [id number]-Inop Tablets 1 po qd 60tabs Marina Borges M.D. 11/14 Multivital Tablets 1 po qd Marina Borges M.D. 01/25/2012 Fish Oil Double Strength 1200mg Ca psules 1 po qd Marina Borges M.D. 01/25/20 12 Co Q10 200mg Capsules 1 by mouth every day Marina Borges M.D. 01/25/20 12 Saline Nasal [place] 0.65% Solution 6-8x/d as directed Marina Borges [...] CPT Code Status Date Vaccine Lot # [id number] Given 02/13/2020 Influenza Vaccin e Quadrivalent Preser/Antibiotic Free Im Use [id number] 01591 Given 02/16/2019 Influenza Vaccin e Quadrivalent Preser/Antibiotic Free Im Use 994266 06088 Given 02/24/2018 Influenza Virus Vaccine, Quadrivalent (Cciiv4), Derived From 8 Given 2017 Influenza Vaccin e Quadrivalent Preser/Antibiotic Free Im Use 434010 U-PneuC Given 02/11/2017 Prevnar 13 56936 Given 08/11/2016 Adacel- Tetanus Diphtheria P ertussis (Age64 & Under) [id number] Q2037 Given 03/10/2016 Fluvirin Virus Vaccine 24604 01 Q2037 Given 04/04/2015 Fluvirin Virus Vaccine 53816 01 Q2037 Given 03/01/2014 Fluvirin Virus Vaccine 24354 21 Q2037 Given 03/28/2013 Fluvirin Virus Vaccine 50717 01 Q2037 Given 02/23/2012 Fluvirin Virus Vaccine 28012 01 66540 Given 01/25/2012 Pneumovax 23 [id number] Q2037 Given 03/10/2011 Fluvirin Virus Vaccine 94256 Given 02/17/2010 Influenza Virus Vaccine 55189 Refused 08/11/2018 Zoster Vaccine 09367 Refused 08/10/2017 Zoster Vaccine Vital Signs Date [...] Note Laboratory test finding 01/28/2021 van[facility] Central Office Frame Wirer: Dr Michael Bullock [place] [id number] [phone] Vitamin D 25-Hydroxy <pending> Basic Metabolic Panel 01/28/2021 [facility], Central Office Frame Wirer: Dr Michael Bullock [place] [id number] [phone] Glucose 137 mg/dL High 74 - 99 [...] mL/min >60 2 Basic Metabolic Panel 01/15/2021 [facility], Central Office Frame Wirer: Dr Michael Bullock [place], [place] [id number] [phone] Glucose 97 mg/dL 74 - 99 3 [...] mL/min >60 4 Basic Metabolic Panel 01/07/2021 [facility], Central Office Frame Wirer: Dr [place], [place] [id number] [phone] Glucose 132 mg/dL High 74 - 99 [...] mL/min >60 6 Basic Metabolic Panel 12/17/2020 [facility], Central Office Frame Wirer: [place] [address] [phone] Glucose 148 mg/dL High 74 - 99 [...] mL/min >60 8 Laboratory test finding 12/17/2020 [facility] [address] [place], [place] [address] [phone] Genital Culture FULL REPORT IN L <SEE NOTE> Normal 9 Comprehensive Chem Profile 12/03/2020 [facility], Central Office Frame Wirer: [place] [address] [phone] Glucose 104 mg/dL High 74 - 99 [...] mL/min >60 12 Ua Dipstick Only 12/03/2020 [facility] , Central Office Frame Wirer: [place] [address] [phone] Urine Color YELLOW Yellow Urine Appearance CLOUDY Abnormal Clear Urine PH 8.0 units 5.0 - 9.0 Urine Specific [place] 1.010 1.005 - 1.030 Urine Leukocytes LARGE Abnormal Negative Urine Blood NEGATIVE Negative Urine Protein NEGATIVE Negative -Trace Urine Glucose NEGATIVE mg/dL Negative Urine Nitrite NEGATIVE Negative Urine Ketone NEGATIVE mg/dL Negative Urine Bilirubin NEGATIVE Negative Urine Urobilinogen 0.2 mg/dL 0.2 - 1.0 Laboratory test finding 12/03/2020 [facility], Central Office Frame Wirer: Dr Michael Bullock [place] [id number] [phone] Thyroid Stimulating Hormone 2.77 uIU/mL 0.3 6 - 3.74 Lipid Profile 12/03/2020 [facility] , Central Office Frame Wirer: Dr Michael Bullock [place] [id number] [phone] Cholesterol 166 mg/dL 131 - 200 Triglycerides 44 mg/dL 30 - 150 HDL Cholesterol 111 mg/dL High 35 - 60 LDL (Calculated) 46 CALC Low 50 - 159 Laboratory test finding 12/03/[address] [facility] [address] [facility] Central Office Frame Wirer: Dr Michael Bullock [place] [id number] [phone] Magnesium 1.8 mg/dL 1.8 - 2.4 Creatine Kinase(CK) 88 U/L 26 - 192 Complete Blood Count 12/03/2020 [facility], Central Office Frame Wirer: [place] [address] [phone] WBC 6.5 x10*3/UL 4.1 - 10.9 RBC [...] [facility] [address] [place], [place] [id number] [phone] Dexa/Bone Density <pending> 3D Bi-Lateral Mammogram <pending> Laboratory test finding 10/17/2020 [facility] [address] [place] [address] [phone] Genital Culture FULL REPORT IN L <SEE NOTE> Normal 13 Basic Metabolic Panel 08/07/2020 [facility] Central Office Frame Wirer: [place] [address] [phone] Glucose 104 mg/dL High 74 - 99 [...] 60 mL/min >60 16 Lipid Profile 08/07/2020 [facility] Central Office Frame Wirer: [place] [address] [phone] Cholesterol 212 mg/dL High 131 - 200 [...] LITTLE GFR LEFT ESRD GFR <15 ON CORE BLOWER 3 100-125 mg/dL PRE-DIABET ES/FASTING >126 mg/dL DIABETES/FASTING 4 CHRONIC KIDNEY DISEASE STAGI NG PER NKF STAGE I & II GFR >= 60 NORMAL TO MILDLY DECREASED STAGE III GFR 30-59 MODERATELY DECREASED STAGE IV GFR 15-29 SEVERELY DECREASED STAGE V GFR <15 VERY LITTLE GFR LEFT ESRD GFR <15 ON CORE BLOWER 5 100-125 mg/dL PRE-DIABET ES/FASTING >126 mg/dL DIABETES/FASTING 6 CHRONIC KIDNEY DISEASE STAGI NG PER NKF STAGE I & II GFR >= 60 NORMAL TO MILDLY DECREASED STAGE III GFR 30-59 MODERATELY DECREASED STAGE IV GFR 15-29 SEVERELY DECREASED STAGE V GFR <15 VERY LITTLE GFR LEFT ESRD GFR <15 ON CORE BLOWER 7 100-125 mg/dL PRE-DIABET ES/FASTING >126 mg/dL DIABETES/FASTING 8 CHRONIC KIDNEY DISEASE STAGI NG PER NKF STAGE I & II GFR >= 60 NORMAL TO MILDLY DECREASED STAGE III GFR 30-59 MODERATELY DECREASED STAGE IV GFR 15-29 SEVERELY DECREASED STAGE V GFR <15 VERY LITTLE GFR LEFT ESRD GFR <15 ON CORE BLOWER 9 FULL REPORT IN LAB NOTES (eC [...] LITTLE GFR LEFT ESRD GFR <15 ON CORE BLOWER 13 FULL REPORT IN LAB NOTES (eC [...] LITTLE GFR LEFT ESRD GFR <15 ON CORE BLOWER Procedures Date Code Description Status 01/07/2021 10625 Office/Outpatient Established Mo d MDM 30-39 Min Completed 12/17/2020 31361 Office/Outpatient Established Mo d MDM 30-39 Min Completed 12/17/2020 [id number] Bone Mineral Density Test Comple king 12/04/2020 21780 Office/Outpatient Established Mo d MDM 30-39 Min Completed 11/25/2020 [id number] Mammogram Completed 10/17/2020 67451 Office/Outpatient Established Lo w MDM 20-29 Min Completed 08/08/2020 98191 Office/Outpatient Established Mo d MDM 30-39 Min Completed 11/23/2019 [id number] Mammogram Completed 09/27/2018 [id number] Mammogram Completed 09/27/2018 [id number] Bone Mineral Density Test Comple king 01/10/2018 [id number] Diabetic Retinal Eye Exam Comple king 12/22/2017 [id number] Diabetic Retinal Eye Exam Comple king 08/24/2017 [id number] Mammogram Completed 09/22/2016 [id number] Bone Mineral Density Test Comple king 08/13/2016 [id number] Mammogram Completed 02/05/2015 [id number] Mammogram Completed 12/20/2014 [id number] Colonoscopy Completed 11/29/2014 [id number] Mammogram Completed 02/01/2014 [id number] Mammogram Completed 02/01/2014 [id number] Bone Mineral Density Test Comple king 01/25/2013 [id number] Mammogram Completed 01/13/2012 [id number] Mammogram Completed 01/13/2012 [id number] Bone Mineral Density Test Comple king 12/11/2010 [id number] Mammogram Completed 12/25/2009 [id number] Bone Mineral Density Test Comple king 10/26/2007 [id number] Colonoscopy Completed 07/13/2003 [id number] Mammogram Completed Medical Devices Description No Information Available Encounters Type Date Location Provider Dx Diagnosis Office Visit 01/07/2021 2:45p [facility] P.CNika Borges M.D. N76.0 Acute vaginitis F41.9 Anxiety disorder, unspecifie d G25.81 Restless legs syndrome E87.1 Hypo-osmolality and hyponatr emia I10 Essential (primary) hyperten jana K59.00 Constipation, unspecified K22.70 Enriquez's esophagus without dysplasia Office Visit 12/17/2020 1:00p [facility] PNikaCNika Borges M.D. N76.0 Acute vaginitis F41.9 Anxiety disorder, unspecifie d E87.1 Hypo-osmolality and hyponatr emia I10 Essential (primary) hyperten jana K59.00 Constipation, unspecified K22.70 Enriquez's esophagus without dysplasia G25.81 Restless legs syndrome Office Visit 12/04/2020 8[facility]a [facility] N76.0 Acute vaginitis F41.9 Anxiety disorder, unspecifie d I10 Essential (primary) hyperten jana E87.1 Hypo-osmolality and hyponatr emia K59.00 Constipation, unspecified K22.70 Enriquez's esophagus without dysplasia E78.00 Pure hypercholesterolemia, u nspecified R73.09 Other abnormal glucose G25.81 Restless legs syndrome Office Visit 10/17/2020 1[facility]30p [facility] N76.0 Acute vaginitis F41.9 Anxiety disorder, unspecifie d Office Visit 08/08/2020 8:30a [facility] I10 Essential (primary) hyperten jana [...] 8:00 am - [facility] 01/28/2021 - Marina Borges [...]
--- OUTSIDE RECORDS SUMMARY | 2021-03-06 06:17 | CCD | Continuity of Care Document ---
Author Author Richa Borges M.D. Organization Unknown Address [address] [facility] [address] [place] [address] Phone [phone] Care Team Providers Care Clinical Staff Anesthesiologist Name Role Phone Marina Borges MD AUTM [phone] Farrah Henderson MD AUTM [phone] [facility] AUTM [phone] [facility] AUTM [phone] Oanh Melvin MD AUTM [phone] Samy Cardoza MD AUTM [phone] Ry Benitez DO AUTM [phone] Rama Shelton AUTM [phone] Problems Active Problems Provider Date Enriquez's esophagus [...] Borges M.D. 06/29/2013 Calcium Citrate + D [id number] Tablets 1 po qd 60tabs Marina Borges M.D. 11/14 Multivital Tablets 1 po qd Marina Borges M.D. 01/25/2012 Fish Oil Double Strength 1200mg Ca psules 1 po qd Marina Borges M.D. 01/25/20 12 Co Q10 200mg Capsules 1 by mouth every day Marina Borges M.D. 01/25/20 12 Saline Nasal [place] 0.65% Solution 6-8x/d as directed Marina Borges [...] 02/24/2018 Administration Of Flu Vaccine Inj frank Boregs M.D. 03/18/20 17 Administration Of Flu Vaccine Inj frank Borges M.D. 03/10/20 16 Administration Of Flu Vaccine Inj frank Borges M.D. 04/04/20 15 Administration Of Flu Vaccine Inj frank Borges M.D. 03/01/20 14 Administration Of Flu Vaccine Inj frank Borges M.D. 03/28/20 13 Administration Of Flu Vaccine Inj ection Marina Borges M.D. 02/23/20 12 Immunizations CPT Code Status Date Vaccine Lot # [id number] Given 02/13/2020 Influenza Vaccin e Quadrivalent Preser/Antibiotic Free Im Use [id number] 04341 Given 02/16/2019 Influenza Vaccin e Quadrivalent Preser/Antibiotic Free Im Use 233437 27463 Given 02/24/2018 Influenza Virus Vaccine, Quadrivalent (Cciiv4), Derived From 2 Given 2017 Influenza Vaccin e Quadrivalent Preser/Antibiotic Free Im Use [id number] U-PneuC Given 02/11/2017 Prevnar 13 02961 Given 08/11/2016 Adacel- Tetanus Diphtheria P ertussis (Age64 & Under) [id number] Q2037 Given 03/10/2016 Fluvirin Virus Vaccine 14999 01 Q2037 Given 04/04/2015 Fluvirin Virus Vaccine 60006 01 Q2037 Given 03/01/2014 Fluvirin Virus Vaccine 70632 21 Q2037 Given 03/28/2013 Fluvirin Virus Vaccine 13817 01 Q2037 Given 02/23/2012 Fluvirin Virus Vaccine 66416 01 51975 Given 01/25/2012 Pneumovax 23 [id number] Q2037 Given 03/10/2011 Fluvirin Virus Vaccine 08953 Given 02/17/2010 Influenza Virus Vaccine 96515 Refused 08/11/2018 Zoster Vaccine 79981 Refused 08/10/2017 Zoster Vaccine Vital Signs Date [...] H/L Range Note Basic Metabolic Panel 01/07/2021 [facility] Haul Truck Driver: Dr Michael Bullock [place] [id number] [phone] Glucose 132 mg/dL High 74 - 99 [...] mL/min >60 2 Basic Metabolic Panel 12/17/2020 [facility] Haul Truck Driver: Dr Michael Bullock [place] [id number] [phone] Glucose 148 mg/dL High 74 - 99 [...] mL/min >60 4 Laboratory test finding 12/17/2020 [facility] [address] [place] [address] [phone] Genital Culture FULL REPORT IN L <SEE NOTE> Normal 5 Complete Blood Count 12/03/2020 [facility] Haul Truck Driver: [place] [address] [phone] WBC 6.5 x10*3/UL 4.1 - 10.9 RBC [...] 2.0 - 7.8 Laboratory test finding 12/03/2020 [facility], Haul Truck Driver: [place] [address] [phone] Magnesium 1.8 mg/dL 1.8 - 2.4 Creatine Kinase(CK) 88 U/L 26 - 192 Comprehensive Chem Profile 12/03/2020 [facility] Ha[employer] Truck Driver: [place] [address] [phone] Glucose 104 mg/dL High 74 - 99 [...] 60 mL/min >60 8 Lipid Profile 12/03/2020 [facility] , Haul Truck Driver: [place] [address] [phone] Cholesterol 166 mg/dL 131 - 200 Triglycerides 44 mg/dL 30 - 150 HDL Cholesterol 111 mg/dL High 35 - 60 LDL (Calculated) 46 CALC Low 50 - 159 Laboratory test finding 12/03/2020 [facility] Haul Truck Driver: [place] [address] [phone] Thyroid Stimulating Hormone 2.77 uIU/mL 0.3 6 - 3.74 Ua Dipstick Only 12/03/2020 [facility] Haul Truck Driver: Dr Michael Bullock [place], [place] [id number] [phone] Urine Color YELLOW Yellow Urine Appearance CLOUDY Abnormal Clear Urine PH 8.0 units 5.0 - 9.0 Urine Specific [place] 1.010 1.005 - 1.030 Urine Leukocytes LARGE Abnormal Negative Urine Blood NEGATIVE Negative Urine Protein NEGATIVE Negative -Trace Urine Glucose NEGATIVE mg/dL Negative Urine Nitrite NEGATIVE Negative Urine Ketone NEGATIVE mg/dL Negative Urine Bilirubin NEGATIVE Negative Urine Urobilinogen 0.2 mg/dL 0.2 - 1.0 Xray 11/25/2020 [facility] [address] [place] [address] [phone] Dexa/Bone Density <pending> 3D Bi-Lateral Mammogram <pending> Laboratory test finding 10/17/2020 [facility] [address] [place] [address] [phone] Genital Culture FULL REPORT IN L <SEE NOTE> Normal 9 Basic Metabolic Panel 08/07/2020 [facility] Haul Truck Driver: [place] [address] [phone] Glucose 104 mg/dL High 74 - 99 [...] 60 mL/min >60 12 Lipid Profile 08/07/2020 [facility] Haul Truck Driver: [place] [address] [phone] Cholesterol 212 mg/dL High 131 - 200 [...] LITTLE GFR LEFT ESRD GFR <15 ON TRANSPORTATION ECONOMICS TEACHER 3 100-125 mg/dL PRE-DIABET ES/FASTING >126 mg/dL DIABETES/FASTING 4 CHRONIC KIDNEY DISEASE STAGI NG PER NKF STAGE I & II GFR >= 60 NORMAL TO MILDLY DECREASED STAGE III GFR 30-59 MODERATELY DECREASED STAGE IV GFR 15-29 SEVERELY DECREASED STAGE V GFR <15 VERY LITTLE GFR LEFT ESRD GFR <15 ON TRANSPORTATION ECONOMICS TEACHER 5 FULL REPORT IN LAB NOTES (eC [...] LITTLE GFR LEFT ESRD GFR <15 ON TRANSPORTATION ECONOMICS TEACHER 9 FULL REPORT IN LAB NOTES (eC [...] LITTLE GFR LEFT ESRD GFR <15 ON TRANSPORTATION ECONOMICS TEACHER Procedures Date Code Description Status 12/17/2020 54434 Office/Outpatient Established Mo d MDM 30-39 Min Completed 12/17/2020 [id number] Bone Mineral Density Test Comple king 12/04/2020 32791 Office/Outpatient Established Mo d MDM 30-39 Min Completed 11/25/2020 [id number] Mammogram Completed 10/17/2020 36165 Office/Outpatient Established Lo w MDM 20-29 Min Completed 08/08/2020 42997 Office/Outpatient Established Mo d MDM 30-39 Min Completed 11/23/2019 [id number] Mammogram Completed 09/27/2018 [id number] Mammogram Completed 09/27/2018 [id number] Bone Mineral Density Test Comple king 01/10/2018 [id number] Diabetic Retinal Eye Exam Comple king 12/22/2017 [id number] Diabetic Retinal Eye Exam Comple [facility] 08/24/2017 [id number] Mammogram Completed 09/22/2016 [id number] Bone Mineral Density Test Comple [facility] 08/13/2016 [id number] Mammogram Completed 02/05/2015 [id number] Mammogram Completed 12/20/2014 [id number] Colonoscopy Completed 11/29/2014 [id number] Mammogram Completed 02/01/2014 [id number] Mammogram Completed 02/01/2014 [id number] Bone Mineral Density Test Comple king 01/25/2013 [id number] Mammogram Completed 01/13/2012 [id number] Mammogram Completed 01/13/2012 [id number] Bone Mineral Density Test Comple [facility] 12/11/2010 [id number] Mammogram Completed 12/25/2009 [id number] Bone Mineral Density Test Comple [facility] 10/26/2007 [id number] Colonoscopy Completed 07/13/2003 [id number] Mammogram Completed Medical Devices Description No Information Available Encounters Type Date Location Provider Dx Diagnosis Office Visit 12/17/2020 [facility] N76.0 Acute vaginitis F41.9 Anxiety disorder, unspecifie d E87.1 Hypo-osmolality and hyponatr emia I10 Essential (primary) hyperten jana K59.00 Constipation, unspecified K22.70 Enriquez's esophagus without dysplasia G25.81 Restless legs syndrome Office Visit 12/04/2020 8:45a [facility] N76.0 Acute vaginitis F41.9 Anxiety disorder, unspecifie d I10 Essential (primary) hyperten jana E87.1 Hypo-osmolality and hyponatr emia K59.00 Constipation, unspecified K22.70 Enriquez's esophagus without dysplasia E78.00 Pure hypercholesterolemia, u nspecified R73.09 Other abnormal glucose G25.81 Restless legs syndrome Office Visit 10/17/2020 1:30p [facility], Rahat Borges M.D. N76.0 Acute vaginitis F41.9 Anxiety disorder, unspecifie d Office Visit 08/08/2020 8:30a [facility], Rahat Borges M.D. I10 Essential (primary) hyperten jana E78.00 Pure hypercholesterolemia, u nspecified R73.09 Other abnormal glucose F41.9 Anxiety disorder, unspecifie d R00.2 Palpitations K59.00 Constipation, unspecified G25.81 Restless legs syndrome E87.1 Hypo-osmolality and hyponatr emia Assessments Date Code Description Provider 01/07/2021 N76.0 Acute vaginitis Marina contreras M.D. 01/07/2021 F41.9 Anxiety disorder, unspecified Nasreen Borges M.D. 01/07/2021 E87.1 Hypo-osmolality and hyponatremia Marina Borges M.D. 01/07/2021 I10 Essential (primary) hypertension Marina Borges M.D. 01/07/2021 K59.00 Constipation, unspecified Marina Borges M.D. 01/07/2021 K22.70 Enriquez's esophagus without dysp lasia Marina Borges M.D. 01/07/2021 G25.81 Restless legs syndrome Marina Borges M.D. 12/17/2020 N76.0 Acute vaginitis [...] Lab Schedule Plan of Treatment Future Appointment(s):* 01/28/2021 1:45 pm - Marina Borges M.D. at [facility] * 03/11/2021 8:00 am - Marina Borges M.D. at [facility] 01/07/2021 - Marina Borges M.D.* N76.0 Acute vaginitis * F41.9 Anxiety disorder, unspecified * E87.1 Hypo-osmolality and hyponatremia * I10 Essential (primary) hypertension * K59.00 Constipation, unspecified * K22.70 Enriquez's esophagus without dysplasia * G25.81 Restless legs syndrome * All * New Medication:* Stool Softener 100 mg - 1-2 by mouth every day * Clonazepam 0.5 mg - take 1/2 tablet by mouth twice a day (max 1 daily) Functional Status Description No Information Available Mental Status Description No Information Available Referrals Description No Information Available
--- OUTSIDE RECORDS SUMMARY | 2021-03-06 06:17 | CCD | Continuity of Care Document ---
Author Author Lab Schedule, Richa Grossman Organization Unknown Address [address] [place] [address] Phone Unavailable Care Team Providers Care Tobacco Stemmer Name Role Phone Marina Borges MD AUTM [phone] Farrah Henderson MD AUTM [phone] [facility] AUTM [phone] [facility] AUTM [phone] Oanh Melvin MD AUTM [phone] Samy Cardoza MD AUTM [phone] Ry Benitez DO AUTM [phone] Rama Shelton AUTM [phone] Problems Active Problems Provider Date Enriquez's esophagus Dhereaj Figueroa D.O. Onset: 2010 Osteoporosis Dheeraj Figueroa [...] Borges M.D. 06/29/2013 Calcium Citrate + D [id number] Tablets 1 po qd 60tabs Marina Borges M.D. 11/14 Multivital Tablets 1 po qd Marina Borges M.D. 01/25/2012 Fish Oil Double Strength 1200mg Ca psules 1 po qd Marina Borges M.D. 01/25/20 12 Co Q10 200mg Capsules 1 by mouth every day Marina Borges M.D. 01/25/20 12 Saline Nasal [place] 0.65% Solution 6-8x/d as directed Marina Borges [...] 03/28/20 13 Administration Of Flu Vaccine Inj Celsa Orona.D. 02/23/20 12 Immunizations CPT Code Status Date Vaccine Lot # [id number] Given 02/13/2020 Influenza Vaccin e Quadrivalent Preser/Antibiotic Free Im Use [id number] 12774 Given 02/16/2019 Influenza Vaccin e Quadrivalent Preser/Antibiotic Free Im Use [id number] 34936 Given 02/24/2018 Influenza Virus Vaccine, Quadrivalent (Cciiv4), Derived From 9 Given 2017 Influenza Vaccin e Quadrivalent Preser/Antibiotic Free Im Use 344212 U-PneuC Given 02/11/2017 Prevnar 13 71113 Given 08/11/2016 Adacel- Tetanus Diphtheria P ertussis (Age64 & Under) [id number] Q2037 Given 03/10/2016 Fluvirin Virus Vaccine 19197 01 Q2037 Given 04/04/2015 Fluvirin Virus Vaccine 33169 01 Q2037 Given 03/01/2014 Fluvirin Virus Vaccine 72631 21 Q2037 Given 03/28/2013 Fluvirin Virus Vaccine 95182 01 Q2037 Given 02/23/2012 Fluvirin Virus Vaccine 84693 01 47648 Given 01/25/2012 Pneumovax 23 [id number] Q2037 Given 03/10/2011 Fluvirin Virus Vaccine 28191 Given 02/17/2010 Influenza Virus Vaccine 34966 Refused 08/11/2018 Zoster Vaccine [id number] Refused 08/10/2017 Zoster Vaccine Vital Signs Date [...] Result H/L Range Note Basic Metabolic Panel 01/15/2021 Enedelia lopez, vanessa Clipper And Turner: [place] [address] [phone] Glucose 97 mg/dL 74 - 99 1 BUN 9 mg/dL 7 - 18 Creatinine 0.7 mg/dL 0.6 - 1.3 Sodium 136 mEq/L 136 - 145 Potassium 4.5 mEq/L 3.5 - 5.1 Chloride 100 mEq/L 98 - 107 Carbon Dioxide 26 mEq/L 21 - 32 Calcium 9.5 mg/dL 8.5 - 10.1 GFR >= 60 mL/min >60 GFR >= 60 mL/min >60 2 Basic [facility]: Dr Michael Bullock [place], [place] [id number] [phone] Glucose 132 mg/dL High 74 - 99 3 BUN [...] 60 mL/min >60 4 Basic Metabolic Panel 12/17/2020 [facility] Clipper And Turner: [place] [address] [phone] Glucose 148 mg/dL High 74 - 99 5 BUN 11 mg/dL 7 - 18 Creatinine 0.7 mg/dL 0.6 - 1.3 Sodium 134 mEq/L Low 136 - 145 Potassium 3.7 mEq/L 3.5 - 5.1 Chloride 97 mEq/L Low 98 - 107 Carbon Dioxide 31 mEq/L 21 - 32 Calcium 9.6 mg/dL 8.5 - 10.1 GFR >= 60 mL/min >60 GFR >= 60 mL/min >60 6 Laboratory test finding 12/17/2020 [facility] [address], [place] [id number] [phone] Genital Culture FULL REPORT IN L <SEE NOTE> Normal 7 Complete Blood Count 12/03/2020 [facility] Clipper And Turner: [place] [address] [phone] WBC 6.5 x10*3/UL 4.1 - 10.9 RBC [...] 2.0 - 7.8 Laboratory test finding 12/03/2020 [facility] Clipper And Turner: Dr Michael Bullock [place], [place] [id number] [phone] Magnesium 1.8 mg/dL 1.8 - 2.4 Creatine Kinase(CK) 88 U/L 26 - 192 Comprehensive Chem Profile 12/03/2020 [facility] vanessa Magaña Clipper And Turner: [place] [address] [phone] Glucose 104 mg/dL High 74 - 99 8 BUN 8 mg/dL 7 - 18 Creatinine 0.7 mg/dL 0.6 - 1.3 Sodium 134 mEq/L Low 136 - 145 9 Potassium 3.9 mEq/L 3.5 - 5.1 Chloride [...] >60 GFR >= 60 mL/min >60 10 Lipid Profile 12/03/2020 [facility] Clipper And Turner: [place] [address] [phone] Cholesterol 166 mg/dL 131 - 200 Triglycerides 44 mg/dL 30 - 150 HDL Cholesterol 111 mg/dL High 35 - 60 LDL (Calculated) 46 CALC Low 50 - 159 Laboratory test finding 12/03/2020 [facility] Clipper And Turner: [place] [address] [phone] Thyroid Stimulating Hormone 2.77 uIU/mL 0.3 6 - 3.74 Ua Dipstick Only 12/03/2020 [facility] Clipper And Turner: [place] [address] [phone] Urine Color YELLOW Yellow Urine Appearance CLOUDY Abnormal Clear Urine PH 8.0 units 5.0 - 9.0 Urine Specific [place] 1.010 1.005 - 1.030 Urine Leukocytes LARGE Abnormal Negative Urine Blood NEGATIVE Negative Urine Protein NEGATIVE Negative -Trace Urine Glucose NEGATIVE mg/dL Negative Urine Nitrite NEGATIVE Negative Urine Ketone NEGATIVE mg/dL Negative Urine Bilirubin NEGATIVE Negative Urine Urobilinogen 0.2 mg/dL 0.2 - 1.0 Xray 11/25/2020 [facility] [address] [place] [address] [phone] Dexa/Bone Density <pending> 3D Bi-Lateral Mammogram <pending> Laboratory test finding 10/17/2020 [facility] [address] [place] [id number] [phone] Genital Culture FULL REPORT IN L <SEE NOTE> Normal 11 Basic Metabolic Panel 08/07/2020 [facility] And Turner: [place] [address] [phone] Glucose 104 mg/dL High 74 - 99 12 BUN 11 mg/dL 7 - 18 Creatinine 0.7 mg/dL 0.6 - 1.3 Sodium 135 mEq/L Low 136 - 145 13 Potassium 3.9 mEq/L 3.5 - 5.1 Chloride 96 mEq/L Low 98 - 107 Carbon Dioxide 27 mEq/L 21 - 32 Calcium 9.1 mg/dL 8.5 - 10.1 GFR >= 60 mL/min >60 GFR >= 60 mL/min >60 14 Lipid Profile 08/07/2020 [facility] Clipper And Turner: Dr Michael Bullock [place], [place] [id number] [phone] Cholesterol 212 mg/dL High 131 - 200 [...] LITTLE GFR LEFT ESRD GFR <15 ON SONAR TECHNICIAN 3 100-125 mg/dL PRE-DIABET ES/FASTING >126 mg/dL DIABETES/FASTING 4 CHRONIC KIDNEY DISEASE STAGI NG PER NKF STAGE I & II GFR >= 60 NORMAL TO MILDLY DECREASED STAGE III GFR 30-59 MODERATELY DECREASED STAGE IV GFR 15-29 SEVERELY DECREASED STAGE V GFR <15 VERY LITTLE GFR LEFT ESRD GFR <15 ON SONAR TECHNICIAN 5 100-125 mg/dL PRE-DIABET ES/FASTING >126 mg/dL DIABETES/FASTING 6 CHRONIC KIDNEY DISEASE STAGI NG PER NKF STAGE I & II GFR >= 60 NORMAL TO MILDLY DECREASED STAGE III GFR 30-59 MODERATELY DECREASED STAGE IV GFR 15-29 SEVERELY DECREASED STAGE V GFR <15 VERY LITTLE GFR LEFT ESRD GFR <15 ON SONAR TECHNICIAN 7 FULL REPORT IN LAB NOTES (eC W and Medent). NORMAL LIYAH PRESENT ORGANISM 1: YEAST LIKE ORGANISM QUANTITY OF GROWTH FEW ORGANISM 1: YEAST LIKE ORGANISM 8 100-125 mg/dL PRE-DIABET ES/FASTING >126 mg/dL DIABETES/FASTING 9 NOTE: LYTES VERIFIED 10 CHRONIC KIDNEY DISEASE STAGI NG PER NKF STAGE I & II GFR >= 60 NORMAL TO MILDLY DECREASED STAGE III GFR 30-59 MODERATELY DECREASED STAGE IV GFR 15-29 SEVERELY DECREASED STAGE V GFR <15 VERY LITTLE GFR LEFT ESRD GFR <15 ON SONAR TECHNICIAN 11 FULL REPORT IN LAB NOTES (eC W and Medent). NORMAL LIYAH PRESENT ORGANISM 1: YEAST LIKE ORGANISM QUANTITY OF GROWTH FEW ORGANISM 1: YEAST LIKE ORGANISM 12 100-125 mg/dL PRE-DIABET ES/FASTING >126 mg/dL DIABETES/FASTING 13 NOTE: RESULT VERIFIED. 14 CHRONIC KIDNEY DISEASE STAGI NG PER NKF STAGE I & II GFR >= 60 NORMAL TO MILDLY DECREASED STAGE III GFR 30-59 MODERATELY DECREASED STAGE IV GFR 15-29 SEVERELY DECREASED STAGE V GFR <15 VERY LITTLE GFR LEFT ESRD GFR <15 ON SONAR TECHNICIAN Procedures Date Code Description Status 01/07/2021 25492 Office/Outpatient Established Mo d MDM 30-39 Min Completed 12/17/2020 24766 Office/Outpatient Established Mo d MDM 30-39 Min Completed 12/17/2020 [id number] Bone Mineral Density Test Comple king 12/04/2020 82575 Office/Outpatient Established Mo d MDM 30-39 Min Completed 11/25/2020 [id number] Mammogram Completed 10/17/2020 43468 Office/Outpatient Established Lo w MDM 20-29 Min Completed 08/08/2020 72695 Office/Outpatient Established Mo d MDM 30-39 Min Completed 11/23/2019 [id number] Mammogram Completed 09/27/2018 [id number] Mammogram Completed 09/27/2018 [id number] Bone Mineral Density Test Comple king 01/10/2018 [id number] Diabetic Retinal Eye Exam Comple king 12/22/2017 [id number] Diabetic Retinal Eye Exam Comple king 08/24/2017 [id number] Mammogram Completed 09/22/2016 [id number] Bone Mineral Density Test Comple king 08/13/2016 [id number] Mammogram Completed 02/05/2015 [id number] Mammogram Completed 12/20/2014 [id number] Colonoscopy Completed 11/29/2014 [id number] Mammogram Completed 02/01/2014 [id number] Mammogram Completed 02/01/2014 [id number] Bone Mineral Density Test Comple king 01/25/2013 [id number] Mammogram Completed 01/13/2012 [id number] Mammogram Completed 01/13/2012 [id number] Bone Mineral Density Test Comple king 12/11/2010 [id number] Mammogram Completed 12/25/2009 [id number] Bone Mineral Density Test Comple [facility] 10/26/2007 [id number] Colonoscopy Completed 07/13/2003 [id number] Mammogram Completed Medical Devices Description No Information Available Encounters Type Date Location Provider Dx Diagnosis Office Visit 01/07/2021 2:45p [facility] M.[facility] N76.0 Acute vaginitis F41.9 Anxiety disorder, unspecifie d G25.81 Restless legs syndrome E87.1 Hypo-osmolality and hyponatr emia I10 Essential (primary) hyperten jana K59.00 Constipation, unspecified K22.70 Enriquez's esophagus without dysplasia Office Visit 12/17/2020 1:00p [facility] saab M.D. N76.0 Acute vaginitis F41.9 Anxiety disorder, unspecifie d E87.1 Hypo-osmolality and hyponatr emia I10 Essential (primary) hyperten jana K59.00 Constipation, unspecified K22.70 Enriquez's esophagus without dysplasia G25.81 Restless legs syndrome Office Visit 12/04/2020 8:45a [facility] sa[facility] M.D. N76.0 Acute vaginitis F41.9 Anxiety disorder, unspecifie d I10 Essential (primary) hyperten jana E87.1 Hypo-osmolality and hyponatr emia K59.00 Constipation, unspecified K22.70 Enriquez's esophagus without dysplasia E78.00 Pure hypercholesterolemia, u nspecified R73.09 Other abnormal glucose G25.81 Restless legs syndrome Office Visit 10/17/2020 1:30p [facility] sa[facility] M.D. N76.0 Acute vaginitis F41.9 Anxiety disorder, unspecifie d Office Visit 08/08/2020 8:30a [facility] M.D. I10 Essential (primary) hyperten jana E78.00 Pure hypercholesterolemia, u nspecified R73.09 Other abnormal glucose F41.9 Anxiety disorder, unspecifie d R00.2 Palpitations K59.00 Constipation, unspecified G25.81 Restless legs syndrome E87.1 Hypo-osmolality and hyponatr emia Assessments Date Code Description Provider 01/15/2021 E87.1 Hypo-osmolality and hyponatremia Marina Borges [...] 1:45 pm - Marina Borges M.D. at [facility] * 03/11/2021 8:00 am - Marina Borges M.D. at [facility] 01/07/2021 - Marina Borges M.D.* [...] Pelvic organ prolapse. She will establish with [facility] Gynecology end of January.9. Osteoporosis. DEXA reviewed. She is on Calcium and D. Discuss Alendronate which she has been on previously but in the setting of Enriquez's esophagitis consider injectable therapy next visit. Functional Status Description No Information Available Mental Status Description No Information Available Referrals Description No Information Available
--- OUTSIDE RECORDS SUMMARY | 2021-03-06 06:17 | CCD | Continuity of Care Document ---
Author Author Lab Schedule, Richa Grossman Organization Unknown Address [address] [place] [address] Phone Unavailable Care Team Providers Care Snath Handle Assembler Name Role Phone Marina Borges MD AUTM [phone] Farrah Henderson MD AUTM [phone] [facility] AUTM [phone] [facility] AUTM [phone] Oanh Melvin MD AUTM [phone] Samy Cardoza MD AUTM [phone] Ry Benitez DO AUTM [phone] Rama Shelton AUTM [phone] Problems Active Problems Provider Date Enriquez's esophagus [...] Borges M.D. 06/29/2013 Calcium Citrate + D [id number] Tablets 1 po qd 60tabs Marina Borges M.D. 11/14 Multivital Tablets 1 po qd Marina Borges M.D. 01/25/2012 Fish Oil Double Strength 1200mg Ca psules 1 po qd Marina Borges M.D. 01/25/20 12 Co Q10 200mg Capsules 1 by mouth every day Marina Borges M.D. 01/25/20 12 Saline Nasal [place] 0.65% Solution 6-8x/d as directed Marina Borges [...] CPT Code Status Date Vaccine Lot # [id number] Given 02/13/2020 Influenza Vaccin e Quadrivalent Preser/Antibiotic Free Im Use 617369 10301 Given 02/16/2019 Influenza Vaccin e Quadrivalent Preser/Antibiotic Free Im Use 467261 19092 Given 02/24/2018 Influenza Virus Vaccine, Quadrivalent (Cciiv4), Derived From 0 Given 2017 Influenza Vaccin e Quadrivalent Preser/Antibiotic Free Im Use [id number] U-PneuC Given 02/11/2017 Prevnar 13 75349 Given 08/11/2016 Adacel- Tetanus Diphtheria P ertussis (Age64 & Under) [id number] Q2037 Given 03/10/2016 Fluvirin Virus Vaccine 59994 01 Q2037 Given 04/04/2015 Fluvirin Virus Vaccine 02855 01 Q2037 Given 03/01/2014 Fluvirin Virus Vaccine 19417 21 Q2037 Given 03/28/2013 Fluvirin Virus Vaccine 51291 01 Q2037 Given 02/23/2012 Fluvirin Virus Vaccine 27213 01 21637 Given 01/25/2012 Pneumovax 23 [id number] Q2037 Given 03/10/2011 Fluvirin Virus Vaccine 94730 Given 02/17/2010 Influenza Virus Vaccine 75494 Refused 08/11/2018 Zoster Vaccine 46202 Refused 08/10/2017 Zoster Vaccine Vital Signs Date [...] H/L Range Note Basic Metabolic Panel 01/07/2021 Enedelia lopez, vanessa Bpm Analyst: [place] [address] [phone] Glucose 132 mg/dL High 74 - 99 [...] mL/min >60 2 Basic Metabolic Panel 12/17/2020 [facility] Bpm Analyst: [place] [address] [phone] Glucose 148 mg/dL High 74 - 99 [...] mL/min >60 4 Laboratory test finding 12/17/2020 [facility] [address], [place] [id number] [phone] Genital Culture FULL REPORT IN L <SEE NOTE> Normal 5 Complete Blood Count 12/03/2020 [facility] Bpm Analyst: [place] [address] [phone] WBC 6.5 x10*3/UL 4.1 - 10.9 RBC [...] 2.0 - 7.8 Laboratory test finding 12/03/2020 [facility] kaiser, Bpm Analyst: [place] [address] [phone] Magnesium 1.8 mg/dL 1.8 - 2.4 Creatine Kinase(CK) 88 U/L 26 - 192 Comprehensive Chem Profile 12/03/2020 [facility] beck Bpm Analyst: [place] [address] [phone] Glucose 104 mg/dL High 74 - 99 [...] 60 mL/min >60 8 Lipid Profile 12/03/2020 [facility] Bpm Analyst: [place] [address] [phone] Cholesterol 166 mg/dL 131 - 200 Triglycerides 44 mg/dL 30 - 150 HDL Cholesterol 111 mg/dL High 35 - 60 LDL (Calculated) 46 CALC Low 50 - 159 Laboratory test finding 12/03/2020 [facility] kaiser, Bpm Analyst: [place] [address] [phone] Thyroid Stimulating Hormone 2.77 uIU/mL 0.3 6 - 3.74 Ua Dipstick Only 12/03/2020 [facility] Bpm Analyst: Dr Michael Bullock [place], [place] [address] [phone] Urine Color YELLOW Yellow Urine Appearance CLOUDY Abnormal Clear Urine PH 8.0 units 5.0 - 9.0 Urine Specific [place] 1.010 1.005 - 1.030 Urine Leukocytes LARGE Abnormal Negative Urine Blood NEGATIVE Negative Urine Protein NEGATIVE Negative -Trace Urine Glucose NEGATIVE mg/dL Negative Urine Nitrite NEGATIVE Negative Urine Ketone NEGATIVE mg/dL Negative Urine Bilirubin NEGATIVE Negative Urine Urobilinogen 0.2 mg/dL 0.2 - 1.0 Xray 11/25/2020 [facility] [address] [place] [id number] [phone] Dexa/Bone Density <pending> 3D Bi-Lateral Mammogram <pending> Laboratory test finding 10/17/2020 [facility] [address] [id number] [phone] Genital Culture FULL REPORT IN L <SEE NOTE> Normal 9 Basic Metabolic Panel 08/07/2020 [facility] Bpm Analyst: Dr Michael Bullock [place] [id number] [phone] Glucose 104 mg/dL High 74 - 99 [...] 60 mL/min >60 12 Lipid Profile 08/07/2020 [facility] Bpm Analyst: [place] [address] [phone] Cholesterol 212 mg/dL High 131 - 200 [...] LITTLE GFR LEFT ESRD GFR <15 ON PHYSICIAN CODING SPECIALIST 3 100-125 mg/dL PRE-DIABET ES/FASTING >126 mg/dL DIABETES/FASTING 4 CHRONIC KIDNEY DISEASE STAGI NG PER NKF STAGE I & II GFR >= 60 NORMAL TO MILDLY DECREASED STAGE III GFR 30-59 MODERATELY DECREASED STAGE IV GFR 15-29 SEVERELY DECREASED STAGE V GFR <15 VERY LITTLE GFR LEFT ESRD GFR <15 ON PHYSICIAN CODING SPECIALIST 5 FULL REPORT IN LAB NOTES (eC [...] LITTLE GFR LEFT ESRD GFR <15 ON PHYSICIAN CODING SPECIALIST 9 FULL REPORT IN LAB NOTES (eC [...] LITTLE GFR LEFT ESRD GFR <15 ON PHYSICIAN CODING SPECIALIST Procedures Date Code Description Status 01/07/2021 41687 Office/Outpatient Established Mo d MDM 30-39 Min Completed 12/17/2020 55749 Office/Outpatient Established Mo d MDM 30-39 Min Completed 12/17/2020 [id number] Bone Mineral Density Test Comple king 12/04/2020 80705 Office/Outpatient Established Mo d MDM 30-39 Min Completed 11/25/2020 [id number] Mammogram Completed 10/17/2020 36890 Office/Outpatient Established Lo w MDM 20-29 Min Completed 08/08/2020 73190 Office/Outpatient Established Mo d MDM 30-39 Min Completed 11/23/2019 [id number] Mammogram Completed 09/27/2018 [id number] Mammogram Completed 09/27/2018 [id number] Bone Mineral Density Test Comple king 01/10/2018 [id number] Diabetic Retinal Eye Exam Comple king 12/22/2017 [id number] Diabetic Retinal Eye Exam Comple [facility] 08/24/2017 [id number] Mammogram Completed 09/22/2016 [id number] Bone Mineral Density Test Comple [facility] 08/13/2016 [id number] Mammogram Completed 02/05/2015 [id number] Mammogram Completed 12/20/2014 [id number] Colonoscopy Completed 11/29/2014 [id number] Mammogram Completed 02/01/2014 [id number] Mammogram Completed 02/01/2014 [id number] Bone Mineral Density Test Comple king 01/25/2013 [id number] Mammogram Completed 01/13/2012 [id number] Mammogram Completed 01/13/2012 [id number] Bone Mineral Density Test Comple [facility] 12/11/2010 [id number] Mammogram Completed 12/25/2009 [id number] Bone Mineral Density Test Comple [facility] 10/26/2007 [id number] Colonoscopy Completed 07/13/2003 [id number] Mammogram Completed Medical Devices Description No Information Available Encounters Type Date Location Provider Dx Diagnosis Office Visit 01/07/2021 2:45p [facility] saab M.D. N76.0 Acute vaginitis F41.9 Anxiety disorder, unspecifie d G25.81 Restless legs syndrome E87.1 Hypo-osmolality and hyponatr emia I10 Essential (primary) hyperten jana K59.00 Constipation, unspecified K22.70 Enriquez's esophagus without dysplasia Office Visit 12/17/2020 1:00p [facility] Intern[facility]hat saab M.D. N76.0 Acute vaginitis F41.9 Anxiety disorder, unspecifie d E87.1 Hypo-osmolality and hyponatr emia I10 Essential (primary) hyperten jana K59.00 Constipation, unspecified K22.70 Enriquez's esophagus without dysplasia G25.81 Restless legs syndrome Office Visit 12/04/2020 8:45a [facility] saab M.D. N76.0 Acute vaginitis F41.9 Anxiety disorder, unspecifie d I10 Essential (primary) hyperten jana E87.1 Hypo-osmolality and hyponatr emia K59.00 Constipation, unspecified K22.70 Enriquez's esophagus without dysplasia E78.00 Pure hypercholesterolemia, u nspecified R73.09 Other abnormal glucose G25.81 Restless legs syndrome Office Visit 10/17/2020 1:30p [place] [facility] saab M.D. N76.0 Acute vaginitis F41.9 Anxiety disorder, unspecifie d Office Visit 08/08/2020 8:30a [facility] I10 Essential (primary) hyperten jana [...] 1:45 pm - Marina Borges M.D. at [facility] * 03/11/2021 8:00 am - Marina Borges M.D. at [facility] 01/07/2021 - Marina Borges M.D.* [...] Pelvic organ prolapse. She will establish with [facility] Gynecology end of January.9. Osteoporosis. DEXA reviewed. She is on Calcium and D. Discuss Alendronate which she has been on previously but in the setting of Enriquez's esophagitis consider injectable therapy next visit. Functional Status Description No Information Available Mental Status Description No Information Available Referrals Description No Information Available
--- OUTSIDE RECORDS SUMMARY | 2021-03-06 06:17 | CCD | Continuity of Care Document ---
Author Author Lab Schedule, Richa Grossman Organization Unknown Address [address] [place] [id number] Phone Unavailable Care Team Providers Care Bisque Finisher Name Role Phone Marina Borges MD AUTM [phone] Farrah Henderson MD AUTM [phone] [facility] AUTM [phone] [facility] AUTM [phone] Oanh Melvin MD AUTM [phone] Samy Cardoza MD AUTM [phone] Ry Benitez DO AUTM [phone] Rama Shelton AUTM [phone] Problems Active Problems Provider Date Enriquez's esophagus [...] Borges M.D. 06/29/2013 Calcium Citrate + D [id number] Tablets 1 po qd 60tabs Marina Borges M.D. 11/14 Multivital Tablets 1 po qd Marina Borges M.D. 01/25/2012 Fish Oil Double Strength 1200mg Ca psules 1 po qd Marina Borges M.D. 01/25/20 12 Co Q10 200mg Capsules 1 by mouth every day Marina Borges M.D. 01/25/20 12 Saline Nasal [place] 0.65% Solution 6-8x/d as directed Marina Borges [...] CPT Code Status Date Vaccine Lot # [id number] Given 02/13/2020 Influenza Vaccin e Quadrivalent Preser/Antibiotic Free Im Use [id number] Given 02/16/2019 Influenza Vaccin e Quadrivalent Preser/Antibiotic Free Im Use [id number] 24712 Given 02/24/2018 Influenza Virus Vaccine, Quadrivalent ([id number]), Derived From 0 Given 2017 Influenza Vaccin e Quadrivalent Preser/Antibiotic Free Im Use [id number] U-PneuC Given 02/11/2017 Prevnar 13 33856 Given 08/11/2016 Adacel- Tetanus Diphtheria P ertussis (Age64 & Under) [id number] Q2037 Given 03/10/2016 Fluvirin Virus Vaccine 39251 01 Q2037 Given 04/04/2015 Fluvirin Virus Vaccine 06146 01 Q2037 Given 03/01/2014 Fluvirin Virus Vaccine 88930 21 Q2037 Given 03/28/2013 Fluvirin Virus Vaccine 12830 01 Q2037 Given 02/23/2012 Fluvirin Virus Vaccine 13926 01 16004 Given 01/25/2012 Pneumovax 23 [id number] Q2037 Given 03/10/2011 Fluvirin Virus Vaccine 77588 Given 02/17/2010 Influenza Virus Vaccine 41368 Refused 08/11/2018 Zoster Vaccine 19725 Refused 08/10/2017 Zoster Vaccine Vital Signs Date [...] Basic Metabolic Panel 01/15/2021 [facility], [facility] Drug Room Operator: [place] [address] [phone] Glucose 97 mg/dL 74 - 99 1 [...] mL/min >60 2 Basic Met[facility]: Dr Michael Bullock [place], [place] [id number] [phone] Glucose 132 mg/dL High 74 - 99 [...] >60 4 Basic Metabolic Panel 12/17/2020 [facility] Drug Room Operator: [place] [address] [phone] Glucose 148 mg/dL High 74 - 99 [...] mL/min >60 6 Laboratory test finding 12/17/2020 [facility] [address] [place], [place] [id number] [phone] Genital Culture FULL REPORT IN L <SEE NOTE> Normal 7 Complete Blood Count 12/03/2020 [facility] Drug Room Operator: [place] [address] [phone] WBC 6.5 x10*3/UL 4.1 - 10.9 RBC [...] 2.0 - 7.8 Laboratory test finding 12/03/2020 [facility] Drug Room Operator: Dr Michael Bullock [place], [place] [id number] [phone] Magnesium 1.8 mg/dL 1.8 - 2.4 Creatine Kinase(CK) 88 U/L 26 - 192 Comprehensive Chem Profile 12/03/2020 [facility] vanessa Magaña Drug Room Operator: [place] [address] [phone] Glucose 104 mg/dL High 74 - 99 [...] 60 mL/min >60 10 Lipid Profile 12/03/2020 [facility] Drug Room Operator: [place] [address] [phone] Cholesterol 166 mg/dL 131 - 200 Triglycerides 44 mg/dL 30 - 150 HDL Cholesterol 111 mg/dL High 35 - 60 LDL (Calculated) 46 CALC Low 50 - 159 Laboratory test finding 12/03/2020 [facility] Drug Room Operator: [place] [address] [phone] Thyroid Stimulating Hormone 2.77 uIU/mL 0.3 6 - 3.74 Ua Dipstick Only 12/03/2020 [facility] Drug Room Operator: [place] [address] [phone] Urine Color YELLOW Yellow Urine Appearance CLOUDY Abnormal Clear Urine PH 8.0 units 5.0 - 9.0 Urine Specific [place] 1.010 1.005 - 1.030 Urine Leukocytes LARGE Abnormal Negative Urine Blood NEGATIVE Negative Urine Protein NEGATIVE Negative -Trace Urine Glucose NEGATIVE mg/dL Negative Urine Nitrite NEGATIVE Negative Urine Ketone NEGATIVE mg/dL Negative Urine Bilirubin NEGATIVE Negative Urine Urobilinogen 0.2 mg/dL 0.2 - 1.0 Xray 11/25/2020 [facility] [address] [place] [address] [phone] Dexa/Bone Density <pending> 3D Bi-Lateral Mammogram <pending> Laboratory test finding 10/17/2020 [facility] [address] [place] [id number] [phone] Genital Culture FULL REPORT IN L <SEE NOTE> Normal 11 Basic Metabolic Panel 08/07/2020 [facility] Drug Room Operator: [place] [address] [phone] Glucose 104 mg/dL High 74 - 99 [...] 60 mL/min >60 14 Lipid Profile 08/07/2020 [facility] Drug Room Operator: Dr Michael Bullock [place], [place] [id number] [phone] Cholesterol 212 mg/dL High 131 - 200 [...] LITTLE GFR LEFT ESRD GFR <15 ON CASTING MACHINE OPERATOR HELPER 3 100-125 mg/dL PRE-DIABET ES/FASTING >126 mg/dL DIABETES/FASTING 4 CHRONIC KIDNEY DISEASE STAGI NG PER NKF STAGE I & II GFR >= 60 NORMAL TO MILDLY DECREASED STAGE III GFR 30-59 MODERATELY DECREASED STAGE IV GFR 15-29 SEVERELY DECREASED STAGE V GFR <15 VERY LITTLE GFR LEFT ESRD GFR <15 ON CASTING MACHINE OPERATOR HELPER 5 100-125 mg/dL PRE-DIABET ES/FASTING >126 mg/dL DIABETES/FASTING 6 CHRONIC KIDNEY DISEASE STAGI NG PER NKF STAGE I & II GFR >= 60 NORMAL TO MILDLY DECREASED STAGE III GFR 30-59 MODERATELY DECREASED STAGE IV GFR 15-29 SEVERELY DECREASED STAGE V GFR <15 VERY LITTLE GFR LEFT ESRD GFR <15 ON CASTING MACHINE OPERATOR HELPER 7 FULL REPORT IN LAB NOTES (eC [...] LITTLE GFR LEFT ESRD GFR <15 ON CASTING MACHINE OPERATOR HELPER 11 FULL REPORT IN LAB NOTES (eC [...] LITTLE GFR LEFT ESRD GFR <15 ON CASTING MACHINE OPERATOR HELPER Procedures Date Code Description Status 01/07/2021 60040 Office/Outpatient Established Mo d MDM 30-39 Min Completed 12/17/2020 04621 Office/Outpatient Established Mo d MDM 30-39 Min Completed 12/17/2020 [id number] Bone Mineral Density Test Comple king 12/04/2020 50750 Office/Outpatient Established Mo d MDM 30-39 Min Completed 11/25/2020 [id number] Mammogram Completed 10/17/2020 37434 Office/Outpatient Established Lo w MDM 20-29 Min Completed 08/08/2020 96499 Office/Outpatient Established Mo d MDM 30-39 Min Completed 11/23/2019 [id number] Mammogram Completed 09/27/2018 [id number] Mammogram Completed 09/27/2018 [id number] Bone Mineral Density Test Comple king 01/10/2018 [id number] Diabetic Retinal Eye Exam Comple king 12/22/2017 [id number] Diabetic Retinal Eye Exam Comple king 08/24/2017 [id number] Mammogram Completed 09/22/2016 [id number] Bone Mineral Density Test Comple king 08/13/2016 [id number] Mammogram Completed 02/05/2015 [id number] Mammogram Completed 12/20/2014 [id number] Colonoscopy Completed 11/29/2014 [id number] Mammogram Completed 02/01/2014 [id number] Mammogram Completed 02/01/2014 [id number] Bone Mineral Density Test Comple king 01/25/2013 [id number] Mammogram Completed 01/13/2012 [id number] Mammogram Completed 01/13/2012 [id number] Bone Mineral Density Test Comple king 12/11/2010 [id number] Mammogram Completed 12/25/2009 [id number] Bone Mineral Density Test Comple [facility] 10/26/2007 [id number] Colonoscopy Completed 07/13/2003 [id number] Mammogram Completed Medical Devices Description No Information Available Encounters Type Date Location Provider Dx Diagnosis Office Visit 01/07/2021 2:45p [facility] M.[facility] N76.0 Acute vaginitis F41.9 Anxiety disorder, unspecifie d G25.81 Restless legs syndrome E87.1 Hypo-osmolality and hyponatr emia I10 Essential (primary) hyperten jana K59.00 Constipation, unspecified K22.70 Enriquez's esophagus without dysplasia Office Visit 12/17/2020 1:00p [facility] M.D. N76.0 Acute vaginitis F41.9 Anxiety disorder, unspecifie d E87.1 Hypo-osmolality and hyponatr emia I10 Essential (primary) hyperten jana K59.00 Constipation, unspecified K22.70 Enriquez's esophagus without dysplasia G25.81 Restless legs syndrome Office Visit 12/04/2020 8:45a [facility] M.D. N76.0 Acute vaginitis F41.9 Anxiety disorder, unspecifie d I10 Essential (primary) hyperten jana E87.1 Hypo-osmolality and hyponatr emia K59.00 Constipation, unspecified K22.70 Enriquez's esophagus without dysplasia E78.00 Pure hypercholesterolemia, u nspecified R73.09 Other abnormal glucose G25.81 Restless legs syndrome Office Visit 10/17/2020 1:30p [facility] M.D. N76.0 Acute vaginitis F41.9 Anxiety disorder, unspecifie d Office Visit 08/08/2020 8:30a [facility] M.D[facility] I10 Essential (primary) hyperten jana E78.00 Pure hypercholesterolemia, u nspecified R73.09 Other abnormal glucose F41.9 Anxiety disorder, unspecifie d R00.2 Palpitations K59.00 Constipation, unspecified G25.81 Restless legs syndrome E87.1 Hypo-osmolality and hyponatr emia Assessments Date Code Description Provider 01/07/2021 N76.0 Acute vaginitis Marina M. Wallace e, M.D. 01/07/2021 F41.9 Anxiety disorder, unspecified Nasreen Borges M.D. 01/07/2021 G25.81 Restless legs syndrome Marina Borges M.D. 01/07/2021 E87.1 Hypo-osmolality and hyponatremia Marina oBrges M.D. 01/07/2021 I10 Essential (primary) hypertension Marina [...] Borges M.D. 08/08/2020 E78.00 Pure hypercholesterolemia, unspe cijanet Borges M.D. 08/08/2020 R73.09 Other abnormal glucose [...] 1:45 pm - Marina Borges M.D. at [facility] * 03/11/2021 8:00 am - Marina Borges M.D. at [facility] 01/07/2021 - Marina Borges M.D.* [...] Pelvic organ prolapse. She will establish with [facility]ne[facility] end of January.9. Osteoporosis. DEXA reviewed. She is on Calcium and D. Discuss Alendronate which she has been on previously but in the setting of Enriquez's esophagitis consider injectable therapy next visit. Functional Status Description No Information Available Mental Status Description No Information Available Referrals Description No Information Available
--- OUTSIDE RECORDS SUMMARY | 2021-03-06 06:19 | CCD ---
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 Name Role Phone TRESSA CERVANTES MD Unavailable Unavailable REINDL, TRESSA ALVARADO Unavailable Unavailable REINDL, TRESSA ALVARADO Unavailable Unavailable REINDL, TRESSA ALVARADO Unavailable Unavailable REINDL, TRESSA ALVARADO Unavailable Unavailable REINDL, TRESSA ALVARADO Unavailable Unavailable REINDL, TRESSA ALVARADO Unavailable Unavailable REINDL, TRESSA ALVARADO Unavailable Unavailable REINDL, TRESSA ALVARADO Unavailable Unavailable REINDL, TRESSA ALVARADO Unavailable Unavailable REINDL, TRESSA ALVARADO Unavailable Unavailable REINDL, TRESSA ALVARADO Unavailable Unavailable REINDL, TRESSA ALVARADO Unavailable Unavailable REINDL, TRESSA ALVARADO Unavailable Unavailable REINDL, TRESSA ALVARADO Unavailable Unavailable REINDL, TRESSA ALVARADO Unavailable Unavailable REINDL, TRESSA ALVARADO Unavailable Unavailable REINDL, TRESSA ALVARADO Unavailable Unavailable REINMARI, TRESSA ALVARADO Unavailable Unavailable REINDL, TRESSA ALVARADO Unavailable Unavailable REINDL, TRESSA ALVARADO Unavailable Unavailable REINDL, TRESSA ALVARADO Unavailable Unavailable REINDL, TRESSA ALVARADO Unavailable Unavailable REINDL, TRESSA ALVARADO Unavailable Unavailable REINDL, TRESSA ALVARADO Unavailable Unavailable REINDL, TERSSA ALVARADO Unavailable Unavailable REINDL, TRESSA ALVARADO Unavailable Unavailable REINDL, TRESSA ALVARADO Unavailable Unavailable REINMARI, TRESSA ALVARADO Unavailable Unavailable REINDL, TRESSA ALVARADO Unavailable Unavailable REINDL, TRESSA ALVARADO Unavailable Unavailable REINDL, TRESSA ALVARADO Unavailable Unavailable REINDL, TRESSA ALVARADO Unavailable Unavailable REINDL, TRESSA ALVARADO Unavailable Unavailable REINMARI, TRESSA ALVARADO Unavailable Unavailable REINMARI, TRESSA ALVARADO Unavailable Unavailable REINMARI, TRESSA ALVARADO Unavailable Unavailable REINMARI, TRESSA ALVARADO Unavailable Unavailable REINMARI, TRESSA ALVARADO Unavailable Unavailable REINMARI, TRESSA ALVARADO Unavailable Unavailable REINMARI, TRESSA ALVARADO Unavailable Unavailable BILLY, TRESSA ALVARADO Unavailable Unavailable Theo ESCALERA MD Unavailable Unavailable ESCALERA, L ERMELINDA ALVARADO Unavailable Unavailable ESCALERA, L ERMELINDA ALVARADO Unavailable Unavailable ESCALERA, L ERMELINDA ALVARADO Unavailable Unavailable ESCALERA, L ERMELINDA ALVARADO Unavailable Unavailable ESCALERA, L ERMELINDA ALVARADO Unavailable Unavailable ESCALERA, L ERMELINDA ALVARADO Unavailable Unavailable ESCALERA, L ERMELINDA ALVARADO Unavailable Unavailable ESCALERA, L ERMELINDA ALVARADO Unavailable Unavailable ESCALERA, L ERMELINDA ALVARADO Unavailable Unavailable ESCALERA, L ERMELINDA ALVARADO Unavailable Unavailable ESCALERA, L ERMELINDA ALVARADO Unavailable Unavailable ESCALERA, L ERMELINDA ALVARADO Unavailable Unavailable ESCALERA, L ERMELINDA ALVARADO Unavailable Unavailable ESCALERA, L ERMELINDA ALVARADO Unavailable Unavailable ESCALERA, L ERMELINDA ALVARADO Unavailable Unavailable ESCALERA, L ERMELINDA ALVARADO Unavailable Unavailable ESCALERA, L ERMELINDA ALVARADO Unavailable Unavailable ESCALERA, L ERMELINDA ALVARADO Unavailable Unavailable ESCALERA, L ERMELINDA ALVARADO Unavailable Unavailable ESCALERA, L ERMELINDA ALVARADO Unavailable Unavailable ESCALERA, L ERMELINDA ALVARADO Unavailable Unavailable ESCALERA, L ERMELINDA ALVARADO Unavailable Unavailable ESCALERA, L ERMELINDA ALVARADO Unavailable Unavailable ESCALERA, L ERMELINDA ALVARADO Unavailable Unavailable ESCALERA, L ERMELINDA ALVARADO Unavailable Unavailable ESCALERA, L ERMELINDA ALVARADO Unavailable Unavailable ESCALERA, L ERMELINDA ALVARADO Unavailable Unavailable ESCALERA, L ERMELINDA ALVARADO Unavailable Unavailable ESCALERA, L ERMELINDA ALVARADO Unavailable Unavailable ESCALERA, L ERMELINDA ALVARADO Unavailable Unavailable ESCALERA, L ERMELINDA ALVARADO Unavailable Unavailable ESCALERA, L ERMELINDA ALVARADO Unavailable Unavailable ESCALERA, L ERMELINDA ALVARADO Unavailable Unavailable ESCALERA, L ERMELINDA ALVARADO Unavailable Unavailable ESCALERA, L ERMELINDA ALVARADO Unavailable Unavailable ESCALERA, L ERMELINDA ALVARADO Unavailable Unavailable ESCALERA, L ERMELINDA ALVARADO Unavailable Unavailable ESCALERA, L ERMELINDA ALVARADO Unavailable Unavailable ESCALERA, L ERMELINDA ALVARADO Unavailable Unavailable ESCALERA, L ERMELINDA ALVARADO Unavailable Unavailable ESCALERA, L ERMELINDA ALVARADO Unavailable Unavailable ESCALERA, L ERMELINDA ALVARADO Unavailable Unavailable ESCALERA, L ERMELINDA ALVARADO Unavailable Unavailable ESCALERA, L ERMELINDA ALVARADO Unavailable Unavailable CHARLENE NAGEL MD Unavailable Unavailable CHARLENE NAGEL MD Unavailable Unavailable CHARLENE NAGEL MD Unavailable Unavailable CHARLENE NAGEL MD Unavailable Unavailable CHARLENE NAGEL MD Unavailable Unavailable CHARLENE NAGEL MD Unavailable Unavailable CHARLENE NAGEL MD Unavailable Unavailable CHARLENE NAGEL MD Unavailable Unavailable CHARLENE NAGEL MD Unavailable Unavailable GINZBURG, CHARLENE MD Unavailable Unavailable GINZBURG, CHARLENE MD Unavailable Unavailable GINZBURG, CHARLENE MD Unavailable Unavailable GINZBURG, CHARLENE MD Unavailable Unavailable GINZBURG, CHARLENE MD Unavailable Unavailable GINZBURG, CHARLENE MD Unavailable Unavailable GINZBURG, CHARLENE MD Unavailable Unavailable GINZBURG, CHARLENE MD Unavailable Unavailable GINZBURG, CHARLENE MD Unavailable Unavailable GINZBURG, CHARLENE MD Unavailable Unavailable GINZBURG, CHARLENE MD Unavailable Unavailable GINZBURG, CHARLENE MD Unavailable Unavailable GINZBURG, CHARLENE MD Unavailable Unavailable GINZBURG, CHARLENE MD Unavailable Unavailable GINZBURG, CHARLENE MD Unavailable Unavailable GINZBURG, CHARLENE MD Unavailable Unavailable GINZBURG, CHARLENE MD Unavailable Unavailable GINZBURG, CHARLENE MD Unavailable Unavailable GINZBURG, CHARLENE MD Unavailable Unavailable GINZBURG, CHARLENE MD Unavailable Unavailable GINZBURG, CHARLENE MD Unavailable Unavailable GINZBURG, CHARLENE MD Unavailable Unavailable GINZBURG, CHARLENE MD Unavailable Unavailable GINZBURG, CHARLENE MD Unavailable Unavailable GINZBURG, CHARLENE MD Unavailable Unavailable GINZBURG CHARLENE MD Unavailable Unavailable GINZBURG CHARLENE MD Unavailable Unavailable GINZBURG CHARLENE MD Unavailable Unavailable GINZBURG, CHARLENE MD Unavailable Unavailable GINZBURG CHARLENE MD Unavailable Unavailable GINZBURG, CHARLENE MD Unavailable Unavailable GINZBURG CHARLENE MD Unavailable Unavailable GINZBURG, CHARLENE MD Unavailable Unavailable GINZBURG, CHARLENE MD Unavailable Unavailable GINZBURG, CHARLENE MD Unavailable Unavailable GINZBURG, CHARLENE MD Unavailable Unavailable GINZBURG, CHARLENE MD Unavailable Unavailable GINZBURG, CHARLENE MD Unavailable Unavailable GINZBURG, CHARLENE MD Unavailable Unavailable GINZBURG, CHARLENE MD Unavailable Unavailable GINZBURG, CHARLENE MD Unavailable Unavailable GINZBURG, CHARLENE MD Unavailable Unavailable GINZBURG, CHARLENE MD Unavailable Unavailable GINZBURG, CHARLENE MD Unavailable Unavailable GINZBURG, CHARLENE MD Unavailable Unavailable GINZBURG, CHARLENE MD Unavailable Unavailable GINZBURG, CHARLENE MD Unavailable Unavailable CHARLENE NAGEL MD Unavailable Unavailable CHARLENE NAGEL MD Unavailable Unavailable CHARLENE NAGEL MD Unavailable Unavailable CHARLENE NAGEL MD Unavailable Unavailable CHARLENE NAGEL MD Unavailable Unavailable CHARLENE NAGEL MD Unavailable Unavailable CHARLENE NAGEL MD Unavailable Unavailable CHARLENE NAGEL MD Unavailable Unavailable CHARLENE NAGEL MD Unavailable Unavailable CHARLENE NAGEL MD Unavailable Unavailable CHARLENE NAGEL MD Unavailable Unavailable CHARLENE NAGEL MD Unavailable Unavailable CHARLENE NAGEL MD Unavailable Unavailable CHARLENE NAGEL MD Unavailable Unavailable CHARLENE NAGEL MD Unavailable Unavailable CHARLENE NAGEL MD Unavailable Unavailable Celsa Borges MD Unavailable Unavailable Celsa Borges MD Unavailable Unavailable Celsa Borges MD Unavailable Unavailable Celsa Borges MD Unavailable Unavailable Celsa Borges MD Unavailable Unavailable Celsa Borges MD Unavailable Unavailable Celsa Borges MD Unavailable Unavailable Celsa Borges MD Unavailable Unavailable Celsa Borges MD Unavailable Unavailable Celsa Borges MD Unavailable Unavailable Celsa Borges MD Unavailable Unavailable Celsa Borges MD Unavailable Unavailable Celsa Borges MD Unavailable Unavailable Celsa Borges MD Unavailable Unavailable Celsa Borges MD Unavailable Unavailable Celsa Borges MD Unavailable Unavailable Celsa Borges MD Unavailable Unavailable Celsa Borges MD Unavailable Unavailable Celsa Borges MD Unavailable Unavailable Celsa Borges MD Unavailable Unavailable Celsa Borges MD Unavailable Unavailable Celsa Borges MD Unavailable Unavailable Celsa Borges MD Unavailable Unavailable Celsa Borges MD Unavailable Unavailable Celsa Borges MD Unavailable Unavailable Celsa Borges MD Unavailable Unavailable Celsa Borges MD Unavailable Unavailable Celsa Borges MD Unavailable Unavailable Celsa Borges MD Unavailable Unavailable Celsa Borges MD Unavailable Unavailable Celsa Borges MD Unavailable Unavailable JonyCelsa MD Unavailable Unavailable JonyCelsa MD Unavailable Unavailable JonyCelsa MD Unavailable Unavailable JonyCelsa MD Unavailable Unavailable JonyCelsa MD Unavailable Unavailable JonyCelsa MD Unavailable Unavailable JonyCelsa MD Unavailable Unavailable JonyCelsa MD Unavailable Unavailable JonyCelsa MD Unavailable Unavailable JonyCelsa MD Unavailable Unavailable JonyCelsa MD Unavailable Unavailable JonyCelsa MD Unavailable Unavailable JonyCelsa MD Unavailable Unavailable JonyCelsa MD Unavailable Unavailable JonyCelsa MD Unavailable Unavailable JonyCelsa MD Unavailable Unavailable JonyCelsa MD Unavailable Unavailable JonyCelsa MD Unavailable Unavailable JonyCelsa MD Unavailable Unavailable JonyCelsa MD Unavailable Unavailable Celsa Borges MD Unavailable Unavailable Celsa Borges MD Unavailable Unavailable Celsa Borges MD Unavailable Unavailable JonyCelsa contreras MD Unavailable Unavailable Celsa Borges MD Unavailable Unavailable Celsa Borges MD Unavailable Unavailable Celsa Borges MD Unavailable Unavailable Celsa Borges MD Unavailable Unavailable Celsa Borges MD Unavailable Unavailable Celsa Borges MD Unavailable Unavailable Celsa Borges MD Unavailable Unavailable Celsa Borges MD Unavailable Unavailable Celsa Borges MD Unavailable Unavailable Celsa Borges MD Unavailable Unavailable Celsa Borges MD Unavailable Unavailable Celsa Borges MD Unavailable Unavailable Celsa Borges MD Unavailable Unavailable Celsa Borges MD Unavailable Unavailable Celsa Borges MD Unavailable Unavailable Celsa Borges MD Unavailable Unavailable Celsa Borges MD Unavailable Unavailable Celsa Borges MD Unavailable Unavailable Celsa Borges MD Unavailable Unavailable Celsa Borges MD Unavailable Unavailable JonyCelsa MD Unavailable Unavailable Celsa Borges MD Unavailable Unavailable Celsa Borges MD Unavailable Unavailable Celsa Borges MD Unavailable Unavailable Celsa Borges MD Unavailable Unavailable JonyCelsa MD Unavailable Unavailable JonyCelsa MD Unavailable Unavailable Celsa Borges MD Unavailable Unavailable Celsa Borges MD Unavailable Unavailable Campbell, Amena Mak CLIENT FINANCE ANALYST Unavailable Unavailable Martina, Amena Mak CLIENT FINANCE ANALYST Unavailable Unavailable Campbell, Amena Mak CLIENT FINANCE ANALYST Unavailable Unavailable Campbell, Amena Mak CLIENT FINANCE ANALYST Unavailable Unavailable Martina, Amena Mak CLIENT FINANCE ANALYST Unavailable Unavailable Campbell, Amena Mak CLIENT FINANCE ANALYST Unavailable Unavailable Campbell, Amena Mak CLIENT FINANCE ANALYST Unavailable Unavailable Martina, Amena Mak CLIENT FINANCE ANALYST Unavailable Unavailable Campbell, Amena Mak CLIENT FINANCE ANALYST Unavailable Unavailable Campbell, Amena Mak CLIENT FINANCE ANALYST Unavailable Unavailable Campbell, Amena Mak CLIENT FINANCE ANALYST Unavailable Unavailable Campbell, Amena Mak CLIENT FINANCE ANALYST Unavailable Unavailable Campbell, Amena Mak CLIENT FINANCE ANALYST Unavailable Unavailable Martina, Amena Mak CLIENT FINANCE ANALYST Unavailable Unavailable TAIWO, A DIEGO DO Unavailable Unavailable TAIWO, A DIEGO DO Unavailable Unavailable TAIWO, A DIEGO DO Unavailable Unavailable TAIWO, A DIEGO DO Unavailable Unavailable TAIWO, A DIEGO DO Unavailable Unavailable TAIWO, A DIEGO DO Unavailable Unavailable TAIWO, A DIEGO DO Unavailable Unavailable TAIWO, A DIEGO DO Unavailable Unavailable TAIWO, A DIEGO DO Unavailable Unavailable TAIWO, A DIEGO DO Unavailable Unavailable TAIWO, A DIEGO DO Unavailable Unavailable TAIWO, A DIEGO DO Unavailable Unavailable TAIWO, A DIEGO DO Unavailable Unavailable TAIWO, A DIEGO DO Unavailable Unavailable TAIWO, A DIEGO DO Unavailable Unavailable TAIWO, A DIEGO DO Unavailable Unavailable TAIWO, A DIEGO DO Unavailable Unavailable TAIWO, A DIEGO DO Unavailable Unavailable TAIWO, A DIEGO DO Unavailable Unavailable TAIWO, A DIEGO DO Unavailable Unavailable TAIWO, A DIEGO DO Unavailable Unavailable TAIWO, A DIEGO DO Unavailable Unavailable Re-disclosure Warning The records that you are about to access may contain information from federally-assisted alcohol or drug abuse programs. If such information is present, then the following federally mandated warning applies: This information has been disclosed to you from records protected by federal confidentiality rules (42 CFR part 2). The federal rules prohibit you from making any further disclosure of this information unless further disclosure is expressly permitted by the written consent of the person to whom it pertains or as otherwise permitted by 42 CFR part 2. A general authorization for the release of medical or other information is NOT sufficient for this purpose. The Federal rules restrict any use of the information to criminally investigate or prosecute any alcohol or drug abuse patient.The records that you are about to access may contain highly sensitive health information, the redisclosure of which is protected by Article 27-F of the [facility] Public Health law. If you continue you may have access to information: Regarding HIV / AIDS; Provided by facilities licensed or operated by the [facility] Office of Mental Health; or Provided by the [facility] Office for People With Developmental Disabilities. If such information is present, then the following [facility] mandated warning applies: This information has been disclosed to you from confidential records which are protected by state law. State law prohibits you from making any further disclosure of this information without the specific written consent of the person to whom it pertains, or as otherwise permitted by law. Any unauthorized further disclosure in violation of state law may result in a fine or correction sentence or both. A general authorization for the release of medical or other information is NOT sufficient authorization for further disc losure. Family History Family Member Name Family Member Gender Family Member Status Date o f Status Description Data Source(s) Unknown Unknown Problem [facility] ([facility]) Unknown Female Problem [facility] ([facility]) Unknown Female Problem [facility] ([facility]) Encounters Encounter Providers Location Date Indications Data Source(s ) Outpatient Attender: CHARLENE NAGEL MD 03/27/2021 12:00: 00 AM [facility] Outpatient Attender: Marina Willams 01:00:00 PM EDT MED[facility] ([facility] ) Outpatient Attender: ERMELINDA [facility] safety coordinator 03/2021 02:30:00 PM EDT [facility] ([facility] Outpatient Attender: ERMELINDA [facility] safety coordinator 09:30:00 AM EDT [facility] ([facility] Outpatient Attender: Marina Willams 01:45:00 PM EDT [facility] ([facility] ) Outpatient Attender: Mak [facility] 01/21/2021 10:00:00 AM EDT - 01/21/2021 10:00:00 AM EDT [facility] Outpatient Attender: Marina Willams 02:45:00 PM EDT MED[facility] ([facility] ) Outpatient Attender: Marina Willams 01:00:00 PM EDT MED[facility] ([facility] ) Outpatient Attender: ERMELINDA ESCALERA MD [facility] safety coordinator 11:00:00 AM EDT [facility] Outpatient Attender: Marina Willams 08:45:00 AM EDT MED[facility] ([facility] ) Outpatient Attender: ERMELINDA ESCALERA MD [facility] safety coordinator 02:15:00 PM EDT [facility] [place] [address] [address] 10/31/2020 12:00:00 AM EDT eCW1 ([facility]) Outpatient Attender: Marina Willams 01:30:00 PM EDT MED[facility] ([facility] ) Outpatient Attender: ERMELINDA ESCALERA MD [facility] safety coordinator 04/2021 02:00:00 PM EDT [facility] ([facility] Outpatient Attender: Marina Willams 08:30:00 AM EDT MED[facility] ([facility] ) Outpatient Attender: TRESSA Andersen/Kushal/Arthur/Audra dl 06/27/2020 02:30:00 PM EST [facility] ([facility] Outpatient Attender: ERMELINDA ESCALERA MD [facility] safety coordinator 10/2020 09:45:00 AM EST [facility] ([facility] Outpatient Attender: Marina Willams 07:15:00 AM EST [facility] ([facility] ) [place] [address] [address] 05/02/2020 12:00:00 AM EST eCW1 ([facility]) <td ID="encounterTypeDescriptionID0">1 Y ear Follow-Up</td><td>Diego Benitez DO</td><td>Tressa Landeros MD [facility]</td><td>03/26/2020</td><td>8:52AM</td><td>9:45AM</td><td><content ID="encounterDiagnosisID0-0">Blepharitis Squamous</content>, <content ID="encounterDiagnosisID0-1">Cataract Senile Nuclear</content>, <content ID="encounterDiagnosisID0-2">Dry Eye Syndrome</content>, <content ID="encounterDiagnosisID0-3">Pseudophakia</content>, <content ID="encounterDiagnosisID0-4">Vitreous Disorders Degeneration</content></td>Outpatient Attender: DIEGO Foster MD [facility] 03/26/2020 08:52:00 AM EST - 03/26/2020 09:45:00 AM ES T Vitreous Disorders DegenerationPseudophakiaDry Eye SyndromeCataract Senile NuclearBlepharitis Squamous [place] (Tressa Craig MD [facility]) Vitreous Disorders Degeneration Pseudophakia 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 Outpatient Attender: Marina Willams 01:45:00 PM EST MED[facility] ([facility] ) Outpatient Attender: Marina Willams 10:00:00 AM EDT MED[facility] ([facility] ) Outpatient Attender: Marina Willams 09:45:00 AM EDT MED[facility] ([facility] ) Outpatient Attender: Marina Willams 01:45:00 PM EDT MED[facility] ([facility] ) Immunizations Vaccine Date Status Description Data Source(s) Influenza, injectable, MDCK, preservative free, noé valent 02/25/2021 08:59:00 AM EDT completed [facility] COVID-19 VACCINE Pfizer 07/07/2020 12:00:00 AM EST completed [facility] Vaccine Series Complete: YESThis Data wa s Submitted to [facility] Via [facility]. COVID-19 VACCINE, MRNA, [id number], LNP-S (PFIZER)/PF 07/07/19 12:00:00 AM EST completed [facility] COVID-19 VACCINE Pfizer 06/16/2020 12:00:00 AM EST completed [facility] Vaccine Series Complete: NOThis Data was Submitted to [facility] Via [facility]. COVID-19 VACCINE, MRNA, [id number], LNP-S (PFIZER)/PF 06/16/19 12:00:00 AM EST completed [facility] Influenza, injectable, MDCK, preservative free, noé valent 02/13/2020 10:04:00 AM EDT completed [facility] Medications Medication Brand Name Start Date Product Form Dose Route Admi nistrative Instructions Pharmacy Instructions Status Indications Reaction Description Data Source(s) 0.5 mg 02/26/2021 12:00:00 AM EDT tablet 30 TAKE ONE-HALF TABLET BY MOUTH TWICE A DAY MAXIMUM DAILY DOSE = 1 TAKE ONE-HALF TABLET BY MOUTH TWICE A DA Y MAXIMUM DAILY DOSE = 1 SOLD: 02/26/2021 [facility] Administration Of Flu Vaccine 02/25/2021 12:00:00 AM EDT completed [facility] Medication administered onsite 150 mg 02/24/2021 12:00:00 AM EDT tablet 2 TAKE ONE TABLET BY MOUTH NOW AND ONE TOMORROW TAKE ONE TABLET BY MOUTH NOW AND ONE TOMORROW SOLD: 02/24/2021 [facility] Fluconazole 150 MG Oral Tablet Fluconazole 02/24/2021 12:00:00 AM EDT ORAL active [facility] ([facility] Clobetasol Propionate E Clobetasol Propionate E 02/24/2021 12:00:00 A M EDT active [facility] ([facility] 150 mg 02/24/2021 12:00:00 AM EDT tablet 2 TAKE ONE TABLET BY MOUTH NOW AND ONE TOMORROW TAKE ONE TABLET BY MOUTH NOW AND ONE TOMORROW SOLD: 03/02/2021 [facility] 150 mg 02/24/2021 12:00:00 AM EDT tablet 2 TAKE ONE TABLET BY MOUTH NOW AND ONE TOMORROW TAKE ONE TABLET BY MOUTH NOW AND ONE TOMORROW SOLD: 02/26/2021 [facility] 150 mg 02/24/2021 12:00:00 AM EDT tablet 2 TAKE ONE TABLET BY MOUTH NOW AND ONE TOMORROW TAKE ONE TABLET BY MOUTH NOW AND ONE TOMORROW SOLD: 02/28/2021 [facility] Emollient Clobetasol Propionate 0.5 MG/ML Topical Crea m 0.05 % CLOBETASOL PROPIONATE/EMOLL 02/24/2021 12:00:00 AM EDT cream 45 APPLY ONE APPLICATION TOPICALLY TWICE A DAY APPLY ONE APPLICATION TOPICALLY TWICE A DAY SOLD: 02/24/2021 [facility] 0.5 mg 01/21/2021 12:00:00 AM EDT tablet 30 TAKE ONE-HALF TABLET BY MOUTH TWICE A DAY MAXIMUM DAILY DOSE = 1 TAKE ONE-HALF TABLET BY MOUTH TWICE A DA Y MAXIMUM DAILY DOSE = 1 SOLD: 01/22/2021 [facility] Docusate Sodium 100 MG Oral Capsule Stool Softener 01/07/2021 12:00 :00 AM EDT ORAL active [facility] ([facility]) Clonazepam 0.5 MG Oral Tablet Clonazepam 01/07/2021 12:00:00 AM EDT ORAL active [facility] ([facility]) 20 mg 01/07/2021 12:00:00 AM EDT capsule,delayed release (DR/EC) 90 TAKE ONE CAPSULE BY MOUTH EVERY MORNING TAKE ONE CAPSULE BY MOUTH EVERY MORNING SOLD: 01/09/2021 [facility] buspirone hydrochloride 15 MG Oral Tablet BUSPIRONE HCL 12/19/2020 12:00:00 AM EDT tablet 60 TAKE 1/3-1 TABLET BY MOUTH T HREE TIMES A DAY TAKE 1/3-1 TABLET BY MOUTH THREE TIMES A DAY SOLD: 12/20/2020 [facility] Amlodipine 5 MG Oral Tablet Amlodipine Besylate 12/18/2020 12:00:00 A M EDT active [facility] ([facility]) 100 mg 12/18/2020 12:00:00 AM EDT tablet 7 TAKE ONE TABLET BY MOUTH EVERY DAY FOR 7 DAYS TAKE ONE TABLET BY MOUTH EVERY DAY FOR 7 DAYS SOLD: 12/18/2020 [facility] Losartan Potassium 50 MG Oral Tablet Losartan Potassium 08/2020 12:00:00 AM EDT active [facility] ([facility]) Fluconazole 100 MG Oral Tablet Fluconazole 12/17/2020 12:00:00 AM EDT ORAL completed [facility] ([facility]) Oxyquinoline Sulfate 0.29320 MG/MG / Sod ium Dodecyl Sulfate 0.0001 MG/MG Vaginal Gel [Trimo Syed] Trimo-Syed 12/10/2020 12:00:00 AM EDT active [facility] ([facility] Metronidazole 500 MG Oral Tablet Metronidazole 12/10/2020 12:00:00 AM EDT ORAL active [facility] ([facility] Metronidazole 500 MG Oral Tablet METRONIDAZOLE 12/10/2020 12:0 0:00 AM EDT tablet 14 TAKE ONE TABLET BY MOUTH TWICE A DAY FOR 7 DAYS TAKE ONE TABLET BY MOUTH TWICE A DAY FOR 7 DAYS SOLD: 12/10/2020 [facility] Oxyquinoline Sulfate 0.54137 MG/MG / Sod ium Dodecyl Sulfate 0.0001 MG/MG Vaginal Gel [Trimo Syed] 0.025-0.01 % OXYQUINOLINE/SOD.LAURYL SULFAT 12/10/2020 12:00:00 AM EDT gel 113 USE VAGINALLY DIRECTED USE VAGINA LLY DIRECTED SOLD: 12/10/2020 [facility] Pessary 12/04/2020 12:00:00 AM EDT completed [facility] ([facility]) Metronidazole 500 MG Oral Tablet Metronidazole 11/27/2020 12:00:00 AM EDT ORAL active [facility] ([facility] Metronidazole 500 MG Oral Tablet METRONIDAZOLE 11/27/2020 12:0 0:00 AM EDT tablet 14 TAKE ONE TABLET BY MOUTH TWICE A DAY FOR 7 DAYS TAKE ONE TABLET BY MOUTH TWICE A DAY FOR 7 DAYS SOLD: 11/27/2020 [facility] 150 mg 10/21/2020 12:00:00 AM EDT tablet 1 TAKE ONE TABLET BY MOUTH FOR ONE DOSE TAKE ONE TABLET BY MOUTH FOR ONE DOSE SOLD: 10/21/2020 [facility] Fluconazole 150 MG Oral Tablet [Diflucan] Diflucan 10/21/2020 1 2:00:00 AM EDT ORAL completed [facility] ([facility]) atorvastatin 10 MG Oral Tablet Atorvastatin Calcium 07/22/2020 1 2:00:00 AM EST active [facility] ( [facility]) Psyllium 14.2 MG/ML Oral Suspension Metamucil 05/08/2020 12:00:[address] active [facility] ([facility]) levocetirizine dihydrochloride 5 MG Oral Tablet Levocetirizine Dihydrochloride 5 MG Levocetirizine Dihydrochloride 5 MG 05/02/2020 12:00:00 AM EST 1.0 {tablet_in_the_evening} active Levoceti rizine Dihydrochloride 5 MG eCW1 ([facility]) levocetirizine dihydrochloride 5 MG Oral Tablet Levocetirizine Dihydrochloride 5 MG Levocetirizine Dihydrochloride 5 MG 05/02/2020 12:00:00 AM EST 1.0 {tablet_in_the_evening} active Levoceti rizine Dihydrochloride 5 MG eCW1 ([facility]) Triamcinolone Acetonide 1 MG/ML Topical Cream Triamcin olone Acetonide 0.1 % Triamcinolone Acetonide 0.1 % 05/02/2020 12:00:00 AM EST 1.0 {appli cation} active Triamcinolone Acetonide 0 .1 % eCW1 ([facility]) Triamcinolone Acetonide 1 MG/ML Topical Cream Triamcin olone Acetonide 0.1 % Triamcinolone Acetonide 0.1 % 05/02/2020 12:00:00 AM EST 1.0 {appli cation} active Triamcinolone Acetonide 0 .1 % eCW1 ([facility]) Administration Of Flu Vaccine 02/13/2020 12:00:00 AM EDT completed [facility] ([facility]) Medication administered onsite Cyclosporine 0.5 MG/ML Ophthalmic Suspen jana [Restasis] Restasis 0.05% Ophthalmic Emulsion Restasis 0.05% Ophthalmic Emulsion 01/26/2020 12:00:00 AM EDT active cyclospo rine 0.5 MG/ML Ophthalmic Suspension [Restasis] CARA (Tressa Craig MD [facility]) Sertraline 50 MG Oral Tablet Sertraline HCL 01/02/2020 12:00:00 AM EDT ORAL completed [facility] ([facility]) Cyclosporine 0.5 MG/ML Ophthalmic Suspen jana [Restasis] Restasis 0.05% Ophthalmic Emulsion Restasis 0.05% Ophthalmic Emulsion 01/06/2019 12:00:00 AM EDT aborted cyclospo rine 0.5 MG/ML Ophthalmic Suspension [Restasis] CARA (Tressa Craig MD [facility]) Insurance Providers Payer name Policy type / Coverage type Policy ID Covered democrat ID Covered democrat's relationship to cruz Policy Cruz Plan Information [facility] [id number] 1 [id number] [facility] [id number] 1 [id number] Medicare Natl Govt Serv Medicare Primary [id number] Self [id number] Medicare Natl Govt Serv Medicare Primary [id number] Self [id number] Medicare Natl Govt Serv Medicare Primary [id number] Self [id number] MEDICARE A [id number] Self [id number] Medicare Natl Govt Serv Medicare Primary [id number] Self [id number] Medicare Natl Govt Serv Medicare Primary [id number] Self [id number] Medicare Natl Govt Serv Medicare Primary [id number] Self [id number] Medicare Natl Govt Servic Medicare Primary [id number] Self [id number] Medicare Natl Govt Servic Medicare Primary [id number] Self [id number] Medicare Natl Govt Servic Medicare Primary [id number] Self [id number] MEDICARE [id number] SP [id number] A Medicare Natl Govt Servic Medicare Primary [id number] Self Medicare Natl Govt Servic Medicare Primary [id number] Self [id number] Medicare Natl Govt Servic Medicare Primary [id number] Self [id number] Medicare Part B [facility] [id number] 0 [id number] Medicare Natl Govt Servic Medicare Primary [id number] Self [id number] [facility] [id number] BS EMPIRE MUSA DIV [id number] [id number] EMPIRE PLAN [facility] U [id number] Spouse [id number] MEDICARE [id number] SP [id number] A [facility] EMPIRE MUSA DIV [id number] [id number] [facility] [place] Medigap Part B [id number] Family Dependent [id number] Medicare [place] Medicare Primary [id number] Self [id number] [facility] [place] Medigap Part B [id number] Family Dependent [id number] [facility] [place] Medigap Part B [id number] Family Dependent [id number] [facility] [place] Medigap Part B [id number] Family Dependent [id number] [facility] [place] Medigap Part B [id number] Family Dependent [id number] [facility] [place] Medigap Part B [id number] Family Dependent [id number] [facility] [place] Medigap Part B [id number] Family Dep endent [facility] O [id number] [facility] [place] Medigap Part B [id number] Family Dependent [id number] [facility] [id number] HU2 89 [id number] MEDICARE [id number] SP [id number] UNITED HEALTHCARE [id number] SPO [id number] BCBS EMPIRE [id number] SPO [id number] [facility] MEDICARE DIVISION [id number] S [id number] MEDICARE - [place] [id number] S [id number] [facility] [id number] HU2 89 [id number] SELF PAY ONLY [id number] SP [id number] [facility] [employer] ([place]) - [employer] Other 0 [id number] Family Dependent Connor Rosalio 0 Medicare Part B [facility] Other 0 [id number] Self 0 MEDICARE C [id number] S [id number] EMPIRE ([facility]) O [id number] P [id number] [facility] Part B [id number] Family Dependent [id number] [facility] Part B [id number] Family Dependent [id number] [facility] Part B [id number] Family Dependent [id number] [facility] Part B [id number] Family Dependent [id number] [facility] Part B [id number] Family Dependent [id number] MEDICARE C [id number] S [id number] A [facility] Part B [id number] Family Dependent [id number] [facility] [id number] 2 [id number] Problems, Conditions, and Diagnoses Code Display Name Description Problem Type Effective Dates Data Source(s) N89.8 Other specified noninflammatory disorder s of vagina OTHER SPECIFIED NONINFLAMMATORY DISORDERS OF VAGIN Diagnosis 01/21/2021 10:00:00 AM ED T [facility] N81.10 Cystocele, unspecified CYSTOCELE, UNSPECIFIED Diagnosi s 01/21/2021 10:00:00 AM EDT [facility] Z12.83 [id number] Skin exam, screening for cancer Problem 10/29/2020 12:00:00 AM EDT eCW1 ([facility]) 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 Problem 10/29/2020 12:00:00 A M EDT eCW1 ([facility]) L82.1 [id number] Seborrheic keratoses Problem 10/29/2020 12:0 0:00 AM EDT eCW1 ([facility]) R21 [id number] Rash Problem 10/29/2020 12:00:00 AM ED T eCW1 ([facility]) Surgeries/Procedures Procedure Description Date Indications Data Source(s) OFFICE OUTPATIENT VISIT 25 MINUTES 02/25/2021 12:00:00 AM EDT MEDALIA ([facility]) ECG ROUTINE ECG W/LEAST 12 LDS W/I&R 02/25/2021 12:00: 00 AM EDT [facility] ([facility]) OFFICE OUTPATIENT VISIT 15 MINUTES 02/24/2021 12:00:00 AM EDT [facility] ([facility] OFFICE OUTPATIENT VISIT 25 MINUTES 02/11/2021 12:00:00 AM EDT [facility] OFFICE OUTPATIENT VISIT 25 MINUTES 01/28/2021 12:00:00 AM EDT [facility] ([facility]) OFFICE OUTPATIENT VISIT 25 MINUTES 01/07/2021 12:00:00 AM EDT [facility] ([facility]) Bone Mineral Density Test 12/17/2020 12:00:00 AM EDT [facility] ([facility]) OFFICE OUTPATIENT VISIT 25 MINUTES 12/17/2020 12:00:00 AM EDT [facility] ([facility]) Irrigation Of Vagina And/Or Application Of Medicament 12/10/2020 12:00:00 AM EDT [facility] ([facility] OFFICE OUTPATIENT VISIT 15 MINUTES 12/10/2020 12:00:00 AM EDT [facility] ([facility] OFFICE OUTPATIENT VISIT 25 MINUTES 12/04/2020 12:00:00 AM EDT [facility] ([facility]) OFFICE OUTPATIENT VISIT 15 MINUTES 11/27/2020 12:00:00 AM EDT [facility] ([facility]) Mammogram 11/25/2020 12:00:00 AM EDT M RAFAEL ([facility]) Pessary Fitting & Insertion Of Pessary/Intravaginal Support Constanza 11/19/2020 12:00:00 AM EDT [facility] ([facility]) OFFICE OUTPATIENT VISIT 15 MINUTES 10/17/2020 12:00:00 AM EDT [facility] ([facility]) OFFICE OUTPATIENT VISIT 15 MINUTES 09/25/2020 12:00:00 AM EDT [facility] ([facility]) Endoscopy Upper GI Biopsy 09/16/2020 12:00:00 AM EDT [facility] ([facility], ) OFFICE OUTPATIENT VISIT 25 MINUTES 08/08/2020 12:00:00 AM EDT [facility] ([facility]) Surgical / procedural history Endoscope 2017, Basal Cell excision 1996, trigger finger+thumb left hand surgery 10 years ago, colonoscopy 2014 Surgical / procedural history Endoscope 2017, Basal Cell excision 1996, trigger finger+thumb left hand surgery 10 years ago, colonoscopy 201403/26/2020 12:00:00 AM EST CARA (Tressa Craig MD [facility]) Cataract surgery (procedure) History of cataract surgery PC IOL OS 201103/26/2020 12:00:00 AM EST CARA (Tressa gibson MD [facility]) Closure of lacrimal punctum (procedure) History of william sure of lacrimal punctum of right lower eyelid by plug 03/26/2020 12:00:00 AM EST GRE ENWAY (Tressa Craig MD [facility]) Closure of lacrimal punctum (procedure) History of william sure of lacrimal punctum of left lower eyelid by plug 03/26/2020 12:00:00 AM EST GREE NWAY (Tressa Craig MD [facility]) Results ID Date Data Source [id number] 03/01/2021 11:20:00 AM EDT [facility] ([facility] [place] Name Value Range Interpretation Code Description Data Aisha rce(s) Supporting Document(s) Coronavirus 2019 Nasopharygeal Laboratory test result [facility] ([facility] [place] ASSAY INFORMATION: Real Time RT-PCR NOTE: The COVID-19 assay has been cleared by the U.S. Food and Drug Administration under the Emergency Use Authorization (EUA). [facility] and [facility] are designated as high complexity laboratories by the Clinical Laboratory Improvement Amendments of 1988(CLIA) and are qualified to perform this test. Not Detected ID Date Data Source [id number] 02/24/2021 08:21:00 AM EDT [facility] ([facility]) Name Value Range Interpretation Code Description Data Aisha rce(s) Supporting Document(s) Triglyceride [Mass/volume] in Serum or Plasma 45 mg/dL 30-150 [facility] ([facility]) Cholesterol [Mass/volume] in Serum or Plasma 184 mg/dL 131-200 [facility] ([facility]) Cholesterol in HDL [Mass/volume] in Serum or Plasma 99 mg/dL 35-60 [facility] ([facility]) Cholesterol in LDL [Mass/volume] in Serum or Plasma by calcu lation 76 CALC 50-159 [facility] ([facility]) ID Date Data Source [id number] 02/24/2021 08:21:00 AM EDT [facility] ([facility]) Name Value Range Interpretation Code Description Data Aisha rce(s) Supporting Document(s) Glucose [Mass/volume] in Serum or Plasma 96 mg/dL 74-99 [facility] ([facility]) NOTE: LYTES VERIFIED 100-125 mg/dL PRE-DIABETES/FASTING >126 mg/dL DIABETES/FASTING Urea nitrogen [Mass/volume] in Serum or Plasma 6 mg/dL 7-18 [facility] ([facility]) Creatinine 0.7 mg/dL 0.6-1.3 [facility]) Sodium [Moles/volume] in Serum or Plasma 134 meq/L 136-145 [facility] ([facility]) Potassium [Moles/volume] in Serum or Plasma 4.1 meq/L 3.5-5.1 [facility] ([facility]) Chloride [Moles/volume] in Serum or Plasma 96 meq/L 98-107 [facility] ([facility]) Carbon dioxide, total [Moles/volume] in Serum or Plasma 31 meq/L 21 -32 [facility] ([facility]) Calcium [Mass/volume] in Serum or Plasma 9.3 mg/dL 8.5-10.1 [facility] ([facility]) Glomerular filtration rate/1.73 sq M pre dicted among non-blacks [Volume Rate/Area] in Serum or Plasma by Creatinine-based formula (MDRD) Laboratory test result [facility] ([facility] [place] [facility] Glomerular filtration rate/1.73 sq M pre dicted among blacks [Volume Rate/Area] in Serum or Plasma by Creatinine-based formula (MDRD) Laboratory test result [facility] ([facility] [place] <content>CHRONIC KIDNEY DISEASE STAGING PER NKF</content>
<content></content>
<content>STAGE I & II GFR >= 60 NORMAL TO MILDLY DECREASED</content>
<content>STAGE III GFR 30-59 MODERATELY DECREASED</content>
<content>STAGE IV GFR 15-29 SEVERELY DECREASED</content>
<content>STAGE V GFR <15 VERY LITTLE GFR LEFT</content>
<content>ESRD GFR <15 ON PROJECT MANAGER ENTERTAINMENT AND MEDIA</content>
<content></content> ID Date Data Source [id number] 02/24/2021 08:21:00 AM EDT [facility] ([facility]) Name Value Range Interpretation Code Description Data Aisha rce(s) Supporting Document(s) Creatine kinase [Enzymatic activity/volume] in Serum or Plasma 87 U /L 26-192 [facility] ([facility] [place] ID Date Data Source [id number] 01/28/2021 02:25:00 PM EDT [facility] ([facility] [place] Name Value Range Interpretation Code Description Data Aisha rce(s) Supporting Document(s) Calcidiol [Mass/volume] in Serum or Plasma 54.0 ng/mL 24.0-80.0 [facility] ([facility] [place] This test was performed using [employer] I P Vitamin D immunoassay kit. Values obtained with different assay methods should not be used interchangeably. ID Date Data Source [id number] 01/28/2021 02:25:00 PM EDT [facility] ([facility] [place] Name Value Range Interpretation Code Description Data Aisha rce(s) Supporting Document(s) Creatinine 0.7 mg/dL 0.6-1.3 [facility] ([facility]) Urea nitrogen [Mass/volume] in Serum or Plasma 11 mg/dL 7-18 [facility] ([facility]) Glucose [Mass/volume] in Serum or Plasma 137 mg/dL 74-99 [facility] ([facility]) 100-125 mg/dL PRE-DIABETES/FASTING >126 mg/dL DIABETES/FASTING Potassium [Moles/volume] in Serum or Plasma 3.9 meq/L 3.5-5.1 [facility] ([facility]) Sodium [Moles/volume] in Serum or Plasma 137 meq/L 136-145 [facility] ([facility]) Chloride [Moles/volume] in Serum or Plasma 100 meq/L 98-107 [facility] ([facility]) Carbon dioxide, total [Moles/volume] in Serum or Plasma 31 meq/L 21 -32 [facility] ([facility]) Glomerular filtration rate/1.73 sq M pre dicted among non-blacks [Volume Rate/Area] in Serum or Plasma by Creatinine-based formula (MDRD) Laboratory test result [facility] ([facility] ) Calcium [Mass/volume] in Serum or Plasma 9.2 mg/dL 8.5-10.1 [facility] ([facility]) Glomerular filtration rate/1.73 sq M pre dicted among blacks [Volume Rate/Area] in Serum or Plasma by Creatinine-based formula (MDRD) Laboratory test result [facility] ([facility]) <content>CHRONIC KIDNEY DISEASE STAGING PER NKF</content>
<content></content>
<content>STAGE I & II GFR >= 60 NORMAL TO MILDLY DECREASED</content>
<content>STAGE III GFR 30-59 MODERATELY DECREASED</content>
<content>STAGE IV GFR 15-29 SEVERELY DECREASED</content>
<content>STAGE V GFR <15 VERY LITTLE GFR LEFT</content>
<content>ESRD GFR <15 ON PROJECT MANAGER ENTERTAINMENT AND MEDIA</content>
<content></content> ID Date Data Source [id number] 02/05/2021 07:22:00 PM EDT [facility] Clinical Info: SRC:CORETTAA duplicate repor t has been generated due to demographicupdate of the patient's , Age, Gender, and/or SpecimenDate. Please review patient results, reference intervals,and calculated results that may have been affected by thischange. Name Value Range Interpretation Code Description Data Aisha rce(s) Supporting Document(s) DEVAUGHN SPECIES Negative [facility] Reference: Negative GARDNERELLA VAGINALIS Negative [facility] Referenc e: Negative TRICHOMONAS VAGINALIS Negative [facility] Reference: Negative Performing Labs RN - [facility] [address],[address] Dir: Ileana Prescott MDFor Inquiries, the physician can contact Branch:[phone] Lab: [phone]: TRICHOMONAS VAG previously reported as: Negative Reference: Negative ID Date Data Source [id number] 01/15/2021 10:03:00 AM EDT [facility] ([facility]) Name Value Range Interpretation Code Description Data Aisha rce(s) Supporting Document(s) Glucose [Mass/volume] in Serum or Plasma 97 mg/dL 74-99 [facility] ([facility]) 100-125 mg/dL PRE-DIABETES/FASTING >126 mg/dL DIABETES/FASTING Creatinine 0.7 mg/dL 0.6-1.3 [facility]) Urea nitrogen [Mass/volume] in Serum or Plasma 9 mg/dL 7-18 [facility] ([facility]) Chloride [Moles/volume] in Serum or Plasma 100 meq/L 98-107 [facility] ([facility]) Sodium [Moles/volume] in Serum or Plasma 136 meq/L 136-145 [facility] ([facility]) Potassium [Moles/volume] in Serum or Plasma 4.5 meq/L 3.5-5.1 [facility] ([facility]) Calcium [Mass/volume] in Serum or Plasma 9.5 mg/dL 8.5-10.1 [facility] ([facility]) Carbon dioxide, total [Moles/volume] in Serum or Plasma 26 meq/L 21 -32 [facility] ([facility]) Glomerular filtration rate/1.73 sq M pre dicted among non-blacks [Volume Rate/Area] in Serum or Plasma by Creatinine-based formula (MDRD) Laboratory test result [facility] ([facility] ) Glomerular filtration rate/1.73 sq M pre dicted among blacks [Volume Rate/Area] in Serum or Plasma by Creatinine-based formula (MDRD) Laboratory test result [facility] ([facility]) <content>CHRONIC KIDNEY DISEASE STAGING PER NKF</content>
<content></content>
<content>STAGE I & II GFR >= 60 NORMAL TO MILDLY DECREASED</content>
<content>STAGE III GFR 30-59 MODERATELY DECREASED</content>
<content>STAGE IV GFR 15-29 SEVERELY DECREASED</content>
<content>STAGE V GFR <15 VERY LITTLE GFR LEFT</content>
<content>ESRD GFR <15 ON PROJECT MANAGER ENTERTAINMENT AND MEDIA</content>
<content></content> ID Date Data Source [id number] 01/07/2021 03:25:00 PM EDT [facility] ([facility]) Name Value Range Interpretation Code Description Data Aisha rce(s) Supporting Document(s) Glucose [Mass/volume] in Serum or Plasma 132 mg/dL 74-99 [facility] ([facility]) 100-125 mg/dL PRE-DIABETES/FASTING >126 mg/dL DIABETES/FASTING Sodium [Moles/volume] in Serum or Plasma 133 meq/L 136-145 [facility] ([facility]) Urea nitrogen [Mass/volume] in Serum or Plasma 11 mg/dL 7-18 [facility] ([facility]) Creatinine 0.7 mg/dL 0.6-1.3 [facility] ([facility]) Carbon dioxide, total [Moles/volume] in Serum or Plasma 32 meq/L 21 -32 [facility] ([facility]) Potassium [Moles/volume] in Serum or Plasma 3.5 meq/L 3.5-5.1 [facility] ([facility]) Chloride [Moles/volume] in Serum or Plasma 98 meq/L 98-107 [facility] ([facility]) Glomerular filtration rate/1.73 sq M pre dicted among blacks [Volume Rate/Area] in Serum or Plasma by Creatinine-based formula (MDRD) Laboratory test result [facility] ([facility]) <content>CHRONIC KIDNEY DISEASE STAGING PER NKF</content>
<content></content>
<content>STAGE I & II GFR >= 60 NORMAL TO MILDLY DECREASED</content>
<content>STAGE III GFR 30-59 MODERATELY DECREASED</content>
<content>STAGE IV GFR 15-29 SEVERELY DECREASED</content>
<content>STAGE V GFR <15 VERY LITTLE GFR LEFT</content>
<content>ESRD GFR <15 ON PROJECT MANAGER ENTERTAINMENT AND MEDIA</content>
<content></content> Glomerular filtration rate/1.73 sq M pre dicted among non-blacks [Volume Rate/Area] in Serum or Plasma by Creatinine-based formula (MDRD) Laboratory test result [facility] ([facility] ) Calcium [Mass/volume] in Serum or Plasma 9.1 mg/dL 8.5-10.1 [facility] ([facility]) ID Date Data Source [id number] 12/17/2020 01:45:00 PM EDT [facility] ([facility]) Name Value Range Interpretation Code Description Data Aisha rce(s) Supporting Document(s) Creatinine 0.7 mg/dL 0.6-1.3 [facility] Urea nitrogen [Mass/volume] in Serum or Plasma 11 mg/dL 7-18 [facility] ([facility]) Glucose [Mass/volume] in Serum or Plasma 148 mg/dL 74-99 [facility] ([facility]) 100-125 mg/dL PRE-DIABETES/FASTING >126 mg/dL DIABETES/FASTING Potassium [Moles/volume] in Serum or Plasma 3.7 meq/L 3.5-5.1 [facility] ([facility]) Chloride [Moles/volume] in Serum or Plasma 97 meq/L 98-107 [facility] ([facility]) Sodium [Moles/volume] in Serum or Plasma 134 meq/L 136-145 [facility] ([facility]) Calcium [Mass/volume] in Serum or Plasma 9.6 mg/dL 8.5-10.1 [facility] ([facility]) Carbon dioxide, total [Moles/volume] in Serum or Plasma 31 meq/L 21 -32 [facility] ([facility]) Glomerular filtration rate/1.73 sq M pre dicted among blacks [Volume Rate/Area] in Serum or Plasma by Creatinine-based formula (MDRD) Laboratory test result [facility] ([facility]) <content>CHRONIC KIDNEY DISEASE STAGING PER NKF</content>
<content></content>
<content>STAGE I & II GFR >= 60 NORMAL TO MILDLY DECREASED</content>
<content>STAGE III GFR 30-59 MODERATELY DECREASED</content>
<content>STAGE IV GFR 15-29 SEVERELY DECREASED</content>
<content>STAGE V GFR <15 VERY LITTLE GFR LEFT</content>
<content>ESRD GFR <15 ON PROJECT MANAGER ENTERTAINMENT AND MEDIA</content>
<content></content> Glomerular filtration rate/1.73 sq M pre dicted among non-blacks [Volume Rate/Area] in Serum or Plasma by Creatinine-based formula (MDRD) Laboratory test result [facility] ([facility] ) ID Date Data Source [id number] 12/17/2020 01:42:00 PM EDT [facility] ([facility]) Name Value Range Interpretation Code Description Data Aisha rce(s) Supporting Document(s) Bacteria identified in Genital specimen by Aerobe cult ure Laboratory test result [facility] ([facility] ) FULL RE[facility] NORMAL LIYAH PRESENT ORGANISM 1: YEAST LIKE ORGANISM QUANTITY OF GROWTH FEW ORGANISM 1: YEAST LIKE ORGANISM ID Date Data Source [id number] 12/03/2020 08:36:00 AM EDT [facility] [place] Name Value Range Interpretation Code Description Data Aisha rce(s) Supporting Document(s) Urine Color Laboratory test result [facility] ([facility]) Urine Appearance Laboratory test result Abnormal (applies to non-numeric results) [facility] Urine PH 8.0 units 5.0-9.0 [facility] Specific gravity of Urine 1.010 1.005-1.030 [facility] ([facility]) Urine Leukocytes Laboratory test result Abnormal (applies to non-numeric results) [facility] ([facility]) Urine Blood Laboratory test result [facility] ([facility]) Urine Protein Laboratory test result 0-0 [facility] ([facility] [place] Urine Nitrite Laboratory test result [facility] ([facility]) Urine Ketone Laboratory test result [facility] ([facility] [place] Glucose [Presence] in Urine Laboratory test result [facility] ([facility] [place] Bilirubin.total [Mass/volume] in Serum or Plasma Laboratory test resu lt [facility] ([facility] [place] Urine Urobilinogen 0.2 mg/dL 0.2-1.0 [facility] ([facility] [place] ID Date Data Source [id number] 12/03/2020 08:36:00 AM EDT [facility] ([facility] [place] Name Value Range Interpretation Code Description Data Aisha rce(s) Supporting Document(s) Thyrotropin [Units/volume] in Serum or Plasma by Detec tion limit <= 0.05 mIU/L 2.77 uIU/mL 0.36-3.74 [facility] ([facility] [place] [facility] ID Date Data Source [id number] 12/03/2020 08:36:00 AM EDT [facility] ([facility] [place] Name Value Range Interpretation Code Description Data Aisha rce(s) Supporting Document(s) Triglyceride [Mass/volume] in Serum or Plasma 44 mg/dL 30-150 [facility] ([facility]) Cholesterol [Mass/volume] in Serum or Plasma 166 mg/dL 131-200 [facility] ([facility]) Cholesterol in HDL [Mass/volume] in Serum or Plasma 111 mg/dL 35-60 [facility] ([facility]) Cholesterol in LDL [Mass/volume] in Serum or Plasma by calcu lation 46 CALC 50-159 [facility] ([facility] [place] ID Date Data Source [id number] 12/03/2020 08:36:00 AM EDT [facility] ([facility] [place] Name Value Range Interpretation Code Description Data Aisha rce(s) Supporting Document(s) Urea nitrogen [Mass/volume] in Serum or Plasma 8 mg/dL 7-18 [facility] ([facility]) Glucose [Mass/volume] in Serum or Plasma 104 mg/dL 74-99 [facility] ([facility]) 100-125 mg/dL PRE-DIABETES/FASTING >126 mg/dL DIABETES/FASTING Creatinine 0.7 mg/dL 0.6-1.3 [facility] ([facility]) Sodium [Moles/volume] in Serum or Plasma 134 meq/L 136-145 [facility] ([facility]) NOTE: LYTES VERIFIED Potassium [Moles/volume] in Serum or Plasma 3.9 meq/L 3.5-5.1 [facility] ([facility]) Chloride [Moles/volume] in Serum or Plasma 97 meq/L 98-107 [facility] ([facility]) Carbon dioxide, total [Moles/volume] in Serum or Plasma 29 meq/L 21 -32 [facility] ([facility]) Calcium [Mass/volume] in Serum or Plasma 9.4 mg/dL 8.5-10.1 [facility] ([facility]) Alkaline phosphatase isoenzyme [Units/volume] in Serum or Pl asma 75 mg/dL 46-116 [facility] ([facility]) Total Bilirubin 0.9 mg/dL 0.2-1.0 [facility] ([facility]) Alanine aminotransferase [Enzymatic activity/volume] in Seru m or Plasma 31 U/L 12-78 [facility] ([facility]) Aspartate aminotransferase [Enzymatic activity/volume] in Serum or Plasma 32 U/L 15-37 [facility] ([facility] ) Albumin [Mass/volume] in Serum or Plasma 4.0 g/dL 3.4-5.0 [facility] ([facility]) Proteinase 3 Ab [Units/volume] in Serum 7.3 g/dL 6.4-8.2 [facility] ([facility]) A/G Ratio 1.21 CALC 1.00-1.90 [facility] ([facility]) Glomerular filtration rate/1.73 sq M pre dicted among blacks [Volume Rate/Area] in Serum or Plasma by Creatinine-based formula (MDRD) Laboratory test result [facility] ([facility] [place] <content>CHRONIC KIDNEY DISEASE STAGING PER NKF</content>
<content></content>
<content>STAGE I & II GFR >= 60 NORMAL TO MILDLY DECREASED</content>
<content>STAGE III GFR 30-59 MODERATELY DECREASED</content>
<content>STAGE IV GFR 15-29 SEVERELY DECREASED</content>
<content>STAGE V GFR <15 VERY LITTLE GFR LEFT</content>
<content>ESRD GFR <15 ON PROJECT MANAGER ENTERTAINMENT AND MEDIA</content>
<content></content> Glomerular filtration rate/1.73 sq M pre dicted among non-blacks [Volume Rate/Area] in Serum or Plasma by Creatinine-based formula (MDRD) Laboratory test result [facility] ([facility] [place] [facility] ID Date Data Source [id number] 12/03/2020 08:36:00 AM EDT [facility] ([facility] [place] Name Value Range Interpretation Code Description Data Aisha rce(s) Supporting Document(s) Magnesium 1.8 mg/dL 1.8-2.4 [facility] ([facility]) Creatine kinase [Enzymatic activity/volume] in Serum or Plasma 88 U /L 26-192 [facility] ([facility] [place] ID Date Data Source [id number] 12/03/2020 08:36:00 AM EDT [facility] ([facility] [place] Name Value Range Interpretation Code Description Data Aisha rce(s) Supporting Document(s) Erythrocytes [#/volume] in Blood by Automated count 4.38 x10*6/UL 4.2 0-6.30 [facility] ([facility] [place] Leukocytes [#/volume] in Blood by Automated count 6.5 x10*3/UL 4.1-10 .9 [facility] ([facility] [place]) Hematocrit [Volume Fraction] of Blood by Automated count 41.2 % 3 7.0-51.0 [facility] ([facility] [place]) Hemoglobin [Mass/volume] in Blood 14.3 g/dL 12.0-18.0 [facility] ([facility]) MCH 32.6 pg 26.0-32.0 [facility] ([facility]) MCV 94.0 fL 80.0-97.0 [facility] ([facility]) Erythrocyte distribution width [Ratio] by Automated count 12.6 % 11.6-13.7 [facility] ([facility] [place]) MCHC 34.7 g/dL 31.0-38.0 [facility] ([facility]) Platelets [#/volume] in Blood by Automated count 294 x10*3/UL 140-440 [facility] ([facility]) MPV 7.2 FL 7.8-11.0 [facility] ([facility]) Mid % 6.6 % 1.7-9.3 [facility] ([facility]) Lymph % 21.4 % 10.0-58.5 [facility] ([facility] Neut % 72.0 % 37.0-92.0 [facility] ([facility]) Lymph # 1.4 x10*3/UL 0.6-4.1 [facility] ([facility]) Neut # 4.7 x10*3/UL 2.0-7.8 [facility] ([facility]) Mid # 0.4 x10*3/UL 0.1-0.6 [facility] ([facility]) ID Date Data Source [id number] 11/25/2020 08:59:00 AM EDT [facility] ([facility] [place]) Name Value Range Interpretation Code Description Data Aisha rce(s) Supporting Document(s) Dexa/Bone Density Laboratory test result [facility] ([facility] [place] 3D Bi-Lateral Mammogram Laboratory test result [facility] ([facility]) ID Date Data Source [id number] 10/17/2020 02:31:00 PM EDT [facility] ([facility] [place]) Name Value Range Interpretation Code Description Data Aisha rce(s) Supporting Document(s) Bacteria identified in Genital specimen by Aerobe cult ure Laboratory test result [facility] ([facility] ) FULL REPORT IN LAB NOTES (eCW and [facility] ). NORMAL LIYAH PRESENT ORGANISM 1: YEAST LIKE ORGANISM QUANTITY OF GROWTH FEW ORGANISM 1: YEAST LIKE ORGANISM ID Date Data Source [id number] 09/16/2020 04:18:00 PM EDT [facility] ([facility]) Name Value Range Interpretation Code Description Data Aisha rce(s) Supporting Document(s) Surgical pathology study Laboratory test result [facility] ([facility]) FINAL DIAGNOSIS Below Z line, biopsy: Junctional mucosa with mild chronic inflammation. No evidence for intestinal metaplasia. 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 All in one. -SV 09/17/2020 - 1007 Signed SANIA CEDILLO MD 09/18/2020 1252 ID Date Data Source [id number] 09/11/2020 11:25:00 AM EDT [facility] Name Value Range Interpretation Code Description Data Aisha rce(s) Supporting Document(s) SARS-CoV-2 (COVID-19) RNA [Presence] in Respiratory specimen by SHELIA with probe detection Not Detected [facility] This lab was ordered by [facility] and reported by [employer]. ID Date Data Source [id number] 08/07/2020 08:37:00 AM EDT [facility] ([facility]) Name Value Range Interpretation Code Description Data Aisha rce(s) Supporting Document(s) Triglyceride [Mass/volume] in Serum or Plasma 79 mg/dL 30-150 [facility] ([facility]) Cholesterol [Mass/volume] in Serum or Plasma 212 mg/dL 131-200 [facility] ([facility]) Cholesterol in LDL [Mass/volume] in Serum or Plasma by calcu lation 105 CALC 50-159 [facility] ([facility]) Cholesterol in HDL [Mass/volume] in Serum or Plasma 91 mg/dL 35-60 [facility] ([facility]) ID Date Data Source [id number] 08/07/2020 08:37:00 AM EDT [facility] ([facility]) Name Value Range Interpretation Code Description Data Aisha rce(s) Supporting Document(s) Glucose [Mass/volume] in Serum or Plasma 104 mg/dL 74-99 [facility] ([facility]) 100-125 mg/dL PRE-DIABETES/FASTING >126 mg/dL DIABETES/FASTING Creatinine 0.7 mg/dL 0.6-1.3 [facility] ([facility]) Urea nitrogen [Mass/volume] in Serum or Plasma 11 mg/dL 7-18 [facility] ([facility]) Potassium [Moles/volume] in Serum or Plasma 3.9 meq/L 3.5-5.1 [facility] ([facility]) Sodium [Moles/volume] in Serum or Plasma 135 meq/L 136-145 [facility] ([facility]) NOTE: RESULT VERIFIED. Carbon dioxide, total [Moles/volume] in Serum or Plasma 27 meq/L 21 -32 [facility] ([facility]) Calcium [Mass/volume] in Serum or Plasma 9.1 mg/dL 8.5-10.1 [facility] ([facility]) Chloride [Moles/volume] in Serum or Plasma 96 meq/L 98-107 [facility] ([facility]) Glomerular filtration rate/1.73 sq M pre dicted among blacks [Volume Rate/Area] in Serum or Plasma by Creatinine-based formula (MDRD) Laboratory test result [facility] ([facility] [place] <content>CHRONIC KIDNEY DISEASE STAGING PER NKF</content>
<content></content>
<content>STAGE I & II GFR >= 60 NORMAL TO MILDLY DECREASED</content>
<content>STAGE III GFR 30-59 MODERATELY DECREASED</content>
<content>STAGE IV GFR 15-29 SEVERELY DECREASED</content>
<content>STAGE V GFR <15 VERY LITTLE GFR LEFT</content>
<content>ESRD GFR <15 ON PROJECT MANAGER ENTERTAINMENT AND MEDIA</content>
<content></content> Glomerular filtration rate/1.73 sq M pre dicted among non-blacks [Volume Rate/Area] in Serum or Plasma by Creatinine-based formula (MDRD) Laboratory test result [facility] ([facility] ) ID Date Data Source [id number] 05/22/2020 12:00:00 PM EST [facility] ([facility] Name Value Range Interpretation Code Description Data Aisha rce(s) Supporting Document(s) TP Reflex HPV ASCUS Laboratory test result [facility] ([facility]) SPECIMEN PART------ A. Cervical, Endocervical, ThinPrep Pap ([employer]) CYTOLOGY HX-------- Other Information: Previous Normal Pap Post-menopausal FINAL DIAGNOSIS---- INTERPRETATION: Negative for Intraepithelial Lesion or Malignancy. SPECIMEN ADEQUACY:Satisfactory for evaluation. Endocervical/transformation zone component present. TP Reflex HPV ASCUS Laboratory test result [facility] ([employer] [facility]) ID Date Data Source [id number] 05/07/2020 08:09:00 AM EST [facility] ([facility]) Name Value Range Interpretation Code Description Data Aisha rce(s) Supporting Document(s) Cholesterol [Mass/volume] in Serum or Plasma 194 mg/dL 131-200 [facility] ([facility]) Cholesterol in HDL [Mass/volume] in Serum or Plasma 88 mg/dL 35-60 [facility] ([facility]) Triglyceride [Mass/volume] in Serum or Plasma 67 mg/dL 30-150 [facility] ([facility]) Cholesterol in LDL [Mass/volume] in Serum or Plasma by calcu lation 93 CALC 50-159 [facility] ([facility]) ID Date Data Source [id number] 05/07/2020 08:09:00 AM EST [facility] ([facility]) Name Value Range Interpretation Code Description Data Aisha rce(s) Supporting Document(s) Glucose [Mass/volume] in Serum or Plasma 93 mg/dL 74-99 [facility] ([facility]) 100-125 mg/dL PRE-DIABETES/FASTING >126 mg/dL DIABETES/FASTING Urea nitrogen [Mass/volume] in Serum or Plasma 13 mg/dL 7-18 [facility] ([facility]) Creatinine 0.8 mg/dL 0.6-1.3 [facility] ([facility]) Sodium [Moles/volume] in Serum or Plasma 135 meq/L 136-145 [facility] ([facility]) Chloride [Moles/volume] in Serum or Plasma 97 meq/L 98-107 [facility] ([facility]) Potassium [Moles/volume] in Serum or Plasma 3.8 meq/L 3.5-5.1 [facility] ([facility] [place] Calcium [Mass/volume] in Serum or Plasma 8.8 mg/dL 8.5-10.1 [facility] [place] Carbon dioxide, total [Moles/volume] in Serum or Plasma 32 meq/L 21 -32 [facility] ([facility] [place]) Glomerular filtration rate/1.73 sq M pre dicted among non-blacks [Volume Rate/Area] in Serum or Plasma by Creatinine-based formula (MDRD) Laboratory test result [facility] ([facility] ) Glomerular filtration rate/1.73 sq M pre dicted among blacks [Volume Rate/Area] in Serum or Plasma by Creatinine-based formula (MDRD) Laboratory test result [facility] ([facility]) <content>CHRONIC KIDNEY DISEASE STAGING PER NKF</content>
<content></content>
<content>STAGE I & II GFR >= 60 NORMAL TO MILDLY DECREASED</content>
<content>STAGE III GFR 30-59 MODERATELY DECREASED</content>
<content>STAGE IV GFR 15-29 SEVERELY DECREASED</content>
<content>STAGE V GFR <15 VERY LITTLE GFR LEFT</content>
<content>ESRD GFR <15 ON PROJECT MANAGER ENTERTAINMENT AND MEDIA</content>
<content></content> ID Date Data Source [id number] 05/02/2020 10:45:00 AM EST [facility] ([facility] [place] Name Value Range Interpretation Code Description Data Aisha rce(s) Supporting Document(s) Laboratory test finding (navigational concept) Laboratory test result [facility] ([facility]) Test: COVID-19 Nasal/Naspharynx Result: NOT DETECTED Reference Units: Not detected Note: Please consider re-collection of a new specimen, if clinically indicated. Note: The COVID-19 assay is under Emergency Use Authorization(EUA) by the U.S. Food and Drug Administration. [facility] is designated as a high complexity laboratory by the Clinical Laboratory Improvement Amendments of 1988(CLIA) and is qualified to perform this test. ASSAY INFORMATION: Real Time RT-PCR ID Date Data Source [id number] 05/02/2020 12:00:00 AM EST [facility] Name Value Range Interpretation Code Description Data Aisha rce(s) Supporting Document(s) SARS-CoV-2 (COVID-19) RNA [Presence] in Respiratory specimen by SHELIA with probe detection [facility] This lab was ordered by [facility] and reported by [employer]. ID Date Data Source [id number] 01/15/2020 02:01:00 PM EDT [facility] ([facility]) Name Value Range Interpretation Code Description Data Aisha rce(s) Supporting Document(s) Thyrotropin [Units/volume] in Serum or Plasma by Detec tion limit <= 0.05 mIU/L 1.97 uIU/mL 0.36-3.74 [facility] ([facility] ) ID Date Data Source [id number] 01/15/2020 02:01:00 PM EDT [facility] ([facility] [place] Name Value Range Interpretation Code Description Data Aisha rce(s) Supporting Document(s) Glucose [Mass/volume] in Serum or Plasma 174 mg/dL 74-99 [facility] ([facility]) 100-125 mg/dL PRE-DIABETES/FASTING >126 mg/dL DIABETES/FASTING Urea nitrogen [Mass/volume] in Serum or Plasma 8 mg/dL 7-18 [facility] ([facility]) Sodium [Moles/volume] in Serum or Plasma 135 meq/L 136-145 [facility] ([facility]) NOTE: RESULT VERIFIED. Creatinine 0.8 mg/dL 0.6-1.3 [facility] ([facility]) Potassium [Moles/volume] in Serum or Plasma 3.8 meq/L 3.5-5.1 [facility] ([facility]) Carbon dioxide, total [Moles/volume] in Serum or Plasma 30 meq/L 21 -32 [facility] ([facility]) Calcium [Mass/volume] in Serum or Plasma 9.4 mg/dL 8.5-10.1 [facility] ([facility]) Chloride [Moles/volume] in Serum or Plasma 97 meq/L 98-107 [facility] ([facility]) Glomerular filtration rate/1.73 sq M pre dicted among non-blacks [Volume Rate/Area] in Serum or Plasma by Creatinine-based formula (MDRD) Laboratory test result [facility] ([facility] [place] [facility] Glomerular filtration rate/1.73 sq M pre dicted among blacks [Volume Rate/Area] in Serum or Plasma by Creatinine-based formula (MDRD) Laboratory test result [facility] ([facility] [place] <content>CHRONIC KIDNEY DISEASE STAGING PER NKF</content>
<content></content>
<content>STAGE I & II GFR >= 60 NORMAL TO MILDLY DECREASED</content>
<content>STAGE III GFR 30-59 MODERATELY DECREASED</content>
<content>STAGE IV GFR 15-29 SEVERELY DECREASED</content>
<content>STAGE V GFR <15 VERY LITTLE GFR LEFT</content>
<content>ESRD GFR <15 ON PROJECT MANAGER ENTERTAINMENT AND MEDIA</content>
<content></content> ID Date Data Source [id number] 01/15/2020 02:01:00 PM EDT [facility] ([facility]) Name Value Range Interpretation Code Description Data Aisha rce(s) Supporting Document(s) Magnesium 2.0 mg/dL 1.8-2.4 [facility] ([facility]) ID Date Data Source [id number] 01/15/2020 02:01:00 PM EDT [facility] ([facility]) Name Value Range Interpretation Code Description Data Aisha rce(s) Supporting Document(s) Hemoglobin [Mass/volume] in Blood 14.1 g/dL 12.0-18.0 [facility] ([facility]) Erythrocytes [#/volume] in Blood by Automated count 4.32 x10*6/UL 4.2 0-6.30 [facility] ([facility]) Leukocytes [#/volume] in Blood by Automated count 7.1 x10*3/UL 4.1-10 .9 [facility] ([facility]) Hematocrit [Volume Fraction] of Blood by Automated count 39.8 % 3 7.0-51.0 [facility] ([facility]) MCV 92.2 fL 80.0-97.0 [facility] MCH 32.7 pg 26.0-32.0 [facility] ([facility]) Platelets [#/volume] in Blood by Automated count 317 x10*3/UL 140-440 [facility] ([facility]) Erythrocyte distribution width [Ratio] by Automated count 12.1 % 11.6-13.7 [facility] ([facility]) MCHC 35.5 g/dL 31.0-38.0 [facility] Neut % 76.9 % 37.0-92.0 [facility] Mid % 5.9 % 1.7-9.3 [facility] Lymph % 17.2 % 10.0-58.5 [facility] ([facility] MPV 7.2 FL 7.8-11.0 [facility] Mid # 0.4 x10*3/UL 0.1-0.6 [facility] ([facility]) Neut # 5.5 x10*3/UL 2.0-7.8 [facility] ([facility]) Lymph # 1.2 x10*3/UL 0.6-4.1 [facility] ([facility]) Procedure Social History Code Duration Value Status Description Data Source(s ) Smoking 02/11/2021 12:00:00 AM EDT Patient has never smoked co mpleted Patient has never smoked [facility] ([employer]) Smoking 10/31/2020 12:00:00 AM EDT Never Smoker completed Never S moker eCW1 ([facility]) Smoking 05/02/2020 12:00:00 AM EST Never Smoker completed Never S moker eCW1 ([facility]) Smoking 03/26/2020 09:59:07 AM EST Ex-smoker (finding) complet ed Ex-smoker (finding) CARA (Tressa Craig MD [facility]) Vital Signs ID Date Data Source [id number] Name Value Range Interpretation Code Description Data Source(s) Systolic blood pressure 130 mm[Hg] 130 mm[Hg] M [facility] ([facility]) Heart rate 87 /min 87 /min [facility] ([facility]) Diastolic blood pressure 80 mm[Hg] 80 mm[Hg] [facility] ([facility]) Body height 60.25 [in_i] 60.25 [in_i] [facility] ([facility] 5'0.25" Body weight 114.00 [lb_av] 114.00 [lb_av] [facility] ([facility]) Body mass index (BMI) [Ratio] 22.1 kg/m2 22.1 k g/m2 [facility] ([facility]) Systolic blood pressure 140 mm[Hg] 140 mm[Hg] [facility] Diastolic blood pressure 80 mm[Hg] 80 mm[Hg] [facility] ([employer] [facility]) Diastolic blood pressure 80 mm[Hg] 80 mm[Hg] [facility] ([facility]) RT Arm Systolic blood pressure 144 mm[Hg] 144 mm[Hg] M [facility]ENT ([facility]) RT Arm Heart rate 104 /min 104 /min [facility] ([facility]) Body height 60.25 [in_i] 60.25 [in_i] [facility] 5'0.25" Body weight 114.50 [lb_av] 114.50 [lb_av] [facility] ([facility]) Body mass index (BMI) [Ratio] 22.2 kg/m2 22.2 k g/m2 [facility] ([facility]) Systolic blood pressure 132 mm[Hg] 132 mm[Hg] M [facility]ENT ([facility]) RT Arm Heart rate 80 /min 80 /min [facility] Body mass index (BMI) [Ratio] 22.5 kg/m2 22.5 k g/m2 [facility] ([facility]) Body weight 116.00 [lb_av] 116.00 [lb_av] [facility] T ([facility]) Diastolic blood pressure 86 mm[Hg] 86 mm[Hg] [facility] ([facility]) RT Arm Body height 60.25 [in_i] 60.25 [in_i] [facility] ([facility] 5'0.25" Body weight 115.00 [lb_av] 115.00 [lb_av] [facility] T ([facility]) Systolic blood pressure 142 mm[Hg] 142 mm[Hg] M EDENT ([facility]) RT Arm Diastolic blood pressure 80 mm[Hg] 80 mm[Hg] [facility] ([facility]) RT Arm Heart rate 88 /min 88 /min [facility] ([facility]) Body height 60.25 [in_i] 60.25 [in_i] [facility] 5'0.25" Body mass index (BMI) [Ratio] 22.3 kg/m2 22.3 k g/m2 [facility] ([facility]) Body height 60.25 [in_i] 60.25 [in_i] [facility] 5'0.25" Systolic blood pressure 132 mm[Hg] 132 mm[Hg] M [facility] ([facility]) RT Arm Body mass index (BMI) [Ratio] 22.7 kg/m2 22.7 k g/m2 [facility] ([facility]) Diastolic blood pressure 80 mm[Hg] 80 mm[Hg] [facility] ([facility]) RT Arm Heart rate 80 /min 80 /min [facility] Body weight 117.00 [lb_av] 117.00 [lb_av] [facility] T ([facility]) Body weight 116 [lb_av] 116 [lb_av] eCW1 ([facility]) Body height 60.5 [in_i] 60.5 [in_i] eCW1 ([facility]) Body mass index (BMI) [Ratio] 22.28 kg/m2 22.28 kg/m2 eCW1 ([facility]) Systolic blood pressure 128 mm[Hg] 128 mm[Hg] e CW1 ([facility]) Diastolic blood pressure 74 mm[Hg] 74 mm[Hg] eCW1 ([facility]) Diastolic blood pressure 82 mm[Hg] 82 mm[Hg] [facility] ([facility]) RT Arm Body weight 118.00 [lb_av] 118.00 [lb_av] [facility] T ([facility]) Body mass index (BMI) [Ratio] 22.9 kg/m2 22.9 k g/m2 [facility] ([facility]) Systolic blood pressure 148 mm[Hg] 148 mm[Hg] M EDENT ([facility]) RT Arm Heart rate 92 /min 92 /min MEDENT ([facility]) Body height 60.25 [in_i] 60.25 [in_i] [facility] 5'0.25" Body height 60.25 [in_i] 60.25 [in_i] [facility] 5'0.25" Body mass index (BMI) [Ratio] 23.0 kg/m2 23.0 k g/m2 MEDENT ([facility]) Systolic blood pressure 146 mm[Hg] 146 mm[Hg] M EDENT ([facility]) RT Arm Diastolic blood pressure 80 mm[Hg] 80 mm[Hg] MEDENT ([facility]) RT Arm Systolic blood pressure 136 mm[Hg] 136 mm[Hg] M EDENT ([facility]) Diastolic blood pressure 78 mm[Hg] 78 mm[Hg] MEDENT ([facility]) Heart rate 80 /min 80 /min MEDENT ([facility]) Body weight 119.00 [lb_av] 119.00 [lb_av] MEDEN T ([facility]) Systolic blood pressure 178 mm[Hg] 178 mm[Hg] M EDENT ([facility]) Diastolic blood pressure 99 mm[Hg] 99 mm[Hg] MEDENT ([facility]) Body weight 119.00 [lb_av] 119.00 [lb_av] MEDEN T ([facility]) Body height 60 [in_i] 60 [in_i] MEDENT ([facility]) 5'0" Body mass index (BMI) [Ratio] 23.2 kg/m2 23.2 k g/m2 [facility] ([facility]) Buena body weight 100 [lb_av] 100 [lb_av] MEDEN T ([facility]) Body weight 53.978 kg 53.978 kg [facility] ([facility]) Body surface area Derived from formula 1.50 m2 1.50 m2 [facility] ([facility]) Body height 59.50 [in_i] 59.50 [in_i] MEDENT ([facility] 4'11.50" Diastolic blood pressure 78 mm[Hg] 78 mm[Hg] MEDENT ([facility] Body surface area Derived from formula 1.48 m2 1.48 m2 [facility] ([facility]) Body mass index (BMI) [Ratio] 23.2 kg/m2 23.2 k g/m2 MEDENT ([facility]) Systolic blood pressure 162 mm[Hg] 162 mm[Hg] M EDENT ([facility]) Body weight 117.00 [lb_av] 117.00 [lb_av] MEDEN T ([facility]) Body height 60.25 [in_i] 60.25 [in_i] [facility] 5'0.25" Body weight 123.00 [lb_av] 123.00 [lb_av] MEDEN T ([facility]) Diastolic blood pressure 80 mm[Hg] 80 mm[Hg] MEDENT ([facility]) RT Arm Systolic blood pressure 138 mm[Hg] 138 mm[Hg] M EDENT ([facility]) Diastolic blood pressure 80 mm[Hg] 80 mm[Hg] MEDENT ([facility]) Heart rate 80 /min 80 /min [facility] Body mass index (BMI) [Ratio] 23.8 kg/m2 23.8 k g/m2 MEDENT ([facility]) Systolic blood pressure 146 mm[Hg] 146 mm[Hg] M EDENT ([facility]) RT Arm Body weight 119 [lb_av] 119 [lb_av] eCW1 ([facility]) Body height 60.5 [in_i] 60.5 [in_i] eCW1 ([facility]) Body mass index (BMI) [Ratio] 22.86 kg/m2 22.86 kg/m2 eCW1 ([facility]) Systolic blood pressure 126 mm[Hg] 126 mm[Hg] e CW1 ([facility]) Diastolic blood pressure 76 mm[Hg] 76 mm[Hg] eCW1 ([facility]) Body weight 117.50 [lb_av] 117.50 [lb_av] MEDEN T ([facility]) Body mass index (BMI) [Ratio] 22.8 kg/m2 22.8 k g/m2 MEDENT ([facility]) Body height 60.25 [in_i] 60.25 [in_i] [facility] 5'0.25" Systolic blood pressure 136 mm[Hg] 136 mm[Hg] M EDENT ([facility]) RT Arm Diastolic blood pressure 74 mm[Hg] 74 mm[Hg] MEDENT ([facility]) RT Arm Heart rate 88 /min 88 /min [facility] ([facility]) Heart rate 76 /min 76 /min [facility] ([facility]) Body height 60.25 [in_i] 60.25 [in_i] [facility] 5'0.25" Body weight 117.00 [lb_av] 117.00 [lb_av] MEDEN T ([facility]) Systolic blood pressure 126 mm[Hg] 126 mm[Hg] M EDENT ([facility]) RT Arm Diastolic blood pressure 72 mm[Hg] 72 mm[Hg] MEDENT ([facility]) RT Arm Body mass index (BMI) [Ratio] 22.7 kg/m2 22.7 k g/m2 [facility] ([facility]) Systolic blood pressure 128 mm[Hg] 128 mm[Hg] M [facility] ([facility]) RT Arm Diastolic blood pressure 76 mm[Hg] 76 mm[Hg] [facility] ([facility]) RT Arm Heart rate 80 /min 80 /min [facility] ([facility]) Body height 60.25 [in_i] 60.25 [in_i] MEDENT ([facility]) 5'0.25" Body weight 117.00 [lb_av] 117.00 [lb_av] [facility] [place] ([facility]) Body mass index (BMI) [Ratio] 22.7 kg/m2 22.7 k g/m2 [facility] ([facility]) Systolic blood pressure 146 mm[Hg] 146 mm[Hg] [facility] ([facility]) RT Arm Body weight 115.50 [lb_av] 115.50 [lb_av] [facility] Body mass index (BMI) [Ratio] 22.4 kg/m2 22.4 k g/m2 [facility] ([facility]) Body height 60.25 [in_i] 60.25 [in_i] [facility] 5'0.25" Diastolic blood pressure 80 mm[Hg] 80 mm[Hg] [facility] ([facility]) RT Arm Heart rate 96 /min 96 /min [facility] ([facility]) Patient Treatment Plan of Care Planned Activity Planned Date Details Description Data Source (s) Triamcinolone Acetonide 1 MG/ML Topical Cream 05/02/2020 12:00:00 A M EST eCW1 ([facility]) levocetirizine dihydrochloride 5 MG Oral Tablet 05/02/2020 12:00:00 AM EST eCW1 ([facility]) Cyclosporine 0.5 MG/ML Ophthalmic Suspension [Restasis ] 01/26/2020 12:00:00 AM RISHIT CARA (Tressa Craig MD [facility]) Cyclosporine 0.5 MG/ML Ophthalmic Suspension [Restasis ] 01/06/2019 12:00:00 AM JHONNY MARROQUIN (Tressa Craig MD [facility])
[2021-03-06 06:43] LABS: HEMATOCRIT 40.7 % (36.0-47.0); HEMOGLOBIN 14.2 g/dl (12.0-15.5); MEAN CORPUSCULAR HEMOGLOBIN 33.4 pg (27.0-33.0); MEAN CORPUSCULAR HGB CONC 34.9 g/dl (32.0-36.5); MEAN CORPUSCULAR VOLUME 95.8 fl (80.0-96.0); PLATELET COUNT, AUTOMATED 297 10^3/uL (150-450); RED BLOOD COUNT 4.25 10^6/uL (4.00-5.40); WHITE BLOOD COUNT 7.8 10^3/uL (4.0-10.0)
[2021-03-06] MEDS ORDERED: VASOPRESSIN INJ 20 UNITS/ML VIAL As Ordered ONE (07:11)
[2021-03-06] MEDS ORDERED: ceFAZolin SOD 2 GM in IV 1 EA IV ONE (07:30)
[2021-03-06] MEDS ORDERED: LR 1,000 ML IV ONE (07:40)
[2021-03-06] MEDS ORDERED: ONDANSETRON 4MG/2ML VIAL As Ordered ONE (07:58)
[2021-03-06] MEDS ORDERED: SUGAMMADEX SODIUM 500 MG/5 ML VIAL (BRIDION) As Ordered ONE (07:58)
[2021-03-06] MEDS ORDERED: propofoL 200 MG/20 ML VIAL As Ordered ONE (07:58)
[2021-03-06] MEDS ORDERED: fentaNYL 100 MCG/2 ML INJECTION (J3010) As Ordered ONE (07:58)
[2021-03-06] MEDS ORDERED: HYDROmorphone HCL 2 MG/ML 1ML VIAL As Ordered ONE (07:58)
[2021-03-06] MEDS ORDERED: dexameTHASONE 4 MG/ML 1ML VIAL (J1100 PER 1MG) As Ordered ONE (07:58)
[2021-03-06] MEDS ORDERED: ROCURONIUM BROMIDE 50 MG/5 ML VIAL As Ordered ONE ×2 (07:58→09:02)
[2021-03-06] MEDS ORDERED: LIDOCAINE 2% 100MG/5ML SDV (FOR ANES.) As Ordered ONE (07:58)
[2021-03-06] MEDS ORDERED: ePHEDrine SULFATE 25 MG/5 ML(5MG/ML) SYRINGE As Ordered ONE (07:58)
[2021-03-06] MEDS ORDERED: MIDAZOLAM INJ 2MG/2ML VIAL (J2250 PER 1MG) As Ordered ONE (07:58)
[2021-03-06] MEDS ORDERED: ACETAMINOPHEN 1000MG 100ML IV BTL (OFIRMEV) (J0131 PER 10MG) As Ordered ONE (08:06)
[2021-03-06] MEDS ORDERED: PHENYLephrine 500MCG 5ML (100MCG/ML) SYRINGE As Ordered ONE (10:46)
[2021-03-06] MEDS ORDERED: oxyCODONE 5MG TAB PO PRN (11:45)
[2021-03-06] MEDS ORDERED: LR 1,000 ML IV SCH (11:45)
[2021-03-06] MEDS ORDERED: ONDANSETRON 4MG/2ML VIAL IV PRN (11:45)
[2021-03-06] MEDS ORDERED: fentaNYL 100 MCG/2 ML INJECTION (J3010) IV PRN (11:45)
[2021-03-06] MEDS ORDERED: NALBUPHINE HCL 10 MG/ML AMP (J2300) IV PRN (12:30)
[2021-03-06] MEDS ORDERED: NALOXONE INJ 0.4MG/1ML VIAL (J2310 PER 1MG) IV PRN (12:30)
[2021-03-06] MEDS ORDERED: diphenhydrAMINE 50MG/ML VIAL (J1200) IV PRN (12:30)
[2021-03-06] MEDS ORDERED: NS 1,000 ML IV SCH (12:30)
[2021-03-06] MEDS ORDERED: EPIDURAL/PCA KEYS XX PRN (12:30)
[2021-03-06] MEDS ORDERED: MORPHINE 1MG/ML IN 0.9% NACL 100ML IV BAG IV PRN (12:30)
[2021-03-06 13:15] VITALS: BP 105/59
[2021-03-06 13:45] VITALS: BP 104/58
--- NOTE | 2021-03-06 14:07 | RO ---
OPERATIVE NOTE DATE OF OPERATION: 03/06/2021 PREOPERATIVE DIAGNOSIS/INDICATION FOR SURGERY: Symptomatic prolapse, failed pessary. POSTOPERATIVE DIAGNOSIS: Symptomatic prolapse, failed pessary. PROCEDURE: Total vaginal hysterectomy with bilateral salpingectomy, the patient retained her ovaries at her request. She had sacrospinous suspension using Anchorsure and anterior and posterior repair with perineorrhaphy, cystourethroscopy. SURGEON: Sugar Merida MD [employer]: ANESTHESIA: General endotracheal anesthesia. DESCRIPTION OF PROCEDURE/FINDINGS: Richa was brought to the operating room where sufficient general endotracheal anesthesia was induced. She was prepped, draped and positioned in usual sterile fashion. Under traction the cervix at the introitus. The introitus is gaping. There is a large cystocele also to 0 under anesthesia and the rectocele maybe -0.5, so considerable prolapse present. The bladder was emptied with intermittent catheter and anterior and posterior aspect of the cervix grasped with single tooth tenaculum. Anterior and posterior retractors placed. Circumferential incision was made around the base of the cervix. This was carefully dissected in order to isolate the cardinal ligaments which were clamped, transected and ligated. De Harper clamps were used throughout the hysterectomy and #0 Vicryl suture was also used throughout the hysterectomy. Posterior dissection was continued. We entered the posterior reflection and clamped, transected and ligated the uterosacrals, held them for later reattachment but they were so flimsy that it is definitely a good thing we are using other support for this patient. Also, with the blunt dissection anteriorly, we did end up opening the anterior reflection as well and we were then able to just clamp, transect and ligate along the lateral aspect of the uterus until the uterus could be delivered. We then went back and the tubes were readily accessible. We dissected out the tubes along with a small right peritubal cyst. The ovaries which were small and normal in appearance and to palpation were left in place as the patient had requested. Pedicles were carefully evaluated. There was good hemostasis. Large enterocele was appreciable so we went ahead and did a small area, a little bit on the right side where we did Halban-like sutures, also did a modified Yoder's to just sort of close the space and what appeared most appropriate for her anatomy. We then closed also the edge of the peritoneum against itself as well and dissected anteriorly because there was such a large cystocele and removed an inverted triangle of tissue at the apex so that when we went ahead and brought the apex up to the sacrospinous that we would have a good repair there, tried to be fairly aggressive with this despite the patient's desire for postop function. But as you will note later in this dictation even with that she still had some persistent cystocele but at this point we tried to remove what was appropriate but this was a fairly significant amount there. We used 2-0 Vicryl to re-support the perivesical tissues for the anterior repair portion and then reapproximated the vaginal epithelium with 2-0 Vicryl, still having the cuff open and basically the apex of the cystocele corrected. We then dissected posteriorly to free perirectal tissues and dissect out for the sacrospinous ligament suspension. After we had dissected to the spine on the right side the tissues were so thin we did rectal exam and confirmed that we had not injured any of the rectal tissues, that we were not too close to them and went ahead and placed two Anchorsure anchors in the right sacrospinous ligament. Each of those anchors had two 2-0 Maxon sutures so that we had a total of four sutures with which to do a four point apical suspension. We used those sutures and those anchors, placed appropriately into sacrospinous ligament to come through the apex of the vagina as is typical with four point suspension using Martínez needle for [id number] placement. Having placed them we went ahead and closed the vaginal cuff with #0 Vicryl and then brought down those sutures with single throw each, placing them under tension with hemostats to hold them under that tension so that we could then do cystoscopy. With the cystoscopy we could see normal jets of air from both ureters. The light for the cystoscope was horrible, we were able to lighten up the screen and get an adequate view but that light cord was certainly not optimal, the picture suffered a little but we were readily able to see the jets of urine. We were also able to see sort of in the mid posterior of the view that we had elevated quite a bit of the bladder but there was still some cystocele present. Of course having brought down all the sutured we were able to see that as well. Never the less we could see that we had a good apical support and we needed that depth. We went ahead and completed the rest of throws on those Maxon and emptied the bladder and ended the cystoscopy where we did not see any injury to the bladder or anything like that. We then went ahead and did further anterior repair because it was just necessary in this patient. I made a vertical midline incision approximately 2 cm cephalad from the urethral meatus and then worked cephalad on the anterior wall of the bladder and then freed that tissue out laterally until we could get into the perivesical tissues to plicate those and re-support anteriorly and then further redundant vaginal epithelium was removed and then that vaginal wound was closed again with 2-0 Vicryl. With that as well as the apical plication we had good anterior support and had good apical support but we still had a disconnect of the rectovaginal septum from the perineal body as well as fairly broad posterior defect in the rectovaginal septum itself. We went ahead and removed an inverted triangle of tissue from the perineum and then dissected posteriorly over the rectum and then on the rectovaginal septum tissues using 2-0 Vicryl we plicated and then plicated the levators to re-support over that large rectocele, making an effort to leave enough caliber to the vagina to have comfortable intercourse in the future but also to correct that defect because there was an absence of support there without that plication. We did our best to create that balance and still leave functional caliber. We then continued that support to reconnecting the rectovaginal septum to the perineal body and then re-supported the perineal body as well with #0 Vicryl and then removed the redundant epithelium and closed the vaginal wound with 2-0 Vicryl in running locked stitch in the vagina and then with subcuticular stitch over the perineum. The procedure was ended. Martinez was placed at the end of the case as was vaginal packing. Estimated blood loss for the procedure: About 200 mL. Fluid replacement was Crystalloid. Complications: None. Condition and disposition: Richa tolerated the procedure well and was recovering in the recovery room in good condition.
[2021-03-06 14:15] VITALS: BP 103/57
[2021-03-06] MEDS: MULTIVITAMINS/MINERALS THERAP 1 TAB PO SCH (15:44)
[2021-03-06] MEDS ORDERED: PROMETHAZINE INJ 25 MG/ML VIAL (J2550) IV ONE (16:35)
[2021-03-06] MEDS: LR 1,000 ML IV SCH ×2 (17:15→19:54)
[2021-03-06 21:30] VITALS: BP 120/67
[2021-03-07 01:30] VITALS: BP 115/62
[2021-03-07] MEDS: LR 1,000 ML IV SCH (04:30)
[2021-03-07 05:07] VITALS: BP 121/66
[2021-03-07 06:19] LABS: HEMATOCRIT 26.1 % (36.0-47.0); MEAN CORPUSCULAR HEMOGLOBIN 33.9 pg (27.0-33.0); MEAN CORPUSCULAR HGB CONC 35.2 g/dl (32.0-36.5); MEAN CORPUSCULAR VOLUME 96.3 fl (80.0-96.0); PLATELET COUNT, AUTOMATED 207 10^3/uL (150-450); RED BLOOD COUNT 2.71 10^6/uL (4.00-5.40)
[2021-03-07 06:24] LABS: HEMOGLOBIN 9.2 g/dl (12.0-15.5)
[2021-03-07] MEDS ORDERED: OMEPRAZOLE 20 MG CAP PO SCH (09:00)
[2021-03-07 09:05] VITALS: BP 121/66
[2021-03-07] MEDS: MULTIVITAMINS/MINERALS THERAP 1 TAB PO SCH (09:05)
[2021-03-07] MEDS ORDERED: NORCO, ANEXSIA 5/325MG TABLET (HYDROcodone/ACETAMINOPHEN) PO PRN (10:15)
[2021-03-07] MEDS ORDERED: IBUPROFEN 600MG TAB PO PRN (10:15)
== END 2021-03-07 12:45 | disposition home or self-care (01) ==
LOC: M SDC 06:07 → M MS5PR 13:15 → M SDC 03-07 12:45
PROVIDERS: ATTEND Obstetrics & Gynecology
DX: N81.4 Uterovaginal prolapse, unspecified (principal); N80.0 Endometriosis of uterus; N88.8 Other specified noninflammatory disorders of cervix uteri; I10 Essential (primary) hypertension; E78.00 Pure hypercholesterolemia, unspecified; K57.92 Diverticulitis of intestine, part unspecified, without perforation or abscess without bleeding; K59.00 Constipation, unspecified; K22.70 Barrett's esophagus without dysplasia; K21.9 Gastro-esophageal reflux disease without esophagitis; M19.90 Unspecified osteoarthritis, unspecified site; F41.0 Panic disorder [episodic paroxysmal anxiety]; R51.9 Headache, unspecified; R06.83 Snoring; Z88.0 Allergy status to penicillin; Z88.2 Allergy status to sulfonamides; Z88.8 Allergy status to other drugs, medicaments and biological substances; Z79.899 Other long term (current) drug therapy; Z79.890 Hormone replacement therapy
CPT/HCPCS: 36415; 57260; 57282; 58262; 85027; 86850; 86900; 86901; 88307; 96374; C1713; J0131; J0690; J1100; J1170; J2250; J2370; J2405; J3010

== ENCOUNTER → 2021-06-10 | Outpatient (REF) | payer MEDICARE, BC, OTHER ==
[~2021-06-10] MED LIST changes: -LIDOCAINE 1% MDV 20ML VIAL SQ PRN; +LOSA100T45 PO; -LOSA100T50 PO; +LOSA50TA28 PO; -LOSA50TA88 PO; -PHENAZOPYRIDINE 100 MG TAB PO ONE; -UNRESOLVED CLARIFICATION ENTRY XX SCH
== END ==
LOC: M LAB REF 13:51
PROVIDERS: ATTEND Nurse Practitioner Family
DX: D23.39 Other benign neoplasm of skin of other parts of face (principal)

== ENCOUNTER → 2021-08-26 | Outpatient (REF) | payer MEDICARE, BC, OTHER | LOC: M LAB REF 12:08 | PROVIDERS: ATTEND Internal Medicine | DX: G25.81 Restless legs syndrome (principal); D50.9 Iron deficiency anemia, unspecified ==

== ENCOUNTER → 2021-09-30 | Outpatient (REF) | payer MEDICARE, BC, OTHER | LOC: M LAB REF 12:29 | PROVIDERS: ATTEND Internal Medicine | DX: G25.81 Restless legs syndrome (principal); D50.9 Iron deficiency anemia, unspecified ==

== ENCOUNTER → 2021-11-03 | Outpatient (REF) | payer MEDICARE, OTHER, BC | LOC: M LAB REF 13:06 | PROVIDERS: ATTEND Internal Medicine | DX: G25.81 Restless legs syndrome (principal); D50.9 Iron deficiency anemia, unspecified ==

== ENCOUNTER → 2021-12-10 | Outpatient (CLI) | payer MEDICARE, BC, OTHER | LOC: M WHC 10:19 | PROVIDERS: ATTEND Internal Medicine | DX: Z12.31 Encounter for screening mammogram for malignant neoplasm of breast (principal) ==

== ENCOUNTER → 2021-12-24 | Outpatient (CLI) | payer MEDICARE, BC, OTHER | LOC: M WHC 08:24 | PROVIDERS: ATTEND Internal Medicine | DX: Z12.31 Encounter for screening mammogram for malignant neoplasm of breast (principal); Z53.8 Procedure and treatment not carried out for other reasons ==

== ENCOUNTER → 2022-05-20 | Outpatient (REF) | payer MEDICARE, OTHER, BC | LOC: M LAB REF 12:11 | PROVIDERS: ATTEND Internal Medicine | DX: G25.81 Restless legs syndrome (principal); D50.9 Iron deficiency anemia, unspecified ==

== ENCOUNTER → 2022-09-02 | Outpatient (REF) | payer MEDICARE, OTHER, BC | LOC: M LAB REF 12:27 | PROVIDERS: ATTEND Internal Medicine | DX: G25.81 Restless legs syndrome (principal); D50.9 Iron deficiency anemia, unspecified ==

== ENCOUNTER → 2022-12-23 | Outpatient (REF) | payer MEDICARE, OTHER, BC ==
[~2022-12-23] MED LIST changes: -LOSA100T45 PO; +LOSA100T46 PO
== END ==
LOC: M LAB REF 12:05
PROVIDERS: ATTEND Internal Medicine
DX: G25.81 Restless legs syndrome (principal); D50.9 Iron deficiency anemia, unspecified

== ENCOUNTER → 2022-12-24 | Outpatient (CLI) | payer MEDICARE, OTHER, BC | LOC: M WUC 10:25 | PROVIDERS: ATTEND Internal Medicine | DX: R05.9 Cough, unspecified (principal) ==

== ENCOUNTER → 2023-01-01 | Outpatient (REF) | payer MEDICARE, BC, OTHER | LOC: M SFHCWAGY 12:59 | PROVIDERS: ATTEND Nurse Practitioner Family | DX: R30.0 Dysuria (principal) ==

== ENCOUNTER → 2023-01-01 | Outpatient (CLI) | payer MEDICARE, BC, OTHER | LOC: M WHC 09:16 | PROVIDERS: ATTEND Internal Medicine | DX: Z12.31 Encounter for screening mammogram for malignant neoplasm of breast (principal); M81.0 Age-related osteoporosis without current pathological fracture; M85.851 Other specified disorders of bone density and structure, right thigh; M85.852 Other specified disorders of bone density and structure, left thigh ==

== ENCOUNTER → 2023-03-15 | Outpatient (REF) | payer MEDICARE, BC, OTHER | LOC: M LAB REF 12:44 | PROVIDERS: ATTEND Internal Medicine | DX: R00.2 Palpitations (principal); I49.8 Other specified cardiac arrhythmias ==

== ENCOUNTER → 2023-06-15 | Outpatient (REF) | payer MEDICARE, BC, OTHER ==
[2023-06-16 17:26] LABS: HEPATITIS B CORE ANTIBODY IGM NEGATIVE (NEGATIVE); HEPATITIS C VIRUS ABY INDEX 0.04 INDEX (<0.8)
== END ==
LOC: M LAB REF 13:31
PROVIDERS: ATTEND Internal Medicine
DX: R74.8 Abnormal levels of other serum enzymes (principal)

== ENCOUNTER → 2023-07-05 | Outpatient (CLI) | payer MEDICARE, BC, OTHER | LOC: M RAD 08:13 | PROVIDERS: ATTEND Internal Medicine | DX: R10.11 Right upper quadrant pain (principal) ==

== ENCOUNTER → 2023-07-16 | Outpatient (REF) | payer MEDICARE, BC, OTHER ==
[2023-07-16 18:09] LABS: IMMUNOGLOBULIN A 339.4 MG/DL (40-350)
[2023-07-16 18:10] LABS: FERRITIN 50.7 NG/ML (7.3-270.7)
[2023-07-19 21:07] LABS: ALPHA 1 ANTITRYPSIN 165 mg/dL (101-187); ANTINUCLEAR ANTIBODIES DIRECT Negative (Negative); CERULOPLASMIN 30.6 mg/dL (19.0-39.0); TISSUE TRANSGLUTAMINASE IgA <2 U/mL (0-3)
== END ==
LOC: M LAB REF 16:47
PROVIDERS: ATTEND Internal Medicine
DX: R74.01 Elevation of levels of liver transaminase levels (principal)

== ENCOUNTER → 2023-07-23 | Outpatient (REF) | payer MEDICARE, OTHER | LOC: M LAB REF 11:50 | PROVIDERS: ATTEND Internal Medicine | DX: R74.01 Elevation of levels of liver transaminase levels (principal) ==

== ENCOUNTER 2023-10-18 07:38 | Day surgery (SDC) | payer MEDICARE, BC ==
[~2023-10-18] VITALS: Ht 152.4 cm; Wt 49.9 kg
[~2023-10-18 07:38] MED LIST changes: +AMLO1TAB24 PO; +KP F1200 PO; +MULTTAB61 PO; +NS 1,000 ML IV ONE
[2023-10-18] MEDS ORDERED: propofoL 500 MG/50 ML VIAL As Ordered ONE (09:30)
[2023-10-18 09:36] VITALS: TEMP 97.9
[2023-10-18 09:57] VITALS: BP 133/77; O2SAT 98
== END 2023-10-18 10:00 | disposition home or self-care (01) ==
LOC: M OPP 07:38
PROVIDERS: ATTEND Internal Medicine Gastroenterology
DX: K22.89 Other specified disease of esophagus (principal); K44.9 Diaphragmatic hernia without obstruction or gangrene; K22.70 Barrett's esophagus without dysplasia; R12 Heartburn; I10 Essential (primary) hypertension; Z79.2 Long term (current) use of antibiotics; Z79.899 Other long term (current) drug therapy; Z88.0 Allergy status to penicillin; Z88.2 Allergy status to sulfonamides; Z88.8 Allergy status to other drugs, medicaments and biological substances; Z91.013 Allergy to seafood

== ENCOUNTER → 2023-12-08 | Outpatient (REF) | payer MEDICARE, OTHER ==
[~2023-12-08] MED LIST changes: -NS 1,000 ML IV ONE
== END ==
LOC: M LAB REF 13:29
PROVIDERS: ATTEND Internal Medicine
DX: R74.01 Elevation of levels of liver transaminase levels (principal)

== ENCOUNTER → 2023-12-08 | Outpatient (REF) | payer MEDICARE, OTHER | LOC: M SFHCDERM 17:56 | PROVIDERS: ATTEND Physician Assistant | DX: L72.0 Epidermal cyst (principal) ==

== ENCOUNTER → 2024-01-05 | Outpatient (CLI) | payer MEDICARE, BC | LOC: M WHC 08:54 | PROVIDERS: ATTEND Internal Medicine | DX: Z12.31 Encounter for screening mammogram for malignant neoplasm of breast (principal) ==

== ENCOUNTER → 2024-01-25 | Outpatient (REF) | payer MEDICARE, BC | LOC: M LAB REF 08:14 | PROVIDERS: ATTEND Internal Medicine | DX: R74.01 Elevation of levels of liver transaminase levels (principal) ==

== ENCOUNTER 2024-02-25 15:12 | Outpatient (CLI) | payer MEDICARE, BC ==
[~2024-02-25] VITALS: Ht 152.4 cm; Wt 51.0 kg
[2024-02-25 16:20] VITALS: BP 150/83; O2SAT 98
[2024-02-25] MEDS: ZOLEDRONIC ACID 5 MG in IV 1 EA IV ONE (16:26)
[2024-02-25 17:30] VITALS: BP 144/82; O2SAT 98
== END 2024-02-25 17:30 ==
LOC: M INFU 15:12
PROVIDERS: ATTEND Internal Medicine
DX: M81.8 Other osteoporosis without current pathological fracture (principal); Z88.0 Allergy status to penicillin; Z88.2 Allergy status to sulfonamides; Z88.8 Allergy status to other drugs, medicaments and biological substances; Z91.013 Allergy to seafood
CPT/HCPCS: 96365; J3489

== ENCOUNTER → 2024-03-27 | Outpatient (REF) | payer MEDICARE, OTHER | LOC: M LAB REF 12:57 | PROVIDERS: ATTEND Internal Medicine | DX: R74.01 Elevation of levels of liver transaminase levels (principal) ==

== ENCOUNTER → 2025-01-05 | Outpatient (CLI) | payer MEDICARE, BC | LOC: M WHC 08:55 | PROVIDERS: ATTEND Internal Medicine | DX: Z12.31 Encounter for screening mammogram for malignant neoplasm of breast (principal); Z13.820 Encounter for screening for osteoporosis; M85.89 Other specified disorders of bone density and structure, multiple sites; R92.333 Mammographic heterogeneous density, bilateral breasts ==

== ENCOUNTER → 2025-01-30 | Outpatient (REF) | payer MEDICARE, BC | LOC: M SFHCDERM 08:33 | PROVIDERS: ATTEND Physician Assistant | DX: C44.329 Squamous cell carcinoma of skin of other parts of face (principal) ==

== ENCOUNTER → 2025-04-30 | Outpatient (CLI) | payer MEDICARE, BC ==
[~2025-04-30] MED LIST changes: +PROHANCE 279.3MG/ML 5ML VIAL ONE
== END ==
LOC: M PLAIMG 14:25
PROVIDERS: ATTEND Ophthalmology
DX: H53.2 Diplopia (principal); H50.22 Vertical strabismus, left eye
CPT/HCPCS: 70543; 70553; A9579